=== PATIENT | male | born 1940 | race Caucasian/White ===

== ENCOUNTER 2017-02-04 22:49 | Inpatient (IN) | payer MEDICARE, OTHER ==
[2017-02-04 21:31] VITALS: BMI 37.5
[2017-02-04] MEDS ORDERED: Lidocaine 2% Inj (20ml) ONE (22:55)
[2017-02-04] MEDS ORDERED: Midazolam 2 MG/2 ML VIAL ONE ×2 (22:56→23:14)
[2017-02-04] MEDS ORDERED: Phenylephrine 10 mg/ml Inj ONE ×2 (23:31→23:33)
--- NOTE | 2017-02-05 00:09 | CP.PCM.PN ---
Subjective - Date & Time of Evaluation Date of Evaluation: 02/04/17 Time of Evaluation: 23:35 - Subjective Subjective: s/p LHCx for new LBBB Assessment and Plan (1) S/P angioplasty with stent Assessment & Plan: s/p LHCx for new LBBB - transfer from [facility] for code heart Coronary Anatomy Findings left main patent LAD - proximal 90% with haziness - mid 50-60% Diagonal - ostial 50% LCx stent patent RCA mild mid 40% LVEF 25-30% LVEDP 29 Post angioplasty of proximal LAD lesion there was thrombus noted in the proximal LAD for which intracoronary integrillin and heparin was given Proximal LAD stented with 3.5x15 xience MADELEINE Recommendations Cont with DAPT x 1 year evaluate for mid LAD lesion with nuclear stress test ( to follow ) who is his primary caridologist GDMT for CAD and CHF consult nephrology ( ) for HD patient to be followed by ( primary cps team lead for the patient ) Status: Acute
[2017-02-05] MEDS ORDERED: Iodixanol 320 MG/ML 200 ML BOTTLE IV ONE (00:37)
--- NOTE | 2017-02-05 00:58 | CP.PCM.CON ---
History of Present Illness - History of Present Illness History of Present Illness: 77 y/o male with h/o CAD,PR s/p stents in the past,HTN,DM,CHF,Hyperlipidemia , ESRD on hemod[facility]ys[facility] for Cardiac Cath .Patient c/o shortness of breath and epigastric pain associated with nausea.No palpitation,radiation of pain.In Er at [facility] the Troponin was elevated with new LBBB. Cardiology note- s/p LHCx for new LBBB - transfer from [facility] for code heart Coronary Anatomy Findings left main patent LAD - proximal 90% with haziness - mid 50-60% Diagonal - ostial 50% LCx stent patent RCA mild mid 40% LVEF 25-30% LVEDP 29 Post angioplasty of proximal LAD lesion there was thrombus noted in the proximal LAD for which intracoronary integrillin and heparin was given Proximal LAD stented with 3.5x15 xience MADELEINE Review of Systems - Constitutional Constitutional: Anorexia, Chills, Fatigue, Fever, Malaise, Weakness - EENT Eyes: absent: Diplopia, Loss of Vision Ears: absent: Ear Discharge, Ear Pain, Dizziness Nose/Mouth/Throat: absent: Epistaxis, Dry Mouth, Neck Pain - Cardiovascular Cardiovascular: As Per HPI, Dyspnea, Dyspnea on Exertion, Edema. absent: Chest Pain, Diaphoresis, Irregular Heart Rhythm, Pain Radiating to Arm/Neck/Jaw, Lightheadedness, Palpitations, Radiating Pain, Rapid Heart Rate, Syncope - Respiratory Respiratory: Dyspnea, Dyspnea on Exertion. absent: Cough, Wheezing - Gastrointestinal Gastrointestinal: Abdominal Pain, Diarrhea, Nausea. absent: Bloating, Vomiting - Genitourinary Genitourinary: absent: Dysuria, Flank Pain, Urinary Incontinence - Musculoskeletal Musculoskeletal: absent: Neck Pain, Numbness - Integumentary Integumentary: absent: Dry Skin, Rash - Neurological Neurological: absent: Confusion, Dizziness - Endocrine Endocrine: absent: Polydipsia - Hematologic/Lymphatic Hematologic: absent: Easy Bleeding Past Patient History - Infectious Disease Hx of Infectious Diseases: None - Tetanus Immunizations Tetanus Immunization: Unknown - Past Medical History & Family History Past Medical History?: Yes - Past Social History Smoking Status: Former Smoker Chewing Tobacco Use: No Cigar Use: No Occupation: retired Alcohol: Occasional Drugs: Denies Home Situation {Lives}: Alone - CARDIAC Hx Congestive Heart Failure: Yes Hx Hypercholesterolemia: Yes Hx Hypertension: Yes - PULMONARY Hx Respiratory Disorders: Yes - NEUROLOGICAL Hx Neurological Disorder: No - HEENT Hx HEENT Problems: Yes - RENAL Hx Chronic Kidney Disease: Yes Hx Kidney Stones: No - ENDOCRINE/METABOLIC Hx Endocrine Disorders: Yes - HEMATOLOGICAL/ONCOLOGICAL Hx Human Immunodeficiency Virus (HIV): No - INTEGUMENTARY Hx Dermatological Problems: Yes - MUSCULOSKELETAL/RHEUMATOLOGICAL Hx Musculoskeletal Disorders: No - GASTROINTESTINAL Hx Gastrointestinal Disorders: No - GENITOURINARY/GYNECOLOGICAL Hx Genitourinary Disorders: No - PSYCHIATRIC Hx Psychophysiologic Disorder: No Hx Substance Use: No - SURGICAL HISTORY Hx Coronary Stent: Yes - ANESTHESIA Hx Anesthesia: Yes Hx Anesthesia Reactions: No Hx Malignant Hyperthermia: No Meds Allergies/Adverse Reactions: Allergies Allergy/AdvReac Type Severity Reaction Status Date / Time Sulfa (Sulfonamide Allergy PAIN Verified 12/25/16 01:58 Antibiotics) milk AdvReac NAUSEA Verified 12/25/16 01:58 - Medications Medications: Current Medications Aspirin (Ecotrin) 81 mg PO DAILY [facility] Calcium Acetate (Phoslo) 3 mg PO AC [facility] Cinacalcet (Sensipar) 30 mg PO DAILY [facility] Home Med (Insulin Lispro [Humalog Kwikpen U-100]) 4 units SQ TID [facility] Insulin Glargine (Lantus) 10 unit SC DAILY [facility] Metoprolol Succinate (Toprol Xl) 25 mg PO DAILY [facility] Physical Exam - Constitutional Appears: Non-toxic, No Acute Distress - Head Exam Head Exam: ATRAUMATIC, NORMAL INSPECTION, NORMOCEPHALIC - Eye Exam Eye Exam: EOMI, Normal appearance, PERRL - ENT Exam ENT Exam: Mucous Membranes Moist, Normal Exam - Neck Exam Neck exam: Positive for: Full Rom, Normal Inspection - Respiratory Exam Respiratory Exam: Rales (rales in both bases with scattered rhonchi), NORMAL BREATHING PATTERN. absent: Accessory Muscle Use - Cardiovascular Exam Cardiovascular Exam: REGULAR RHYTHM. absent: JVD - GI/Abdominal Exam GI & Abdominal Exam: Normal Bowel Sounds, Soft. absent: Distended, Organomegaly , Tenderness - Rectal Exam Rectal Exam: Deferred - Extremities Exam Extremities exam: Positive for: pedal edema (bilateral 1+ edema of legs). Negative for: calf tenderness - Neurological Exam Neurological exam: Oriented x3 - Psychiatric Exam Psychiatric exam: Normal Affect - Skin Skin Exam: Normal Color, Warm Results - EKG Data EKG Interpreted by: Other (done at [facility],not seen.Will repaet in am) - Imaging and Cardiology Chest x-ray Status: Image reviewed by me (bilateral congestion) Assessment & Plan - Assessment and Plan (Free Text) Assessment: 1.CAD/ Acute PR - transfer from [facility] for code heart .patient with elevated troponin and EKG with new LBBB Post angioplasty of proximal LAD lesion there was thrombus noted in the proximal LAD for which intracoronary integrillin and heparin given Proximal LAD stented with 3.5x15 xience MADELEINE Coronary Anatomy Findings left main patent, LAD - proximal 90% with haziness - mid 50-60% Diagonal - ostial 50% LCx stent patent RCA mild mid 40% LVEF 25-30% LVEDP 29 2.DM on insulin 3.HTN on metoprolol 4.Hyperlipidemia-Crestor,repeat lipids 5.CHF-for HD today 6.ESRD on HD M,W,F for HD today. 7.Hyperkalemia-HD patient \f/u labs
[2017-02-05] MEDS ORDERED: Albuterol 0.083% Inhal Sol (2.5 mg/3 mL) UD INH STA (01:11)
[2017-02-05] MEDS ORDERED: Nitroglycerin 2% Ointment Foilpak UD TOP STA (02:42)
[2017-02-05 02:53] LABS: ABG ALLEN TEST POS; ARTERIAL BLOOD GAS HCO3 24.8 mmol/L (21-28); ARTERIAL BLOOD GAS O2 SAT 98.1 % (95-98); ARTERIAL BLOOD GAS PCO2 47 mm/Hg (35-45); ARTERIAL BLOOD GAS PH 7.35 (7.35-7.45); ARTERIAL BLOOD GAS PO2 140 mm/Hg (80-100); ARTERIAL BLOOD GAS TCO2 27.3 mmol/L (22-28)
[2017-02-05 05:30] LABS: BASO % 0.4 % (0.0-2.0); EOS % 0.2 % (0.0-4.0); HEMOGLOBIN 12.7 g/dL (12.0-18.0); MEAN CORPUSCULAR HEMOGLOBIN 29.6 pg (27.0-31.0); MEAN CORPUSCULAR HGB CONC 33.3 g/dL (33.0-37.0); MEAN PLATELET VOLUME 8.6 fL (7.2-11.7); MONO # 0.7 K/uL (0.0-0.8); NEUT # 9.2 K/uL (1.8-7.0); NEUT % 84.4 % (50.0-75.0); NRBC % 0.1 % (0.0-2.0); PLATELET COUNT 200 K/uL (130-400); RBC 4.29 Mil/uL (4.40-5.90); RED CELL DISTRIBUTION WIDTH 15.7 % (11.5-14.5); WHITE BLOOD COUNT 10.9 K/uL (4.8-10.8)
[2017-02-05 05:46] LABS: ALBUMIN 3.6 g/dL (3.5-5.0)
[2017-02-05 05:49] LABS: ALB/GLOB RATIO 1.1 (1.0-2.1)
[2017-02-05 05:50] LABS: CALCIUM 9.4 mg/dl (8.6-10.4); MAGNESIUM 2.1 mg/dL (1.6-2.3)
[2017-02-05 06:20] LABS: BANDS 2 % (0-2); LYMPHOCYTE 6 % (20-40); MONOCYTE 5 % (0-10); NEUTROPHIL 87 % (50-75); PLATELET ESTIMATE NORMAL (NORMAL); TOTAL CELLS COUNTED 100
[2017-02-05 06:21] LABS: TROPONIN I 54.9 ng/mL (0.00-0.120)
--- NOTE | 2017-02-05 07:27 | CP.PCM.PN ---
Subjective - Date & Time of Evaluation Date of Evaluation: 02/05/17 Time of Evaluation: 03:00 - Subjective Subjective: Patient evaluated for SOB, tachycardia, hypoxia developed. After patient arrived form cath lab tech was on bipap, gradually switched to ventimask, then became sob and hypoxic. I was called for above patient was already put back on the bipap 15/5/100%, spo2 improved, hr slowed down, ekg, LBBB noticed. CXR done at this time showed significant pulmonary venous congestion. HD requested and called for early hd for the patient, patient was not comfortable on bipap, fio2 reduced to 80%. Chest b/l some scattered ronchi CVS tachycardia PA soft Ext right arm av fistula, dp and pt puse felt on both legs, right groin no swelling [employer] patient oriented x3 no fnd Objective - Vital Signs/Intake and Output Vital Signs (last 24 hours): Temp Pulse Resp BP Pulse Ox 98.3 F 90 19 99/44 L 100 02/05/17 04:20 02/05/17 06:10 02/05/17 06:10 02/05/17 06:50 02/05/17 06:10 Intake and Output: 02/05/17 02/05/17 06:59 18:59 Intake Total 90 Output Total 20 Balance 70 - Medications Medications: Current Medications Aspirin (Ecotrin) 81 mg PO DAILY [facility] Calcium Acetate (Phoslo) 3 mg PO AC JO[facility] Cinacalcet (Sensipar) 30 mg PO DAILY [facility] Famotidine (Pepcid) 20 mg PO BID [facility] Home Med (Insulin Lispro [Humalog Kwikpen U-100]) 4 units SQ TID [facility] Insulin Glargine (Lantus) 10 unit SC DAILY [facility] Insulin Human Regular (Novolin R) 0 unit SC ACHS [facility] PRN Reason: Protocol Metoprolol Succinate (Toprol Xl) 25 mg PO DAILY [facility] Rosuvastatin Calcium (Crestor) 10 mg PO HS [facility] - Labs Labs: 02/05/17 05:25 02/05/17 05:25
[2017-02-05] MEDS: (Novolin R) Insulin Human Regular 100 units/ml vial SC SCH ×4 (07:45→21:36)
--- NOTE | 2017-02-05 07:49 | CP.PCM.CON ---
History of Present Illness - History of Present Illness History of Present Illness: Patient is well known to me from my practive. Patient is a 77 year old male with PMH HTN, CAD s/p PCI LAD and LCx, who presents from [facility] with dyspnea and new LBBB. The patient had intervention of in stent restenosis of the L circumflex artery in December and was to be scheduled for elective intervention of the proximal LAD. The patient did not follow up after coronary intervention. The patient complained of epigastric pain and dyspnea on the day of admission. Code heart was called due to new LBBB. The patient underwent cardiac catheteization and intervention by Dr. Fuentes. He was found to have haziness of the proximal LAD, suspicious for ruptured plaque. MADELEINE was placed. Troponin was noted to be 54. He is currently receiving HD in the ICU. There is no current chest pain. Review of Systems - Constitutional Constitutional: absent: As Per HPI, Anorexia, Chills, Daytime Sleepiness, Excessive Sweating, Fatigue, Fever, Frequent Falls, Headache, Increased Appetite , Lethargy, Malaise, Night Sweats, Snoring, Sleep Apnea, Weight Gain, Weight Loss, Weakness, Other - EENT Eyes: absent: As Per HPI, Blind Spots, Blurred Vision, Change in Vision, Decreased Night Vision, Diplopia, Discharge, Dry Eye, Exophthalmos, Floaters, Irritation, Itchy Eyes, Loss of Peripheral Vision, Pain, Photophobia, Requires Corrective Lenses, Sees Flashes, Spots in Vision, Tunnel Vision, Other Visual Disturbances, Loss of Vision, Other Ears: absent: As Per HPI, Decreased Hearing, Ear Discharge, Ear Pain, Tinnitus, Abnormal Hearing, Disequilibrium, Dizziness, Other Nose/Mouth/Throat: absent: As Per HPI, Epistaxis, Nasal Congestion, Nasal Discharge, Nasal Obstruction, Nasal Trauma, Nose Pain, Post Nasal Drip, Sinus Pain, Sinus Pressure, Bleeding Gums, Change in Voice, Dental Pain, Dry Mouth, Dysphagia, Halitosis, Hoarsness, Lip Swelling, Mouth Lesions, Mouth Pain, Odynophagia, Sore Throat, Throat Swelling, Tongue Swelling, Facial Pain, Neck Pain, Neck Mass, Other - Cardiovascular Cardiovascular: Dyspnea - Respiratory Respiratory: Dyspnea - Gastrointestinal Gastrointestinal: Abdominal Pain - Genitourinary Genitourinary: absent: As Per HPI, Change in Urinary Stream, Difficulty Urinating, Dysuria, Flank Pain, Hematuria, Pyuria, Nocturia, Urinary Incontinence, Urinary Frequency, Urinary Hesitance, Urinary Urgency, Voiding Freq/Small Amts, Freq UTI, Hx Renal/Bladder Calculi, Hx /Renal Surgery, Bladder Distension, Other - Musculoskeletal Musculoskeletal: absent: As Per HPI, Abnormal Gait, Arthralgias, Atrophy, Back Pain, Deformity, Joint Swelling, Limited Range of Motion, Loss of Height, Muscle Cramps, Muscle Weakness, Myalgias, Neck Pain, Numbness, Radiating Pain into Limb, Stiffness, Tingling, Other - Integumentary Integumentary: absent: As Per HPI, Acne, Alopecia, Bleeding Lesions, Change in Hair, Change in Nails, Change in Pigmentation, Changing Lesions, Dry Skin, Erythema, Furuncle, Hirsutism, Lesions, New Lesions, Non-Healing Lesions, Photosensitivity, Pruritus, Rash, Skin Pain, Skin Ulcer, Sores, Striae, Swelling , Unusual Bruising, Wounds, Jaundice, Other - Neurological Neurological: absent: As Per HPI, Abnormal Gait, Abnormal Hearing, Abnormal Movements, Abnormal Speech, Behavioral Changes, Burning Sensations, Confusion, Convulsions, Disequilibrium, Dizziness, Numbness, Focal Weakness, Frequent Falls , Headaches, Lack of Coordination, Loss of Vision, Memory Loss, Paresthesias, Radicular Pain, Restless Legs, Sensory Deficit, Syncope, Tingling, Tremor, Vertigo, Weakness, Other Visual Disturbances, Other - Psychiatric Psychiatric: absent: As Per HPI, Abnormal Sleep Pattern, Anhedonia, Anxiety, Auditory Hallucinations, Behavioral Changes, Change in Appetite, Change in Libido, Confusion, Depression, Difficulty Concentrating, Hallucinations, Homicidal Ideation, Hopelessness, Irritability, Memory Loss, Mood Swings, Panic Attacks, Paranoia, Suicidal Ideation, Visual Hallucinations, Tactile Hallucinations, Other - Endocrine Endocrine: absent: As Per HPI, Change in Body Appearance, Change in Libido, Cold Intolorance, Deepening of Voice, Excessive Sweating, Fatigue, Flushing, Heat Intolorance, Increase in Ring/Shoe/Hat Size, Palpitations, Polydipsia, Polyphagia, Polyuria, Other - Hematologic/Lymphatic Hematologic: absent: As Per HPI, Easy Bleeding, Easy Bruising, Lymphadenopathy, Other Past Patient History - Infectious Disease Hx of Infectious Diseases: None - Tetanus Immunizations Tetanus Immunization: Unknown - Past Medical History & Family History Past Medical History?: Yes - Past Social History Smoking Status: Former Smoker Chewing Tobacco Use: No Cigar Use: No Occupation: retired Alcohol: Occasional Drugs: Denies Home Situation {Lives}: Alone - CARDIAC Hx Congestive Heart Failure: Yes Hx Hypercholesterolemia: Yes Hx Hypertension: Yes - PULMONARY Hx Respiratory Disorders: Yes - NEUROLOGICAL Hx Neurological Disorder: No - HEENT Hx HEENT Problems: Yes - RENAL Hx Chronic Kidney Disease: Yes Hx Kidney Stones: No - ENDOCRINE/METABOLIC Hx Endocrine Disorders: Yes - HEMATOLOGICAL/ONCOLOGICAL Hx Human Immunodeficiency Virus (HIV): No - INTEGUMENTARY Hx Dermatological Problems: Yes - MUSCULOSKELETAL/RHEUMATOLOGICAL Hx Musculoskeletal Disorders: No - GASTROINTESTINAL Hx Gastrointestinal Disorders: No - GENITOURINARY/GYNECOLOGICAL Hx Genitourinary Disorders: No - PSYCHIATRIC Hx Psychophysiologic Disorder: No Hx Substance Use: No - SURGICAL HISTORY Hx Coronary Stent: Yes - ANESTHESIA Hx Anesthesia: Yes Hx Anesthesia Reactions: No Hx Malignant Hyperthermia: No Meds Allergies/Adverse Reactions: Allergies Allergy/AdvReac Type Severity Reaction Status Date / Time Sulfa (Sulfonamide Allergy PAIN Verified 12/25/16 01:58 Antibiotics) milk AdvReac NAUSEA Verified 12/25/16 01:58 - Medications Medications: Current Medications Aspirin (Ecotrin) 81 mg PO DAILY [facility] Calcium Acetate (Phoslo) 3 mg PO AC [facility] Cinacalcet (Sensipar) 30 mg PO DAILY [facility] Famotidine (Pepcid) 20 mg PO BID [facility] Home Med (Insulin Lispro [Humalog Kwikpen U-100]) 4 units SQ TID [facility] Insulin Glargine (Lantus) 10 unit SC DAILY [facility] Insulin Human Regular (Novolin R) 0 unit SC ACHS [facility] PRN Reason: Protocol Metoprolol Succinate (Toprol Xl) 25 mg PO DAILY [facility] Rosuvastatin Calcium (Crestor) 10 mg PO HS [facility] Physical Exam - Constitutional Appears: Non-toxic - Head Exam Head Exam: NORMAL INSPECTION - Eye Exam Eye Exam: Normal appearance - ENT Exam ENT Exam: Mucous Membranes Moist - Neck Exam Neck exam: Positive for: Normal Inspection - Respiratory Exam Respiratory Exam: Decreased Breath Sounds - Cardiovascular Exam Cardiovascular Exam: REGULAR RHYTHM - GI/Abdominal Exam GI & Abdominal Exam: Normal Bowel Sounds - Rectal Exam Rectal Exam: Deferred - Extremities Exam Extremities exam: Positive for: pedal edema - Back Exam Back exam: NORMAL INSPECTION - Neurological Exam Neurological exam: Alert, Oriented x3 - Psychiatric Exam Psychiatric exam: Normal Affect - Skin Skin Exam: Normal Color Results - Vital Signs Recent Vital Signs: Last Vital Signs Temp 97.5 F L 02/05/17 07:00 Pulse 90 02/05/17 07:00 Resp 20 02/05/17 07:00 BP 104/41 L 02/05/17 07:00 Pulse Ox 100 02/05/17 07:00 - Labs Result Diagrams: 02/05/17 05:25 02/05/17 05:25 Labs: Laboratory Results - last 24 hr 02/05/17 02/05/17 02/05/17 02:45 05:25 05:25 WBC 10.9 H RBC 4.29 L Hgb 12.7 Hct 38.2 MCV 89.0 MCH 29.6 MCHC 33.3 RDW 15.7 H Plt Count 200 MPV 8.6 Neut % (Auto) 84.4 H Lymph % (Auto) 9.0 L [place] % (Auto) 6.0 Eos % (Auto) 0.2 Baso % (Auto) 0.4 Neut # 9.2 H Lymph # 1.0 [place] # 0.7 Eos # 0.0 Baso # 0.0 Neutrophils % (Manual) 87 H Band Neutrophils % 2 Lymphocytes % (Manual) 6 L Monocytes % (Manual) 5 Platelet Estimate Normal Puncture Site Lr pCO2 47 H pO2 140 H HCO3 24.8 ABG pH 7.35 ABG Total CO2 27.3 ABG O2 Saturation 98.1 H ABG Base Excess -0.2 [place] Test Pos ABG Potassium 5.5 H A-a O2 Difference 514.0 Respiratory Index 3.7 Sodium 137.0 138 Chloride 101.0 92 L Glucose 157 H Lactate 1.1 Vent Mode Bipap FiO2 100.0 Inspiratory BiPAP 15 Expiratory BiPAP 5 Potassium 6.5 H* Carbon Dioxide 27 Anion Gap 26 H BUN 81 H Creatinine 11.6 H* Est GFR ( Amer) 5 Est GFR (Non-Af Amer) 4 POC Glucose (mg/dL) Random Glucose 131 H Calcium 9.4 Phosphorus 7.0 H Magnesium 2.1 Total Bilirubin 0.5 AST 117 H ALT 29 Alkaline Phosphatase 89 Troponin I 54.9000 H* NT-Pro-B Natriuret Pep 68973 H Total Protein 7.0 Albumin 3.6 Globulin 3.4 Albumin/Globulin Ratio 1.1 Triglycerides 295 H Cholesterol 148 LDL Cholesterol Direct 78 HDL Cholesterol 23 L Arterial Blood Potassium 5.5 H 02/05/17 07:15 WBC RBC Hgb Hct MCV MCH MCHC RDW Plt Count MPV Neut % (Auto) Lymph % (Auto) [place] % (Auto) Eos % (Auto) Baso % (Auto) Neut # Lymph # [place] # Eos # Baso # Neutrophils % (Manual) Band Neutrophils % Lymphocytes % (Manual) Monocytes % (Manual) Platelet Estimate Puncture Site pCO2 pO2 HCO3 ABG pH ABG Total CO2 ABG O2 Saturation ABG Base Excess [place] Test ABG Potassium A-a O2 Difference Respiratory Index Sodium Chloride Glucose Lactate Vent Mode FiO2 Inspiratory BiPAP Expiratory BiPAP Potassium Carbon Dioxide Anion Gap BUN Creatinine Est GFR ( Amer) Est GFR (Non-Af Amer) POC Glucose (mg/dL) 111 H Random Glucose Calcium Phosphorus Magnesium Total Bilirubin AST ALT Alkaline Phosphatase Troponin I NT-Pro-B Natriuret Pep Total Protein Albumin Globulin Albumin/Globulin Ratio Triglycerides Cholesterol LDL Cholesterol Direct HDL Cholesterol Arterial Blood Potassium - EKG Data EKG Interpreted by: Myself Assessment & Plan (1) Acute myocardial infarction involving left anterior descending (LAD) coronary artery Assessment and Plan: will monitor in ICU. check cardiac enzymes. check echocardiogram. continue ASA/Brilinta. Status: Acute (2) Diabetes mellitus Assessment and Plan: medical therapy Status: Chronic (3) ESRD (end stage renal disease) Assessment and Plan: on dialysis Status: Chronic (4) HTN (hypertension) Assessment and Plan: blood pressure control Status: Chronic
[2017-02-05 08:16] LABS: CALCIUM 9.3 mg/dl (8.6-10.4)
--- NOTE | 2017-02-05 09:21 | RAD ---
Chest x-ray single frontal view History: Shortness of breath. Comparison: 02/05/2017 Findings: Prominent diffuse increased interstitial lung markings bilaterally. Additional superimposed confluent consolidative opacity seen throughout the left lung and within the right mid to lower lung zone. Right axillary vascular stent in place. Calcification at the aortic knob. Cardiomegaly. Degenerative changes in the spine and shoulders. Impression: Prominent diffuse increased interstitial lung markings bilaterally. Additional superimposed confluent consolidative opacity seen throughout the left lung and within the right mid to lower lung zone. Right axillary vascular stent in place. Calcification at the aortic knob. Cardiomegaly.
[2017-02-05] MEDS ORDERED: (Lantus) Insulin Glargine, Recombinant SC SCH (10:00)
[2017-02-05] MEDS ORDERED: (Novolog) Insulin Aspart, Recombinant 100 u/ml 10 ml vial SC SCH (10:00)
[2017-02-05] MEDS: Metoprolol Succinate 25 mg XL Tab PO SCH (10:01)
--- NOTE | 2017-02-05 11:16 | CP.PCM.CON ---
History of Present Illness - History of Present Illness History of Present Illness: 77 y/o male with h/o CAD,SC s/p stents in the past,HTN,DM,CHF,Hyperlipidemia , ESRD [facility] for Card[facility] Cath .Patient c/o shortness of breath and epigastric pain associated with nausea.No palpitation,radiation of pain.In Er at [facility] the Troponin was elevated with new LBBB. Cardiology note- s/p LHCx for new LBBB - transfer from [facility] for code heart Coronary Anatomy Findings left main patent LAD - proximal 90% with haziness - mid 50-60% Diagonal - ostial 50% LCx stent patent RCA mild mid 40% LVEF 25-30% LVEDP 29 Post angioplasty of proximal LAD lesion there was thrombus noted in the proximal LAD for which intracoronary integrillin and heparin was given Proximal LAD stented with 3.5x15 xience MADELEINE PMH: ESRD DM 2 HTN CAD CHF RECURRENCES DL PSH: CARDIAC STENT AV FISTULA S/P EMERGENT DIALYSIS LAST PM FOR CHF Review of Systems - Constitutional Constitutional: Daytime Sleepiness - EENT Eyes: absent: As Per HPI, Blind Spots, Blurred Vision, Change in Vision, Decreased Night Vision, Diplopia, Discharge, Dry Eye, Exophthalmos, Floaters, Irritation, Itchy Eyes, Loss of Peripheral Vision, Pain, Photophobia, Requires Corrective Lenses, Sees Flashes, Spots in Vision, Tunnel Vision, Other Visual Disturbances, Loss of Vision, Other Ears: absent: As Per HPI, Decreased Hearing, Ear Discharge, Ear Pain, Tinnitus, Abnormal Hearing, Disequilibrium, Dizziness, Other Nose/Mouth/Throat: absent: As Per HPI, Epistaxis, Nasal Congestion, Nasal Discharge, Nasal Obstruction, Nasal Trauma, Nose Pain, Post Nasal Drip, Sinus Pain, Sinus Pressure, Bleeding Gums, Change in Voice, Dental Pain, Dry Mouth, Dysphagia, Halitosis, Hoarsness, Lip Swelling, Mouth Lesions, Mouth Pain, Odynophagia, Sore Throat, Throat Swelling, Tongue Swelling, Facial Pain, Neck Pain, Neck Mass, Other - Cardiovascular Cardiovascular: Dyspnea on Exertion - Respiratory Respiratory: Dyspnea on Exertion - Gastrointestinal Gastrointestinal: Constipation - Genitourinary Genitourinary: As Per HPI - Musculoskeletal Musculoskeletal: Muscle Weakness, Stiffness - Integumentary Integumentary: absent: As Per HPI, Acne, Alopecia, Bleeding Lesions, Change in Hair, Change in Nails, Change in Pigmentation, Changing Lesions, Dry Skin, Erythema, Furuncle, Hirsutism, Lesions, New Lesions, Non-Healing Lesions, Photosensitivity, Pruritus, Rash, Skin Pain, Skin Ulcer, Sores, Striae, Swelling , Unusual Bruising, Wounds, Jaundice, Other - Neurological Neurological: absent: As Per HPI, Abnormal Gait, Abnormal Hearing, Abnormal Movements, Abnormal Speech, Behavioral Changes, Burning Sensations, Confusion, Convulsions, Disequilibrium, Dizziness, Numbness, Focal Weakness, Frequent Falls , Headaches, Lack of Coordination, Loss of Vision, Memory Loss, Paresthesias, Radicular Pain, Restless Legs, Sensory Deficit, Syncope, Tingling, Tremor, Vertigo, Weakness, Other Visual Disturbances, Other Past Patient History - Infectious Disease Hx of Infectious Diseases: None - Tetanus Immunizations Tetanus Immunization: Unknown - Past Medical History & Family History Past Medical History?: Yes - Past Social History Smoking Status: Former Smoker Chewing Tobacco Use: No Cigar Use: No Occupation: retired Alcohol: Occasional Drugs: Denies Home Situation {Lives}: Alone - CARDIAC Hx Congestive Heart Failure: Yes Hx Hypercholesterolemia: Yes Hx Hypertension: Yes - PULMONARY Hx Respiratory Disorders: Yes - NEUROLOGICAL Hx Neurological Disorder: No - HEENT Hx HEENT Problems: Yes - RENAL Hx Chronic Kidney Disease: Yes Date of Last Dialysis Treatment: 02/04/17 Hx Kidney Stones: No - ENDOCRINE/METABOLIC Hx Endocrine Disorders: Yes Hx Diabetes Mellitus Type 2: Yes - HEMATOLOGICAL/ONCOLOGICAL Hx Human Immunodeficiency Virus (HIV): No - INTEGUMENTARY Hx Dermatological Problems: Yes - MUSCULOSKELETAL/RHEUMATOLOGICAL Hx Musculoskeletal Disorders: No - GASTROINTESTINAL Hx Gastrointestinal Disorders: No - GENITOURINARY/GYNECOLOGICAL Hx Genitourinary Disorders: No - PSYCHIATRIC Hx Psychophysiologic Disorder: No Hx Substance Use: No - SURGICAL HISTORY Hx Arteriovenous Shunt: Yes Hx Cardiac Catheterization: Yes Hx Coronary Stent: Yes - ANESTHESIA Hx Anesthesia: Yes Hx Anesthesia Reactions: No Hx Malignant Hyperthermia: No Meds Allergies/Adverse Reactions: Allergies Allergy/AdvReac Type Severity Reaction Status Date / Time Sulfa (Sulfonamide Allergy PAIN Verified 12/25/16 01:58 Antibiotics) milk AdvReac NAUSEA Verified 12/25/16 01:58 - Medications Medications: Current Medications Aspirin (Ecotrin) 81 mg PO DAILY JOEL Last Admin: 02/05/17 10:01 Dose: 81 mg Calcium Acetate (Phoslo) 667 mg PO AC [facility] Cinacalcet (Sensipar) 30 mg PO DAILY [facility] Last Admin: 02/05/17 10:01 Dose: 30 mg Famotidine (Pepcid) 20 mg PO DAILY [facility] Last Admin: 02/05/17 10:01 Dose: 20 mg Heparin Sodium (Porcine) (Heparin) 5,000 units SC Q8 [facility] Insulin Glargine (Lantus) 10 unit SC DAILY [facility] Insulin Human Regular (Novolin R) 0 unit SC ACHS [facility] PRN Reason: Protocol Last Admin: 02/05/17 07:45 Dose: Not Given Metoprolol Succinate (Toprol Xl) 25 mg PO DAILY [facility] Last Admin: 02/05/17 10:01 Dose: 25 mg Rosuvastatin Calcium (Crestor) 10 mg PO HS [facility] Ticagrelor (Brilinta) 90 mg PO BID [facility] Last Admin: 02/05/17 10:01 Dose: 90 mg Physical Exam - Constitutional Appears: Well, Chronically Ill - Head Exam Head Exam: ATRAUMATIC, NORMAL INSPECTION - Eye Exam Eye Exam: EOMI, Normal appearance - Neck Exam Neck exam: Positive for: Normal Inspection. Negative for: Tenderness - Respiratory Exam Respiratory Exam: Clear to Auscultation Bilateral, NORMAL BREATHING PATTERN - Cardiovascular Exam Cardiovascular Exam: REGULAR RHYTHM, +S1 - GI/Abdominal Exam GI & Abdominal Exam: Soft. absent: Tenderness - Extremities Exam Extremities exam: Positive for: normal inspection. Negative for: tenderness - Neurological Exam Neurological exam: Alert, Oriented x3 - Skin Skin Exam: Dry Results - Vital Signs Recent Vital Signs: Last Vital Signs Temp 97.5 F L 02/05/17 08:00 Pulse 82 02/05/17 11:10 Resp 16 02/05/17 11:10 BP 125/61 02/05/17 10:34 Pulse Ox 94 L 02/05/17 11:10 - Labs Result Diagrams: 02/05/17 05:25 02/05/17 07:48 Labs: Laboratory Results - last 24 hr 02/05/17 02/05/17 02/05/17 02:45 05:25 05:25 WBC RBC Hgb Hct MCV MCH MCHC RDW Plt Count MPV Neut % (Auto) Lymph % (Auto) [place] % (Auto) Eos % (Auto) Baso % (Auto) Neut # Lymph # [place] # Eos # Baso # Neutrophils % (Manual) Band Neutrophils % Lymphocytes % (Manual) Monocytes % (Manual) Platelet Estimate Puncture Site Lr pCO2 47 H pO2 140 H HCO3 24.8 ABG pH 7.35 ABG Total CO2 27.3 ABG O2 Saturation 98.1 H ABG Base Excess -0.2 [place] Test Pos ABG Potassium 5.5 H A-a O2 Difference 514.0 Respiratory Index 3.7 Sodium 137.0 138 Chloride 101.0 92 L Glucose 157 H Lactate 1.1 Vent Mode Bipap FiO2 100.0 Inspiratory BiPAP 15 Expiratory BiPAP 5 Potassium 6.5 H* Carbon Dioxide 27 Anion Gap 26 H BUN 81 H Creatinine 11.6 H* Est GFR ( Amer) 5 Est GFR (Non-Af Amer) 4 POC Glucose (mg/dL) Random Glucose 131 H Hemoglobin A1c 5.4 Calcium 9.4 Phosphorus 7.0 H Magnesium 2.1 Total Bilirubin 0.5 AST 117 H ALT 29 Alkaline Phosphatase 89 Troponin I 54.9000 H* NT-Pro-B Natriuret Pep 58503 H Total Protein 7.0 Albumin 3.6 Globulin 3.4 Albumin/Globulin Ratio 1.1 Triglycerides 295 H Cholesterol 148 LDL Cholesterol Direct 78 HDL Cholesterol 23 L Arterial Blood Potassium 5.5 H 02/05/17 02/05/17 02/05/17 05:25 07:15 07:48 WBC 10.9 H RBC 4.29 L Hgb 12.7 Hct 38.2 MCV 89.0 MCH 29.6 MCHC 33.3 RDW 15.7 H Plt Count 200 MPV 8.6 Neut % (Auto) 84.4 H Lymph % (Auto) 9.0 L [place] % (Auto) 6.0 Eos % (Auto) 0.2 Baso % (Auto) 0.4 Neut # 9.2 H Lymph # 1.0 [place] # 0.7 Eos # 0.0 Baso # 0.0 Neutrophils % (Manual) 87 H Band Neutrophils % 2 Lymphocytes % (Manual) 6 L Monocytes % (Manual) 5 Platelet Estimate Normal Puncture Site pCO2 pO2 HCO3 ABG pH ABG Total CO2 ABG O2 Saturation ABG Base Excess [place] Test ABG Potassium A-a O2 Difference Respiratory Index Sodium 140 Chloride 93 L Glucose Lactate Vent Mode FiO2 Inspiratory BiPAP Expiratory BiPAP Potassium 4.2 Carbon Dioxide 27 Anion Gap 24 H BUN 34 H Creatinine 6.3 H Est GFR ( Amer) 10 Est GFR (Non-Af Amer) 9 POC Glucose (mg/dL) 111 H Random Glucose 126 H Hemoglobin A1c Calcium 9.3 Phosphorus Magnesium Total Bilirubin AST ALT Alkaline Phosphatase Troponin I NT-Pro-B Natriuret Pep Total Protein Albumin Globulin Albumin/Globulin Ratio Triglycerides Cholesterol LDL Cholesterol Direct HDL Cholesterol Arterial Blood Potassium 02/05/17 10:58 WBC RBC Hgb Hct MCV MCH MCHC RDW Plt Count MPV Neut % (Auto) Lymph % (Auto) [place] % (Auto) Eos % (Auto) Baso % (Auto) Neut # Lymph # [place] # Eos # Baso # Neutrophils % (Manual) Band Neutrophils % Lymphocytes % (Manual) Monocytes % (Manual) Platelet Estimate Puncture Site pCO2 pO2 HCO3 ABG pH ABG Total CO2 ABG O2 Saturation ABG Base Excess [place] Test ABG Potassium A-a O2 Difference Respiratory Index Sodium Chloride Glucose Lactate Vent Mode FiO2 Inspiratory BiPAP Expiratory BiPAP Potassium Carbon Dioxide Anion Gap BUN Creatinine Est GFR ( Amer) Est GFR (Non-Af Amer) POC Glucose (mg/dL) 129 H Random Glucose Hemoglobin A1c Calcium Phosphorus Magnesium Total Bilirubin AST ALT Alkaline Phosphatase Troponin I NT-Pro-B Natriuret Pep Total Protein Albumin Globulin Albumin/Globulin Ratio Triglycerides Cholesterol LDL Cholesterol Direct HDL Cholesterol Arterial Blood Potassium Assessment & Plan (1) CAD (coronary artery disease) Status: Acute (2) Type 2 diabetes mellitus with diabetic nephropathy Status: Acute (3) CHF (congestive heart failure) Status: Acute (4) Diabetes mellitus Status: Chronic (5) ESRD (end stage renal disease) Status: Chronic (6) HTN (hypertension) Status: Chronic - Assessment and Plan (Free Text) Plan: AWAIT FURTHER CARDIAC PLANS SAME MEDS DIALYSIS MWF
--- NOTE | 2017-02-05 11:44 | CP.PCM.HP ---
<Hilario Saleemia V - Last Filed: 02/05/17 13:48> Meds Allergies/Adverse Reactions: Allergies Allergy/AdvReac Type Severity Reaction Status Date / Time Sulfa (Sulfonamide Allergy PAIN Verified 12/25/16 01:58 Antibiotics) milk AdvReac NAUSEA Verified 12/25/16 01:58 Results - Vital Signs Recent Vital Signs: Last Vital Signs Temp 98.1 F 02/05/17 12:00 Pulse 82 02/05/17 11:10 Resp 16 02/05/17 11:10 BP 125/61 02/05/17 10:34 Pulse Ox 94 L 02/05/17 11:10 - Labs Result Diagrams: 02/05/17 05:25 02/05/17 07:48 Labs: Laboratory Results - last 24 hr 02/05/17 02/05/17 02/05/17 02:45 05:25 05:25 WBC RBC Hgb Hct MCV MCH MCHC RDW Plt Count MPV Neut % (Auto) Lymph % (Auto) Clark % (Auto) Eos % (Auto) Baso % (Auto) Neut # Lymph # Clark # Eos # Baso # Neutrophils % (Manual) Band Neutrophils % Lymphocytes % (Manual) Monocytes % (Manual) Platelet Estimate Puncture Site Lr pCO2 47 H pO2 140 H HCO3 24.8 ABG pH 7.35 ABG Total CO2 27.3 ABG O2 Saturation 98.1 H ABG Base Excess -0.2 Dudley Test Pos ABG Potassium 5.5 H A-a O2 Difference 514.0 Respiratory Index 3.7 Sodium 137.0 138 Chloride 101.0 92 L Glucose 157 H Lactate 1.1 Vent Mode Bipap FiO2 100.0 Inspiratory BiPAP 15 Expiratory BiPAP 5 Potassium 6.5 H* Carbon Dioxide 27 Anion Gap 26 H BUN 81 H Creatinine 11.6 H* Est GFR ( Amer) 5 Est GFR (Non-Af Amer) 4 POC Glucose (mg/dL) Random Glucose 131 H Hemoglobin A1c 5.4 Calcium 9.4 Phosphorus 7.0 H Magnesium 2.1 Total Bilirubin 0.5 AST 117 H ALT 29 Alkaline Phosphatase 89 Troponin I 54.9000 H* NT-Pro-B Natriuret Pep 86815 H Total Protein 7.0 Albumin 3.6 Globulin 3.4 Albumin/Globulin Ratio 1.1 Triglycerides 295 H Cholesterol 148 LDL Cholesterol Direct 78 HDL Cholesterol 23 L Arterial Blood Potassium 5.5 H 07/31/17 07/31/17 07/31/17 05:25 07:15 07:48 WBC 10.9 H RBC 4.29 L Hgb 12.7 Hct 38.2 MCV 89.0 MCH 29.6 MCHC 33.3 RDW 15.7 H Plt Count 200 MPV 8.6 Neut % (Auto) 84.4 H Lymph % (Auto) 9.0 L Clark % (Auto) 6.0 Eos % (Auto) 0.2 Baso % (Auto) 0.4 Neut # 9.2 H Lymph # 1.0 Clark # 0.7 Eos # 0.0 Baso # 0.0 Neutrophils % (Manual) 87 H Band Neutrophils % 2 Lymphocytes % (Manual) 6 L Monocytes % (Manual) 5 Platelet Estimate Normal Puncture Site pCO2 pO2 HCO3 ABG pH ABG Total CO2 ABG O2 Saturation ABG Base Excess Dudley Test ABG Potassium A-a O2 Difference Respiratory Index Sodium 140 Chloride 93 L Glucose Lactate Vent Mode FiO2 Inspiratory BiPAP Expiratory BiPAP Potassium 4.2 Carbon Dioxide 27 Anion Gap 24 H BUN 34 H Creatinine 6.3 H Est GFR ( Amer) 10 Est GFR (Non-Af Amer) 9 POC Glucose (mg/dL) 111 H Random Glucose 126 H Hemoglobin A1c Calcium 9.3 Phosphorus Magnesium Total Bilirubin AST ALT Alkaline Phosphatase Troponin I NT-Pro-B Natriuret Pep Total Protein Albumin Globulin Albumin/Globulin Ratio Triglycerides Cholesterol LDL Cholesterol Direct HDL Cholesterol Arterial Blood Potassium 02/05/17 10:58 WBC RBC Hgb Hct MCV MCH MCHC RDW Plt Count MPV Neut % (Auto) Lymph % (Auto) Clark % (Auto) Eos % (Auto) Baso % (Auto) Neut # Lymph # Clark # Eos # Baso # Neutrophils % (Manual) Band Neutrophils % Lymphocytes % (Manual) Monocytes % (Manual) Platelet Estimate Puncture Site pCO2 pO2 HCO3 ABG pH ABG Total CO2 ABG O2 Saturation ABG Base Excess Dudley Test ABG Potassium A-a O2 Difference Respiratory Index Sodium Chloride Glucose Lactate Vent Mode FiO2 Inspiratory BiPAP Expiratory BiPAP Potassium Carbon Dioxide Anion Gap BUN Creatinine Est GFR ( Amer) Est GFR (Non-Af Amer) POC Glucose (mg/dL) 129 H Random Glucose Hemoglobin A1c Calcium Phosphorus Magnesium Total Bilirubin AST ALT Alkaline Phosphatase Troponin I NT-Pro-B Natriuret Pep Total Protein Albumin Globulin Albumin/Globulin Ratio Triglycerides Cholesterol LDL Cholesterol Direct HDL Cholesterol Arterial Blood Potassium Attending/Attestation - Attestation I have personally seen and examined this patient.: Yes I have fully participated in the care of the patient.: Yes I have reviewed all pertinent clinical information: Yes Notes (Text): Patient seen, examined and case discussed with ICU resident. Patient seen in BED ICU 16 this morning. Discussed with patient's lock installer, Dr. Montes De Oca. Patient with hx of CAD (left circumflex stented in the past), who came into [facility] for shortness of breathe and new LBBB. Patient transferred to [facility] as [facility] overnight, and s/p angioplasty of proximal LAD lesion there was thrombus noted in the proximal LAD for which intracoronary integrillin and heparin was given by subcontract administrator environmental remediation engineer (Dr. Fuentes). Patient is currently on aspirin, brilinta, statin, and beta-christopher. Patient reports shortness of breathe in light of ESRD/systolic and diastolic heart failure/and prior hx of pneumonia. Completed echo awaiting report (1) ACS (acute coronary syndrome) New LBBB Coronary Artery Disease Assessment and Plan: Admit to ICU Patient was code heart; transferred from [facility] for shortness of breathe, LBBB , and positive troponin Cardiology: Dr. Montes De Oca, help appreciated Cardiology (code heart): Dr. Fuentes, help appreciated Risk factors: DM, HTN, CAD, Prior [place], ESRD ASA 81mg PO daily Brillinta 90mg PO BID started today, 02/05/17 Toprol XL 25mg PO daily Crestor 10mg PO HS HgbA1c: 5.4 Lipid panel: TG 295, Cholesterol 148, LDL 78, HDL 23 Echo: f/u Prior Echo (12/26/16): left ventricle is mildly dilated. borderline concentric left ventricular hypertrophy. systolic function moderately to severely impaired. 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 Nguyen, help appreciated Received dialysis this morning, 02/05/17 Calcium acetate Sensipar 30mg PO daily Status: Chronic (3) Diabetes mellitus Assessment and Plan: HgbA1c: 5.4 Lipid panel: TG 295, Cholesterol 148, LDL 78, HDL 23 Accuchecks QACHS Lantus 10 units SC daily ISS SC Status: Chronic (4) Abdominal pain Status: Acute Will order for lipase and amylase possible symptom of ACS? Status: Chronic (5) SOB (shortness of breath) Assessment and Plan: CXR (02/05/17): prominent diffuse increased interstitial lung markings bilaterally; Superimposed confluent consolidate opacity throughout the left lung and within the right mid to lower lung zone. Cardiomegaly Ordered for Strep pneumoniae, legionella urine, and Mycoplasma IgM Former smoker--> tobacco cessation provided; quit 15 years ago Echocardiogram completed-->awaiting report Prior hospitalization: systolic/diastolic CHF and pneumonia Status: Acute (6) Prophylactic measure Assessment and Plan: Pepcid 20mg PO daily heparin 5000 units subq 8hours Monitor weight daily Monitor intake and output General Scrap Worker referral Renal Diet Status: Acute <Sultana Sauceda - Last Filed: 02/05/17 19:51> History of Present Illness - History of Present Illness History of Present Illness: CC: "I had a heart attack." HPI: 77 year old male with past medical history of [place] (2017), ESRD, DM, HTN, and hypercholesteremia, presents to the hospital after having cold sweats, shortness of breath, and right abdominal pain that started last night at 7pm. He reports feeling nausea and felt as if he was going to vomit, but couldn't. The patient went to [facility] last night who then transferred him here for cardiac catheterization. At [facility], he was diagnosed with a left bundle branch block and LAD 90% stenosed. Patient has had two stents placed earlier this year. He currently reports feeling fatigued. Patient denies chest pain, palpitations, shortness of breath, nausea, vomiting, abdominal pain, dizzy, vision changes, dysuria, and headaches. PMD: "couldn't remember his name" PMHx: [place] (2017), ESRD, dialysis, DM, HTN, hypercholesteremia. SurgHx: 2 stents 2017' Right AV fistula FamHx: Father- [place] SocHx: 3ppd for "about 25 years"; occasional drinker (wine); denies drug use. Allergies: sulfa (rash, swelling); dairy Medications: aspirin 81mg daily, phoslo 667mg, 3 tabs daily, sensipar 30mg daily , ergocalciferol 50,000 units weekly, pepcid 20 mg BID, Lantus 10 units SC daily , Lispro 4 units SC TID, Toprol 25mg ER Q24hr, Nystatin cream topically TID, Pravastatin 40mg HS, Brillinta 90mg BID. Present on Admission - Present on Admission Any Indicators Present on Admission: No History of Uncontrolled Diabetes: No Review of Systems - Constitutional Constitutional: Fatigue. absent: Fever, Headache - EENT Eyes: Other Visual Disturbances. absent: Change in Vision Ears: absent: Dizziness - Cardiovascular Cardiovascular: absent: Chest Pain, Dyspnea, Lightheadedness, Palpitations - Respiratory Respiratory: absent: Cough, Dyspnea - Gastrointestinal Gastrointestinal: Heartburn. absent: Abdominal Pain, Constipation, Diarrhea, Nausea - Genitourinary Genitourinary: absent: Dysuria, Urinary Frequency - Integumentary Integumentary: absent: Swelling - Neurological Neurological: absent: Dizziness, Headaches, Loss of Vision, Other Visual Disturbances - Endocrine Endocrine: Fatigue. absent: Palpitations Past Patient History - Infectious Disease Hx of Infectious Diseases: None - Tetanus Immunizations Tetanus Immunization: Unknown - Past Medical History & Family History Past Medical History?: Yes - Past Social History Smoking Status: Former Smoker Chewing Tobacco Use: No Cigar Use: No Occupation: retired Alcohol: Occasional Drugs: Denies Home Situation {Lives}: Alone - CARDIAC Hx Congestive Heart Failure: Yes Hx Hypercholesterolemia: Yes Hx Hypertension: Yes - PULMONARY Hx Respiratory Disorders: Yes - NEUROLOGICAL Hx Neurological Disorder: No - HEENT Hx HEENT Problems: Yes - RENAL Hx Chronic Kidney Disease: Yes Date of Last Dialysis Treatment: 02/04/17 Hx Kidney Stones: No - ENDOCRINE/METABOLIC Hx Endocrine Disorders: Yes Hx Diabetes Mellitus Type 2: Yes - HEMATOLOGICAL/ONCOLOGICAL Hx Human Immunodeficiency Virus (HIV): No - INTEGUMENTARY Hx Dermatological Problems: Yes - MUSCULOSKELETAL/RHEUMATOLOGICAL Hx Musculoskeletal Disorders: No - GASTROINTESTINAL Hx Gastrointestinal Disorders: No - GENITOURINARY/GYNECOLOGICAL Hx Genitourinary Disorders: No - PSYCHIATRIC Hx Psychophysiologic Disorder: No Hx Substance Use: No - SURGICAL HISTORY Hx Arteriovenous Shunt: Yes Hx Cardiac Catheterization: Yes Hx Coronary Stent: Yes - ANESTHESIA Hx Anesthesia: Yes Hx Anesthesia Reactions: No Hx Malignant Hyperthermia: No Physical Exam - Head Exam Head Exam: NORMAL INSPECTION, NORMOCEPHALIC - Eye Exam Eye Exam: EOMI, Normal appearance - ENT Exam ENT Exam: Mucous Membranes Moist - Neck Exam Neck exam: Positive for: Full Rom - Respiratory Exam Respiratory Exam: Clear to Auscultation Bilateral, NORMAL BREATHING PATTERN. absent: Rhonchi, Wheezes - Cardiovascular Exam Cardiovascular Exam: +S1, +S2 - GI/Abdominal Exam GI & Abdominal Exam: Normal Bowel Sounds. absent: Tenderness - Extremities Exam Extremities exam: Positive for: pedal edema. Negative for: tenderness - Neurological Exam Neurological exam: Alert, Oriented x3 - Psychiatric Exam Psychiatric exam: Normal Affect, Normal Mood - Skin Skin Exam: Dry, Intact, Normal Color, Warm Results - Vital Signs Recent Vital Signs: Last Vital Signs Temp 97.5 F L 02/05/17 08:00 Pulse 82 02/05/17 11:10 Resp 16 02/05/17 11:10 BP 125/61 02/05/17 10:34 Pulse Ox 94 L 02/05/17 11:10 - Labs Result Diagrams: 02/05/17 05:25 02/05/17 07:48 Labs: Laboratory Results - last 24 hr 02/05/17 02/05/17 02/05/17 02:45 05:25 05:25 WBC RBC Hgb Hct MCV MCH MCHC RDW Plt Count MPV Neut % (Auto) Lymph % (Auto) Clark % (Auto) Eos % (Auto) Baso % (Auto) Neut # Lymph # Clark # Eos # Baso # Neutrophils % (Manual) Band Neutrophils % Lymphocytes % (Manual) Monocytes % (Manual) Platelet Estimate Puncture Site Lr pCO2 47 H pO2 140 H HCO3 24.8 ABG pH 7.35 ABG Total CO2 27.3 ABG O2 Saturation 98.1 H ABG Base Excess -0.2 Dudley Test Pos ABG Potassium 5.5 H A-a O2 Difference 514.0 Respiratory Index 3.7 Sodium 137.0 138 Chloride 101.0 92 L Glucose 157 H Lactate 1.1 Vent Mode Bipap FiO2 100.0 Inspiratory BiPAP 15 Expiratory BiPAP 5 Potassium 6.5 H* Carbon Dioxide 27 Anion Gap 26 H BUN 81 H Creatinine 11.6 H* Est GFR ( Amer) 5 Est GFR (Non-Af Amer) 4 POC Glucose (mg/dL) Random Glucose 131 H Hemoglobin A1c 5.4 Calcium 9.4 Phosphorus 7.0 H Magnesium 2.1 Total Bilirubin 0.5 AST 117 H ALT 29 Alkaline Phosphatase 89 Troponin I 54.9000 H* NT-Pro-B Natriuret Pep 22182 H Total Protein 7.0 Albumin 3.6 Globulin 3.4 Albumin/Globulin Ratio 1.1 Triglycerides 295 H Cholesterol 148 LDL Cholesterol Direct 78 HDL Cholesterol 23 L Arterial Blood Potassium 5.5 H 02/05/17 02/05/17 02/05/17 05:25 07:15 07:48 WBC 10.9 H RBC 4.29 L Hgb 12.7 Hct 38.2 MCV 89.0 MCH 29.6 MCHC 33.3 RDW 15.7 H Plt Count 200 MPV 8.6 Neut % (Auto) 84.4 H Lymph % (Auto) 9.0 L Clark % (Auto) 6.0 Eos % (Auto) 0.2 Baso % (Auto) 0.4 Neut # 9.2 H Lymph # 1.0 Clark # 0.7 Eos # 0.0 Baso # 0.0 Neutrophils % (Manual) 87 H Band Neutrophils % 2 Lymphocytes % (Manual) 6 L Monocytes % (Manual) 5 Platelet Estimate Normal Puncture Site pCO2 pO2 HCO3 ABG pH ABG Total CO2 ABG O2 Saturation ABG Base Excess Dudley Test ABG Potassium A-a O2 Difference Respiratory Index Sodium 140 Chloride 93 L Glucose Lactate Vent Mode FiO2 Inspiratory BiPAP Expiratory BiPAP Potassium 4.2 Carbon Dioxide 27 Anion Gap 24 H BUN 34 H Creatinine 6.3 H Est GFR ( Amer) 10 Est GFR (Non-Af Amer) 9 POC Glucose (mg/dL) 111 H Random Glucose 126 H Hemoglobin A1c Calcium 9.3 Phosphorus Magnesium Total Bilirubin AST ALT Alkaline Phosphatase Troponin I NT-Pro-B Natriuret Pep Total Protein Albumin Globulin Albumin/Globulin Ratio Triglycerides Cholesterol LDL Cholesterol Direct HDL Cholesterol Arterial Blood Potassium 02/05/17 10:58 WBC RBC Hgb Hct MCV MCH MCHC RDW Plt Count MPV Neut % (Auto) Lymph % (Auto) Clark % (Auto) Eos % (Auto) Baso % (Auto) Neut # Lymph # Clark # Eos # Baso # Neutrophils % (Manual) Band Neutrophils % Lymphocytes % (Manual) Monocytes % (Manual) Platelet Estimate Puncture Site pCO2 pO2 HCO3 ABG pH ABG Total CO2 ABG O2 Saturation ABG Base Excess Dudley Test ABG Potassium A-a O2 Difference Respiratory Index Sodium Chloride Glucose Lactate Vent Mode FiO2 Inspiratory BiPAP Expiratory BiPAP Potassium Carbon Dioxide Anion Gap BUN Creatinine Est GFR ( Amer) Est GFR (Non-Af Amer) POC Glucose (mg/dL) 129 H Random Glucose Hemoglobin A1c Calcium Phosphorus Magnesium Total Bilirubin AST ALT Alkaline Phosphatase Troponin I NT-Pro-B Natriuret Pep Total Protein Albumin Globulin Albumin/Globulin Ratio Triglycerides Cholesterol LDL Cholesterol Direct HDL Cholesterol Arterial Blood Potassium Assessment & Plan (1) ACS (acute coronary syndrome) Assessment and Plan: Admit to Telemetry; new onset of LBBB Cardiology: Dr. 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, help appreciated Received dialysis this morning, 02/05/17 Calcium acetate Sensipar 30mg PO daily Status: Chronic (3) Diabetes mellitus Assessment and Plan: HgbA1c: 5.4 Lipid panel: TG 295, Cholesterol 148, LDL 78, HDL 23 Accuchecks QACHS Lantus 10 units SC daily ISS SC Status: Chronic (4) Abdominal pain Status: Acute (5) SOB (shortness of breath) Assessment and Plan: CXR: f/u Former smoker--> tobacco cessation provided Status: Acute (6) Prophylactic measure Assessment and Plan: Pepcid 20mg PO daily Monitor weight daily Monitor intake and output General Scrap Worker referral Renal Diet Status: Acute
--- NOTE | 2017-02-05 11:56 | CP.CCUPN ---
CCU Subjective - Physician Review Subjective (Free Text): Patient was seen and examined at bedside in the morning. He reports having no complaints except feeling tired and not having a chance to sleep. He reports having a normal bowel movement today. Patient denies having chest pain, palpitations, shortness of breath, nausea, vomiting, abdominal pain, diarrhea, constipation, dizziness, changes in vision, dysuria, and headaches. 02/05/17 19:51 CCU Objective - Vital Signs / Intake & Output Vital Signs (Last 4 hours): Vital Signs Temp Pulse Resp BP Pulse Ox 02/05/17 11:10 82 16 94 L 02/05/17 11:00 82 19 97 02/05/17 10:50 81 12 99 02/05/17 10:40 84 18 99 02/05/17 10:34 87 27 H 125/61 93 L 02/05/17 10:30 89 26 H 99 02/05/17 10:20 85 11 L 95 02/05/17 10:10 86 10 L 100 02/05/17 10:00 89 19 98 02/05/17 09:50 88 22 94 L 02/05/17 09:40 91 H 13 94 L 02/05/17 09:35 91 H 17 119/65 92 L 02/05/17 09:30 90 13 92 L 02/05/17 09:20 89 22 94 L 02/05/17 09:10 92 H 18 95 02/05/17 09:00 91 H 19 95 02/05/17 08:53 94 H 27 H 122/58 L 96 02/05/17 08:50 97 H 32 H 97 02/05/17 08:40 93 H 16 100 02/05/17 08:30 93 H 16 100 02/05/17 08:20 90 14 98 02/05/17 08:10 89 18 100 02/05/17 08:00 97.5 F L 89 10 L 84 L 02/05/17 07:59 87 15 112/55 L 100 Intake and Output (Last 8hrs): Intake & Output 02/04/17 02/05/17 02/05/17 22:59 06:59 14:59 Intake Total 90 435 Output Total 20 0 Balance 70 435 Weight 250 lb 7.122 oz Intake: Intake, IV Amount 0 0 Left Antecubital 0 0 Oral 90 435 Output: Urine 0 0 Urine, Voided 0 0 Stool 20 0 Other: # Bowel Movements 1 - Physical Exam Head: Positive for: Atraumatic, Normocephalic Extroacular Muscles: Positive for: EOMI Mouth: Positive for: Moist Mucous Membranes Respiratory/Chest: Positive for: Clear to Auscultation. Negative for: Wheezes, Rhonchi Cardiovascular: Positive for: Regular Rate and Rhythm, Normal S1, S2. Negative for: Murmurs Abdomen: Positive for: Normal Bowel Sounds. Negative for: Tenderness, Rebound, Guarding Upper Extremity: Positive for: Normal Inspection (R arm AV fistula). Negative for: Edema Lower Extremity: Positive for: Edema. Negative for: Tenderness Skin: Positive for: Warm, Dry, Normal Color. Negative for: Diaphoretic Psychiatric: Positive for: Alert, Oriented x 3 - Medications Active Medications: Active Medications Generic Name Dose Route Start Last Admin Trade Name Freq PRN Reason Stop Dose Admin Aspirin 81 mg 02/05/17 10:00 02/05/17 10:01 Ecotrin PO 81 mg DAILY JOEL Administration Calcium Acetate 667 mg 02/05/17 11:45 02/05/17 11:53 Phoslo PO 667 mg AC JOEL Administration Cinacalcet 30 mg 02/05/17 10:00 02/05/17 10:01 Sensipar PO 30 mg DAILY JOEL Administration Famotidine 20 mg 02/05/17 10:00 02/05/17 10:01 Pepcid PO 20 mg DAILY JOEL Administration Heparin Sodium (Porcine) 5,000 units 02/05/17 14:00 Heparin SC Q8 JOEL Insulin Glargine 10 unit 02/05/17 22:00 Lantus SC HS JOEL Insulin Human Regular 0 unit 02/05/17 07:30 02/05/17 11:30 Novolin R SC Not Given ACHS [facility] Protocol Metoprolol Succinate 25 mg 02/05/17 10:00 02/05/17 10:01 Toprol Xl PO 25 mg DAILY JOEL Administration Rosuvastatin Calcium 10 mg 02/05/17 22:00 Crestor PO HS JOEL Ticagrelor 90 mg 02/05/17 10:00 02/05/17 10:01 Brilinta PO 90 mg BID JOEL Administration - Patient Studies Lab Studies: Lab Studies 02/05/17 02/05/17 02/05/17 Range/Units 10:58 07:48 07:15 WBC (4.8-10.8) K/uL RBC (4.40-5.90) Mil/uL Hgb (12.0-18.0) g/dL Hct (35.0-51.0) % MCV (80.0-94.0) fL MCH (27.0-31.0) pg MCHC (33.0-37.0) g/dL RDW (11.5-14.5) % Plt Count (130-400) K/uL MPV (7.2-11.7) fL Neut % (Auto) (50.0-75.0) % Lymph % (Auto) (20.0-40.0) % Loving % (Auto) (0.0-10.0) % Eos % (Auto) (0.0-4.0) % Baso % (Auto) (0.0-2.0) % Neut # (1.8-7.0) K/uL Lymph # (1.0-4.3) K/uL Loving # (0.0-0.8) K/uL Eos # (0.0-0.7) K/uL Baso # (0.0-0.2) K/uL Neutrophils % (Manual) (50-75) % Band Neutrophils % (0-2) % Lymphocytes % (Manual) (20-40) % Monocytes % (Manual) (0-10) % Platelet Estimate (NORMAL) Puncture Site pCO2 (35-45) mm/Hg pO2 (80-100) mm/Hg HCO3 (21-28) mmol/L ABG pH (7.35-7.45) ABG Total CO2 (22-28) mmol/L ABG O2 Saturation (95-98) % ABG Base Excess (-2.0-3.0) mmol/L Dudley Test ABG Potassium (3.6-5.2) mmol/L A-a O2 Difference mm/Hg Respiratory Index Sodium 140 (132-148) mmol/l Chloride 93 L (98-107) mmol/L Glucose (75-110) mg/dl Lactate (0.7-2.1) mmol/L Vent Mode FiO2 % Inspiratory BiPAP Expiratory BiPAP Potassium 4.2 (3.6-5.2) mmol/L Carbon Dioxide 27 (22-30) mmol/L Anion Gap 24 H (10-20) BUN 34 H (9-20) mg/dL Creatinine 6.3 H (0.8-1.5) MG/DL Est GFR ( Amer) 10 Est GFR (Non-Af Amer) 9 POC Glucose (mg/dL) 129 H 111 H (65-110) mg/dL Random Glucose 126 H (75-110) mg/dL Hemoglobin A1c (4.2-6.5) % Calcium 9.3 (8.6-10.4) mg/dl Phosphorus (2.5-4.5) mg/dL Magnesium (1.6-2.3) mg/dL Total Bilirubin (0.2-1.3) mg/dL AST (17-59) U/L ALT (21-72) U/L Alkaline Phosphatase (38-126) U/L Troponin I (0.00-0.120) ng/mL NT-Pro-B Natriuret Pep (0-900) pg/mL Total Protein (6.3-8.3) g/dL Albumin (3.5-5.0) g/dL Globulin (2.2-3.9) gm/dL Albumin/Globulin Ratio (1.0-2.1) Triglycerides (0-149) mg/dL Cholesterol (0-199) mg/dL LDL Cholesterol Direct (0-129) mg/dL HDL Cholesterol (30-70) mg/dL Arterial Blood Potassium (3.6-5.2) mmol/L 02/05/17 02/05/17 02/05/17 Range/Units 05:25 05:25 05:25 WBC 10.9 H (4.8-10.8) K/uL RBC 4.29 L (4.40-5.90) Mil/uL Hgb 12.7 (12.0-18.0) g/dL Hct 38.2 (35.0-51.0) % MCV 89.0 (80.0-94.0) fL MCH 29.6 (27.0-31.0) pg MCHC 33.3 (33.0-37.0) g/dL RDW 15.7 H (11.5-14.5) % Plt Count 200 (130-400) K/uL MPV 8.6 (7.2-11.7) fL Neut % (Auto) 84.4 H (50.0-75.0) % Lymph % (Auto) 9.0 L (20.0-40.0) % Loving % (Auto) 6.0 (0.0-10.0) % Eos % (Auto) 0.2 (0.0-4.0) % Baso % (Auto) 0.4 (0.0-2.0) % Neut # 9.2 H (1.8-7.0) K/uL Lymph # 1.0 (1.0-4.3) K/uL Loving # 0.7 (0.0-0.8) K/uL Eos # 0.0 (0.0-0.7) K/uL Baso # 0.0 (0.0-0.2) K/uL Neutrophils % (Manual) 87 H (50-75) % Band Neutrophils % 2 (0-2) % Lymphocytes % (Manual) 6 L (20-40) % Monocytes % (Manual) 5 (0-10) % Platelet Estimate Normal (NORMAL) Puncture Site pCO2 (35-45) mm/Hg pO2 (80-100) mm/Hg HCO3 (21-28) mmol/L ABG pH (7.35-7.45) ABG Total CO2 (22-28) mmol/L ABG O2 Saturation (95-98) % ABG Base Excess (-2.0-3.0) mmol/L Dudley Test ABG Potassium (3.6-5.2) mmol/L A-a O2 Difference mm/Hg Respiratory Index Sodium 138 (132-148) mmol/l Chloride 92 L (98-107) mmol/L Glucose (75-110) mg/dl Lactate (0.7-2.1) mmol/L Vent Mode FiO2 % Inspiratory BiPAP Expiratory BiPAP Potassium 6.5 H* (3.6-5.2) mmol/L Carbon Dioxide 27 (22-30) mmol/L Anion Gap 26 H (10-20) BUN 81 H (9-20) mg/dL Creatinine 11.6 H* (0.8-1.5) MG/DL Est GFR ( Amer) 5 Est GFR (Non-Af Amer) 4 POC Glucose (mg/dL) (65-110) mg/dL Random Glucose 131 H (75-110) mg/dL Hemoglobin A1c 5.4 (4.2-6.5) % Calcium 9.4 (8.6-10.4) mg/dl Phosphorus 7.0 H (2.5-4.5) mg/dL Magnesium 2.1 (1.6-2.3) mg/dL Total Bilirubin 0.5 (0.2-1.3) mg/dL AST 117 H (17-59) U/L ALT 29 (21-72) U/L Alkaline Phosphatase 89 (38-126) U/L Troponin I 54.9000 H* (0.00-0.120) ng/mL NT-Pro-B Natriuret Pep 15647 H (0-900) pg/mL Total Protein 7.0 (6.3-8.3) g/dL Albumin 3.6 (3.5-5.0) g/dL Globulin 3.4 (2.2-3.9) gm/dL Albumin/Globulin Ratio 1.1 (1.0-2.1) Triglycerides 295 H (0-149) mg/dL Cholesterol 148 (0-199) mg/dL LDL Cholesterol Direct 78 (0-129) mg/dL HDL Cholesterol 23 L (30-70) mg/dL Arterial Blood Potassium (3.6-5.2) mmol/L 02/05/17 Range/Units 02:45 WBC (4.8-10.8) K/uL RBC (4.40-5.90) Mil/uL Hgb (12.0-18.0) g/dL Hct (35.0-51.0) % MCV (80.0-94.0) fL MCH (27.0-31.0) pg MCHC (33.0-37.0) g/dL RDW (11.5-14.5) % Plt Count (130-400) K/uL MPV (7.2-11.7) fL Neut % (Auto) (50.0-75.0) % Lymph % (Auto) (20.0-40.0) % Loving % (Auto) (0.0-10.0) % Eos % (Auto) (0.0-4.0) % Baso % (Auto) (0.0-2.0) % Neut # (1.8-7.0) K/uL Lymph # (1.0-4.3) K/uL Loving # (0.0-0.8) K/uL Eos # (0.0-0.7) K/uL Baso # (0.0-0.2) K/uL Neutrophils % (Manual) (50-75) % Band Neutrophils % (0-2) % Lymphocytes % (Manual) (20-40) % Monocytes % (Manual) (0-10) % Platelet Estimate (NORMAL) Puncture Site Lr pCO2 47 H (35-45) mm/Hg pO2 140 H (80-100) mm/Hg HCO3 24.8 (21-28) mmol/L ABG pH 7.35 (7.35-7.45) ABG Total CO2 27.3 (22-28) mmol/L ABG O2 Saturation 98.1 H (95-98) % ABG Base Excess -0.2 (-2.0-3.0) mmol/L Dudley Test Pos ABG Potassium 5.5 H (3.6-5.2) mmol/L A-a O2 Difference 514.0 mm/Hg Respiratory Index 3.7 Sodium 137.0 (132-148) mmol/l Chloride 101.0 (98-107) mmol/L Glucose 157 H (75-110) mg/dl Lactate 1.1 (0.7-2.1) mmol/L Vent Mode Bipap FiO2 100.0 % Inspiratory BiPAP 15 Expiratory BiPAP 5 Potassium (3.6-5.2) mmol/L Carbon Dioxide (22-30) mmol/L Anion Gap (10-20) BUN (9-20) mg/dL Creatinine (0.8-1.5) MG/DL Est GFR ( Amer) Est GFR (Non-Af Amer) POC Glucose (mg/dL) (65-110) mg/dL Random Glucose (75-110) mg/dL Hemoglobin A1c (4.2-6.5) % Calcium (8.6-10.4) mg/dl Phosphorus (2.5-4.5) mg/dL Magnesium (1.6-2.3) mg/dL Total Bilirubin (0.2-1.3) mg/dL AST (17-59) U/L ALT (21-72) U/L Alkaline Phosphatase (38-126) U/L Troponin I (0.00-0.120) ng/mL NT-Pro-B Natriuret Pep (0-900) pg/mL Total Protein (6.3-8.3) g/dL Albumin (3.5-5.0) g/dL Globulin (2.2-3.9) gm/dL Albumin/Globulin Ratio (1.0-2.1) Triglycerides (0-149) mg/dL Cholesterol (0-199) mg/dL LDL Cholesterol Direct (0-129) mg/dL HDL Cholesterol (30-70) mg/dL Arterial Blood Potassium 5.5 H (3.6-5.2) mmol/L Laboratory Results - last 24 hr 02/05/17 02/05/17 02/05/17 02:45 05:25 05:25 WBC RBC Hgb Hct MCV MCH MCHC RDW Plt Count MPV Neut % (Auto) Lymph % (Auto) Loving % (Auto) Eos % (Auto) Baso % (Auto) Neut # Lymph # Loving # Eos # Baso # Neutrophils % (Manual) Band Neutrophils % Lymphocytes % (Manual) Monocytes % (Manual) Platelet Estimate Puncture Site Lr pCO2 47 H pO2 140 H HCO3 24.8 ABG pH 7.35 ABG Total CO2 27.3 ABG O2 Saturation 98.1 H ABG Base Excess -0.2 Dudley Test Pos ABG Potassium 5.5 H A-a O2 Difference 514.0 Respiratory Index 3.7 Sodium 137.0 138 Chloride 101.0 92 L Glucose 157 H Lactate 1.1 Vent Mode Bipap FiO2 100.0 Inspiratory BiPAP 15 Expiratory BiPAP 5 Potassium 6.5 H* Carbon Dioxide 27 Anion Gap 26 H BUN 81 H Creatinine 11.6 H* Est GFR ( Amer) 5 Est GFR (Non-Af Amer) 4 POC Glucose (mg/dL) Random Glucose 131 H Hemoglobin A1c 5.4 Calcium 9.4 Phosphorus 7.0 H Magnesium 2.1 Total Bilirubin 0.5 AST 117 H ALT 29 Alkaline Phosphatase 89 Troponin I 54.9000 H* NT-Pro-B Natriuret Pep 29594 H Total Protein 7.0 Albumin 3.6 Globulin 3.4 Albumin/Globulin Ratio 1.1 Triglycerides 295 H Cholesterol 148 LDL Cholesterol Direct 78 HDL Cholesterol 23 L Arterial Blood Potassium 5.5 H 07/02/05/17 02/05/17 05:25 07:15 07:48 WBC 10.9 H RBC 4.29 L Hgb 12.7 Hct 38.2 MCV 89.0 MCH 29.6 MCHC 33.3 RDW 15.7 H Plt Count 200 MPV 8.6 Neut % (Auto) 84.4 H Lymph % (Auto) 9.0 L Loving % (Auto) 6.0 Eos % (Auto) 0.2 Baso % (Auto) 0.4 Neut # 9.2 H Lymph # 1.0 Loving # 0.7 Eos # 0.0 Baso # 0.0 Neutrophils % (Manual) 87 H Band Neutrophils % 2 Lymphocytes % (Manual) 6 L Monocytes % (Manual) 5 Platelet Estimate Normal Puncture Site pCO2 pO2 HCO3 ABG pH ABG Total CO2 ABG O2 Saturation ABG Base Excess Dudley Test ABG Potassium A-a O2 Difference Respiratory Index Sodium 140 Chloride 93 L Glucose Lactate Vent Mode FiO2 Inspiratory BiPAP Expiratory BiPAP Potassium 4.2 Carbon Dioxide 27 Anion Gap 24 H BUN 34 H Creatinine 6.3 H Est GFR ( Amer) 10 Est GFR (Non-Af Amer) 9 POC Glucose (mg/dL) 111 H Random Glucose 126 H Hemoglobin A1c Calcium 9.3 Phosphorus Magnesium Total Bilirubin AST ALT Alkaline Phosphatase Troponin I NT-Pro-B Natriuret Pep Total Protein Albumin Globulin Albumin/Globulin Ratio Triglycerides Cholesterol LDL Cholesterol Direct HDL Cholesterol Arterial Blood Potassium 02/05/17 10:58 WBC RBC Hgb Hct MCV MCH MCHC RDW Plt Count MPV Neut % (Auto) Lymph % (Auto) Loving % (Auto) Eos % (Auto) Baso % (Auto) Neut # Lymph # Loving # Eos # Baso # Neutrophils % (Manual) Band Neutrophils % Lymphocytes % (Manual) Monocytes % (Manual) Platelet Estimate Puncture Site pCO2 pO2 HCO3 ABG pH ABG Total CO2 ABG O2 Saturation ABG Base Excess Dudley Test ABG Potassium A-a O2 Difference Respiratory Index Sodium Chloride Glucose Lactate Vent Mode FiO2 Inspiratory BiPAP Expiratory BiPAP Potassium Carbon Dioxide Anion Gap BUN Creatinine Est GFR ( Amer) Est GFR (Non-Af Amer) POC Glucose (mg/dL) 129 H Random Glucose Hemoglobin A1c Calcium Phosphorus Magnesium Total Bilirubin AST ALT Alkaline Phosphatase Troponin I NT-Pro-B Natriuret Pep Total Protein Albumin Globulin Albumin/Globulin Ratio Triglycerides Cholesterol LDL Cholesterol Direct HDL Cholesterol Arterial Blood Potassium EKG/Cardiology Studies: Cardiology / EKG Studies 02/05/17 01:15 ELECTROCARDIOGRAM Routine Comment: Mode Of Transportation: PORTABLE Reason For Exam: ND Fingerstick Blood Sugar Results: 129 Review of Systems - Constitutional Constitutional: absent: Fever, Sweats - EENT Eyes: absent: Change in Vision, Other Visual Disturbances Ears: absent: Dizziness - Cardiovascular Cardiovascular: absent: Chest Pain, Dyspnea, Palpitations - Respiratory Respiratory: absent: Cough, Dyspnea - Gastrointestinal Gastrointestinal: absent: Abdominal Pain, Constipation, Diarrhea, Nausea, Vomiting - Genitourinary Genitourinary: absent: Dysuria, Urinary Frequency - Neurological Neurological: absent: Dizziness, Headaches - Endocrine Endocrine: Fatigue. absent: Palpitations Critical Care Progress Note - Nutrition Nutrition: Nutrition Category Date Time Status Renal Diet [DIET] Diets 02/05/17 Breakfast Active Assessment/Plan (1) ACS (acute coronary syndrome) Current Visit: No Status: Acute (2) ESRD (end stage renal disease) Current Visit: No Status: Chronic Comment: - renal consult with Dr Ferrer - HD MWF - cont Renagel - on hemodialysis for end-stage renal disease tolerating well. Abdomen no pain resolving diarrhea resolving responded to the treatment (3) Diabetes mellitus Current Visit: No Status: Chronic Comment: - Type II controlled - ACHS with low regular insulin coverage -now that diarrhea resolved- cont home meds Lab=ntus and Humalog (4) Abdominal pain Current Visit: Yes Status: Acute (5) SOB (shortness of breath) Current Visit: No Status: Acute (6) Prophylactic measure Current Visit: Yes Status: Acute - Assessment and Plan (Free Text) Assessment: Neuro: - Alert and oriented x3 Pulm: - Chest xray: prominent diffuse increased interstitial lung marking B/L; confluent consolidative opacity throughout left lung and within right mid to lower lung; right axillary vascular stent in place; calcification at aortic knob ; cardiomegaly. CV: - Cardiology: Dr. Montes De Oca, help appreciated - At [facility] for SOB- CODE Heart for new LBBB--> transferred to [facility] - Cardiac cath showed LAD 90% occluded - Troponin: 54.900 (02/05) - Echo: f/u - Brillinta 90mg PO BID started 02/05 - ASA 81mg PO daily - Toprol Xl 25mg PO daily - Crestor 10mg PO daily - PATRICIA inhibitor held secondary to ESRD Endo: - Diabetes- Accucheck - Monitor blood glucose - A1c 5.4 - Lipid panel: TG 295, Cholesterol 148, LDL 78, HDL 23 - Lantus 10 units SC daily & ISS SC GI: - Lipid panel: TG 295, Cholesterol 148, LDL 78, HDL 23 - PATRICIA inhibitor held secondary to ESRD Heme: - Monitor H/H Renal: - ESRD, on dialysis MWF - Received dialysis today, 02/05/17 - [employer] Driver: Dr. Nguyen, help appreciated - Monitor BUN/Cr - Calcium acetate & Sensipar 30mg PO daily Prophylaxis: - DVT: Heparin 5,000 units SC Q8 - GI: Pepcid 20mg PO daily
[2017-02-05] MEDS ORDERED: Aluminum Hydroxide/Magnesium Hydroxide Susp (30 mL) PO ONE (13:14)
[2017-02-05] MEDS: (Lantus) Insulin Glargine, Recombinant SC SCH (21:37)
[2017-02-06 06:27] LABS: BASO # 0.1 K/uL (0.0-0.2); BASO % 0.9 % (0.0-2.0); EOS # 0.2 K/uL (0.0-0.7); HEMOGLOBIN 11.4 g/dL (12.0-18.0); LYMPH % 10.9 % (20.0-40.0); MEAN CELL VOLUME 88.7 fL (80.0-94.0); MEAN CORPUSCULAR HEMOGLOBIN 29.2 pg (27.0-31.0); MEAN CORPUSCULAR HGB CONC 32.9 g/dL (33.0-37.0); MEAN PLATELET VOLUME 8.4 fL (7.2-11.7); MONO # 0.7 K/uL (0.0-0.8); MONO % 7.3 % (0.0-10.0); NEUT # 7.5 K/uL (1.8-7.0); NEUT % 78.9 % (50.0-75.0); RBC 3.9 Mil/uL (4.40-5.90); RED CELL DISTRIBUTION WIDTH 15.8 % (11.5-14.5); WHITE BLOOD COUNT 9.5 K/uL (4.8-10.8)
[2017-02-06 06:55] LABS: ALB/GLOB RATIO 1.5 (1.0-2.1); ALBUMIN 3.7 g/dL (3.5-5.0); CALCIUM 8.8 mg/dl (8.6-10.4)
[2017-02-06] MEDS: (Novolin R) Insulin Human Regular 100 units/ml vial SC SCH ×2 (08:03→12:37)
--- NOTE | 2017-02-06 09:38 | RAD ---
Chest x-ray single frontal view History: Infiltrate. Comparison: 02/05/2017 Findings: Persistent prominent consolidative changes seen within the bilateral lung rodríguez most prominent at the right upper and lower lung zones as well as the left hilar region and left lung base. Small to moderate left pleural effusion. Prominent diffuse increased interstitial lung markings. Cardiomegaly. Calcification at the aortic knob. Degenerative changes the spine and shoulders. Impression: Persistent prominent consolidative changes seen within the bilateral lung rodríguez most prominent at the right upper and lower lung zones as well as the left hilar region and left lung base. Small to moderate left pleural effusion. Prominent diffuse increased interstitial lung markings. Cardiomegaly.
[2017-02-06] MEDS: Metoprolol Succinate 25 mg XL Tab PO SCH (09:59)
[2017-02-06] MEDS: Moxifloxacin IV 400mg/250ml NS 400 MG/250 ML BAG IVPB SCH (10:31)
--- NOTE | 2017-02-06 12:39 | CARD ---
APPROVED REPORT EKG Measurement Heart [id number] <Conclusion> Sinus tachycardia Nonspecific intraventricular block Nonspecific T wave abnormality Abnormal ECG
--- NOTE | 2017-02-06 13:23 | CP.PCM.PN ---
Subjective - Date & Time of Evaluation Date of Evaluation: 02/06/17 Time of Evaluation: 13:22 - Subjective Subjective: seen and examined s/p cardiac cath, lad stent hd yesterday unremarkable pt feels well denies any v/n/d/cp/sob/palp/dizziness Objective - Vital Signs/Intake and Output Vital Signs (last 24 hours): Temp Pulse Resp BP Pulse Ox 97 F L 75 13 94/43 L 98 02/05/17 20:00 02/06/17 12:28 02/06/17 11:20 02/06/17 10:34 02/06/17 12:28 Intake and Output: 02/06/17 02/06/17 06:59 18:59 Intake Total 150 400 Balance 150 400 - Medications Medications: Current Medications Aspirin (Ecotrin) 81 mg PO DAILY [facility] Last Admin: 02/06/17 09:52 Dose: 81 mg Calcium Acetate (Phoslo) 667 mg PO AC [facility] Last Admin: 02/06/17 12:04 Dose: 667 mg Cinacalcet (Sensipar) 30 mg PO DAILY [facility] Last Admin: 02/06/17 09:53 Dose: 30 mg Famotidine (Pepcid) 20 mg PO DAILY [facility] Last Admin: 02/06/17 09:53 Dose: 20 mg Heparin Sodium (Porcine) (Heparin) 5,000 units SC Q8 [facility] Last Admin: 02/06/17 06:27 Dose: 5,000 units Moxifloxacin HCl (Avelox Iv 400mg/250ml Ns) 400 mg in 250 mls @ 167 mls/hr IVPB Q24H [facility] Last Admin: 02/06/17 10:31 Dose: 167 mls/hr Insulin Glargine (Lantus) 10 unit SC HS [facility] Last Admin: 02/05/17 21:37 Dose: Not Given Insulin Human Regular (Novolin R) 0 unit SC [facility] PRN Reason: Protocol Last Admin: 02/06/17 12:37 Dose: Not Given Metoprolol Succinate (Toprol Xl) 25 mg PO DAILY [facility] Last Admin: 02/06/17 09:59 Dose: 25 mg Rosuvastatin Calcium (Crestor) 10 mg PO HS [facility] Last Admin: 02/05/17 21:43 Dose: 10 mg Ticagrelor (Brilinta) 90 mg PO BID [facility] Last Admin: 02/06/17 09:52 Dose: 90 mg - Labs Labs: 02/06/17 06:22 02/06/17 06:22 - Constitutional Appears: Non-toxic, No Acute Distress - Head Exam Head Exam: NORMAL INSPECTION - Eye Exam Eye Exam: Normal appearance - ENT Exam ENT Exam: Mucous Membranes Moist, Normal Exam - Neck Exam Neck Exam: Normal Inspection - Cardiovascular Exam Cardiovascular Exam: REGULAR RHYTHM, RRR - GI/Abdominal Exam GI & Abdominal Exam: Distended, Soft - Extremities Exam Extremities Exam: Normal Inspection, Pedal Edema - Neurological Exam Neurological Exam: Alert, Oriented x3 Assessment and Plan (1) Acute myocardial infarction involving left anterior descending (LAD) coronary artery Status: Acute (2) CAD (coronary artery disease) Status: Acute (3) Status post cardiac catheterization Status: Acute (4) Type 2 diabetes mellitus with diabetic nephropathy Status: Acute (5) NSTEMI (non-ST elevated myocardial infarction) Status: Acute (6) ESRD (end stage renal disease) Status: Chronic - Assessment and Plan (Free Text) Assessment: hd tomorrow ok to start low dose acei from renal standpoint if bp tolerates
--- NOTE | 2017-02-06 15:32 | US ---
HISTORY: Right upper quadrant pain COMPARISON: None. TECHNIQUE: Grayscale imaging was performed. FINDINGS: LIVER: Measures 19.2 cm. There is diffuse increased echogenicity of the liver parenchyma. No mass. No intrahepatic bile duct dilatation. GALLBLADDER: Not visualized. COMMON BILE DUCT: Measures 3.7 mm. No stones. No dilatation. PANCREAS: Unremarkable as visualized. No mass. No ductal dilatation. RIGHT KIDNEY: Measures 12.9cm. There is diffuse increased echogenicity. No calculus, mass, or hydronephrosis. There is a 2.2 cm cyst in the lower pole. There are additional small in the kidney. LEFT KIDNEY: Measures 13.6cm. There is diffuse increased echogenicity. No calculus, mass, or hydronephrosis.There is a 3.1 cm cyst in the lower pole. SPLEEN: Normal in size and contour. No mass. AORTA: No aneurysmal dilatation. IVC: Unremarkable. OTHER FINDINGS: None. IMPRESSION: 1. Mild hepatomegaly and hepatic steatosis. 2. Medical renal disease. Multiple cysts in the kidneys as described above. 3. The gallbladder is not visualized.
--- NOTE | 2017-02-06 16:00 | CP.CCUPN ---
<Sultana Sauceda - Last Filed: 02/06/17 15:57> CCU Subjective - Physician Review Subjective (Free Text): Patient was seen and examined at bedside in the morning. He reports having no complaints except feeling weak. Patient denies having chest pain, palpitations, shortness of breath, nausea, vomiting, abdominal pain, diarrhea, constipation, dizziness, changes in vision, dysuria, and headaches. Patient is stable for transfer from ICU to telemetry. 02/06/17 15:57 CCU Objective - Vital Signs / Intake & Output Vital Signs (Last 4 hours): Vital Signs Pulse Resp BP Pulse Ox 02/06/17 15:00 69 15 02/06/17 14:50 66 15 02/06/17 14:40 68 20 02/06/17 14:34 65 18 112/56 L 02/06/17 14:30 65 16 98 02/06/17 14:20 66 16 02/06/17 14:10 69 14 02/06/17 14:00 66 26 H 88 L 02/06/17 13:50 65 16 99 02/06/17 13:40 66 12 02/06/17 13:34 66 22 101/49 L 02/06/17 13:30 65 13 02/06/17 13:20 66 12 100 02/06/17 13:10 66 13 93 L 02/06/17 13:00 66 21 100 02/06/17 12:50 65 16 100 02/06/17 12:40 64 21 100 02/06/17 12:35 65 20 95/46 L 02/06/17 12:30 66 21 02/06/17 12:28 75 98 02/06/17 12:20 68 11 L 02/06/17 12:10 67 17 02/06/17 12:00 66 19 Intake and Output (Last 8hrs): Intake & Output 02/06/17 02/06/17 02/06/17 06:59 14:59 22:59 Intake Total 50 600 0 Balance 50 600 0 Weight 256 lb 1.28 oz Intake: Oral 50 600 0 Other: # Bowel Movements 0 0 - Physical Exam Head: Positive for: Atraumatic, Normocephalic Extroacular Muscles: Positive for: EOMI Mouth: Positive for: Moist Mucous Membranes Respiratory/Chest: Positive for: Rhonchi. Negative for: Wheezes, Tachypneic Cardiovascular: Positive for: Regular Rate and Rhythm, Normal S1, S2. Negative for: Murmurs Abdomen: Positive for: Normal Bowel Sounds. Negative for: Tenderness, Rebound, Guarding Upper Extremity: Positive for: Normal Inspection (R arm AV fistula). Negative for: Edema Lower Extremity: Positive for: Edema. Negative for: Tenderness Skin: Positive for: Warm, Dry, Normal Color. Negative for: Diaphoretic Psychiatric: Positive for: Alert, Oriented x 3 - Medications Active Medications: Active Medications Generic Name Dose Route Start Last Admin Trade Name Freq PRN Reason Stop Dose Admin Aspirin 81 mg 02/05/17 10:00 02/06/17 09:52 Ecotrin PO 81 mg DAILY JOEL Administration Calcium Acetate 667 mg 02/05/17 11:45 02/06/17 15:48 Phoslo PO 667 mg AC JOEL Administration Cinacalcet 30 mg 02/05/17 10:00 02/06/17 09:53 Sensipar PO 30 mg DAILY JOEL Administration Famotidine 20 mg 02/05/17 10:00 02/06/17 09:53 Pepcid PO 20 mg DAILY JOEL Administration Heparin Sodium (Porcine) 5,000 units 02/05/17 14:00 02/06/17 13:31 Heparin SC 5,000 units Q8 JOEL Administration Moxifloxacin HCl 400 mg in 250 mls @ 167 mls/hr 02/06/17 10:00 02/06/17 10:31 Avelox Iv 400mg/250ml Ns IVPB 167 mls/hr Q24H JOEL Administration Insulin Glargine 10 unit 02/05/17 22:00 02/05/17 21:37 Lantus SC Not Given HS JOEL Insulin Human Regular 0 unit 02/05/17 07:30 02/06/17 12:37 Novolin R SC Not Given ACHS [facility] Protocol Metoprolol Succinate 25 mg 02/05/17 10:00 02/06/17 09:59 Toprol Xl PO 25 mg DAILY JOEL Administration Rosuvastatin Calcium 10 mg 02/05/17 22:00 02/05/17 21:43 Crestor PO 10 mg HS JOEL Administration Ticagrelor 90 mg 02/05/17 10:00 02/06/17 09:52 Brilinta PO 90 mg BID JOEL Administration - Patient Studies Lab Studies: Microbiology Studies 02/05/17 00:18 MRSA Culture (Admit) - Final Nose MRSA NOT DETECTED Lab Studies 02/06/17 02/06/17 02/06/17 Range/Units 11:03 07:28 06:22 WBC (4.8-10.8) K/uL RBC (4.40-5.90) Mil/uL Hgb (12.0-18.0) g/dL Hct (35.0-51.0) % MCV (80.0-94.0) fL MCH (27.0-31.0) pg MCHC (33.0-37.0) g/dL RDW (11.5-14.5) % Plt Count (130-400) K/uL MPV (7.2-11.7) fL Neut % (Auto) (50.0-75.0) % Lymph % (Auto) (20.0-40.0) % [place] % (Auto) (0.0-10.0) % Eos % (Auto) (0.0-4.0) % Baso % (Auto) (0.0-2.0) % Neut # (1.8-7.0) K/uL Lymph # (1.0-4.3) K/uL [place] # (0.0-0.8) K/uL Eos # (0.0-0.7) K/uL Baso # (0.0-0.2) K/uL Sodium 135 (132-148) mmol/L Potassium 5.3 H (3.6-5.2) mmol/L Chloride 92 L (98-107) mmol/L Carbon Dioxide 27 (22-30) mmol/L Anion Gap 21 H (10-20) BUN 62 H (9-20) mg/dL Creatinine 10.2 H* D (0.8-1.5) MG/DL Est GFR ( Amer) 6 Est GFR (Non-Af Amer) 5 POC Glucose (mg/dL) 178 H 126 H (65-110) mg/dL Random Glucose 107 (75-110) mg/dL Calcium 8.8 (8.6-10.4) mg/dl Phosphorus 4.7 H (2.5-4.5) mg/dL Magnesium 2.0 (1.6-2.3) mg/dL Total Bilirubin 0.3 (0.2-1.3) mg/dL AST 72 H D (17-59) U/L ALT 30 (21-72) U/L Alkaline Phosphatase 66 (38-126) U/L Total Protein 6.1 L (6.3-8.3) g/dL Albumin 3.7 (3.5-5.0) g/dL Globulin 2.4 (2.2-3.9) gm/dL Albumin/Globulin Ratio 1.5 (1.0-2.1) Mycoplasma pneumon IgM (NEGATIVE) 02/06/17 02/05/17 02/05/17 Range/Units 06:22 21:35 16:15 WBC 9.5 (4.8-10.8) K/uL RBC 3.90 L (4.40-5.90) Mil/uL Hgb 11.4 L (12.0-18.0) g/dL Hct 34.6 L (35.0-51.0) % MCV 88.7 (80.0-94.0) fL MCH 29.2 (27.0-31.0) pg MCHC 32.9 L (33.0-37.0) g/dL RDW 15.8 H (11.5-14.5) % Plt Count 165 (130-400) K/uL MPV 8.4 (7.2-11.7) fL Neut % (Auto) 78.9 H (50.0-75.0) % Lymph % (Auto) 10.9 L (20.0-40.0) % [place] % (Auto) 7.3 (0.0-10.0) % Eos % (Auto) 2.0 (0.0-4.0) % Baso % (Auto) 0.9 (0.0-2.0) % Neut # 7.5 H (1.8-7.0) K/uL Lymph # 1.0 (1.0-4.3) K/uL Tr[place]ble # 0.7 (0.0-0.8) K/uL Eos # 0.2 (0.0-0.7) K/uL Baso # 0.1 (0.0-0.2) K/uL Sodium (132-148) mmol/L Potassium (3.6-5.2) mmol/L Chloride (98-107) mmol/L Carbon Dioxide (22-30) mmol/L Anion Gap (10-20) BUN (9-20) mg/dL Creatinine (0.8-1.5) MG/DL Est GFR ( Amer) Est GFR (Non-Af Amer) POC Glucose (mg/dL) 191 H 125 H (65-110) mg/dL Random Glucose (75-110) mg/dL Calcium (8.6-10.4) mg/dl Phosphorus (2.5-4.5) mg/dL Magnesium (1.6-2.3) mg/dL Total Bilirubin (0.2-1.3) mg/dL AST (17-59) U/L ALT (21-72) U/L Alkaline Phosphatase (38-126) U/L Total Protein (6.3-8.3) g/dL Albumin (3.5-5.0) g/dL Globulin (2.2-3.9) gm/dL Albumin/Globulin Ratio (1.0-2.1) Mycoplasma pneumon IgM (NEGATIVE) 02/05/17 Range/Units 15:01 WBC (4.8-10.8) K/uL RBC (4.40-5.90) Mil/uL Hgb (12.0-18.0) g/dL Hct (35.0-51.0) % MCV (80.0-94.0) fL MCH (27.0-31.0) pg MCHC (33.0-37.0) g/dL RDW (11.5-14.5) % Plt Count (130-400) K/uL MPV (7.2-11.7) fL Neut % (Auto) (50.0-75.0) % Lymph % (Auto) (20.0-40.0) % [place] % (Auto) (0.0-10.0) % Eos % (Auto) (0.0-4.0) % Baso % (Auto) (0.0-2.0) % Neut # (1.8-7.0) K/uL Lymph # (1.0-4.3) K/uL [place] # (0.0-0.8) K/uL Eos # (0.0-0.7) K/uL Baso # (0.0-0.2) K/uL Sodium (132-148) mmol/L Potassium (3.6-5.2) mmol/L Chloride (98-107) mmol/L Carbon Dioxide (22-30) mmol/L Anion Gap (10-20) BUN (9-20) mg/dL Creatinine (0.8-1.5) MG/DL Est GFR ( Amer) Est GFR (Non-Af Amer) POC Glucose (mg/dL) (65-110) mg/dL Random Glucose (75-110) mg/dL Calcium (8.6-10.4) mg/dl Phosphorus (2.5-4.5) mg/dL Magnesium (1.6-2.3) mg/dL Total Bilirubin (0.2-1.3) mg/dL AST (17-59) U/L ALT (21-72) U/L Alkaline Phosphatase (38-126) U/L Total Protein (6.3-8.3) g/dL Albumin (3.5-5.0) g/dL Globulin (2.2-3.9) gm/dL Albumin/Globulin Ratio (1.0-2.1) Mycoplasma pneumon IgM Negative (NEGATIVE) Laboratory Results - last 24 hr 02/05/17 02/05/17 02/05/17 15:01 16:15 21:35 WBC RBC Hgb Hct MCV MCH MCHC RDW Plt Count MPV Neut % (Auto) Lymph % (Auto) [place] % (Auto) Eos % (Auto) Baso % (Auto) Neut # Lymph # Trimble # Eos # Baso # Sodium Potassium Chloride Carbon Dioxide Anion Gap BUN Creatinine Est GFR ( Amer) Est GFR (Non-Af Amer) POC Glucose (mg/dL) 125 H 191 H Random Glucose Calcium Phosphorus Magnesium Total Bilirubin AST ALT Alkaline Phosphatase Total Protein Albumin Globulin Albumin/Globulin Ratio Mycoplasma pneumon IgM Negative 02/06/17 02/06/17 02/06/17 06:22 06:22 07:28 WBC 9.5 RBC 3.90 L Hgb 11.4 L Hct 34.6 L MCV 88.7 MCH 29.2 MCHC 32.9 L RDW 15.8 H Plt Count 165 MPV 8.4 Neut % (Auto) 78.9 H Lymph % (Auto) 10.9 L [place] % (Auto) 7.3 Eos % (Auto) 2.0 Baso % (Auto) 0.9 Neut # 7.5 H Lymph # 1.0 Trimble # 0.7 Eos # 0.2 Baso # 0.1 Sodium 135 Potassium 5.3 H Chloride 92 L Carbon Dioxide 27 Anion Gap 21 H BUN 62 H Creatinine 10.2 H* D Est GFR ( Amer) 6 Est GFR (Non-Af Amer) 5 POC Glucose (mg/dL) 126 H Random Glucose 107 Calcium 8.8 Phosphorus 4.7 H Magnesium 2.0 Total Bilirubin 0.3 AST 72 H D ALT 30 Alkaline Phosphatase 66 Total Protein 6.1 L Albumin 3.7 Globulin 2.4 Albumin/Globulin Ratio 1.5 Mycoplasma pneumon IgM 02/06/17 11:03 WBC RBC Hgb Hct MCV MCH MCHC RDW Plt Count MPV Neut % (Auto) Lymph % (Auto) [place] % (Auto) Eos % (Auto) Baso % (Auto) Neut # Lymph # Trimble # Eos # Baso # Sodium Potassium Chloride Carbon Dioxide Anion Gap BUN Creatinine Est GFR ( Amer) Est GFR (Non-Af Amer) POC Glucose (mg/dL) 178 H Random Glucose Calcium Phosphorus Magnesium Total Bilirubin AST ALT Alkaline Phosphatase Total Protein Albumin Globulin Albumin/Globulin Ratio Mycoplasma pneumon IgM Fingerstick Blood Sugar Results: 178 Review of Systems - Constitutional Constitutional: Weakness. absent: Fever - EENT Ears: absent: Dizziness - Cardiovascular Cardiovascular: absent: Chest Pain, Dyspnea, Edema, Palpitations - Respiratory Respiratory: absent: Cough, Dyspnea - Gastrointestinal Gastrointestinal: absent: Abdominal Pain, Constipation, Diarrhea, Nausea, Vomiting - Genitourinary Genitourinary: absent: Dysuria - Neurological Neurological: absent: Dizziness, Headaches - Endocrine Endocrine: absent: Palpitations Critical Care Progress Note - Nutrition Nutrition: Nutrition Category Date Time Status NPO Diet [DIET] Diets 02/06/17 Lunch Active Assessment/Plan (1) ACS (acute coronary syndrome) Current Visit: No Status: Acute (2) ESRD (end stage renal disease) Current Visit: No Status: Chronic Comment: - renal consult with Dr Ferrer - HD MWF - cont Renagel - on hemodialysis for end-stage renal disease tolerating well. Abdomen no pain resolving diarrhea resolving responded to the treatment (3) Diabetes mellitus Current Visit: No Status: Chronic Comment: - Type II controlled - ACHS with low regular insulin coverage -now that diarrhea resolved- cont home meds Lab=ntus and Humalog (4) Abdominal pain Current Visit: Yes Status: Acute (5) SOB (shortness of breath) Current Visit: No Status: Acute (6) Prophylactic measure Current Visit: Yes Status: Acute - Assessment and Plan (Free Text) Assessment: Patient is stable for transfer from ICU to telemetry. Neuro: - Alert and oriented x3 Pulm: - Chest xray: prominent diffuse increased interstitial lung marking B/L; confluent consolidative opacity throughout left lung and within right mid to lower lung; right axillary vascular stent in place; calcification at aortic knob ; cardiomegaly. CV: - Cardiology: Dr. Montes De Oca, help appreciated - At [facility] for SOB- CODE Heart for new LBBB--> transferred to [facility] - Cardiac cath showed LAD 90% occluded - Troponin: 54.900 (02/05) - Echo: EF 45%; elevated diastolic filling pressures - Brillinta 90mg PO BID started 02/05 - ASA 81mg PO daily - Toprol Xl 25mg PO daily - Crestor 10mg PO daily - PATRICIA inhibitor held secondary to ESRD Endo: - Diabetes- Accucheck - Monitor blood glucose - A1c 5.4 - Lipid panel: TG 295, Cholesterol 148, LDL 78, HDL 23 - Lantus 10 units SC daily & ISS SC GI: - Lipid panel: TG 295, Cholesterol 148, LDL 78, HDL 23 - PATRICIA inhibitor held secondary to ESRD Heme: - Monitor H/H Renal: - ESRD, on dialysis MWF - Received dialysis on 02/05/17 - Cold Type Artist: Dr. Nguyen, help appreciated - Monitor BUN/Cr - Calcium acetate & Sensipar 30mg PO daily Prophylaxis: - DVT: Heparin 5,000 units SC Q8 - GI: Pepcid 20mg PO daily <Vitaliy Prieto - Last Filed: 02/06/17 18:24> CCU Objective - Vital Signs / Intake & Output Vital Signs (Last 4 hours): Vital Signs Pulse Resp BP Pulse Ox 02/06/17 16:51 72 13 102/43 L 02/06/17 16:50 71 14 02/06/17 16:40 70 18 100 02/06/17 16:30 70 20 02/06/17 16:20 69 10 L 91 L 02/06/17 16:10 70 15 02/06/17 16:00 73 18 02/06/17 15:50 68 11 L 02/06/17 15:40 70 16 02/06/17 15:30 74 12 02/06/17 15:20 70 15 02/06/17 15:10 71 16 100 02/06/17 15:00 69 15 02/06/17 14:50 66 15 02/06/17 14:40 68 20 02/06/17 14:34 65 18 112/56 L 02/06/17 14:30 65 16 98 Intake and Output (Last 8hrs): Intake & Output 02/06/17 02/06/17 02/06/17 06:59 14:59 22:59 Intake Total 50 600 200 Balance 50 600 200 Weight 256 lb 1.28 oz Intake: Oral 50 600 200 Other: # Bowel Movements 0 0 - Medications Active Medications: Active Medications Generic Name Dose Route Start Last Admin Trade Name Freq PRN Reason Stop Dose Admin Aspirin 81 mg 02/05/17 10:00 02/06/17 09:52 Ecotrin PO 81 mg DAILY JOEL Administration Calcium Acetate 667 mg 02/05/17 11:45 02/06/17 15:48 Phoslo PO 667 mg AC JOEL Administration Cinacalcet 30 mg 02/05/17 10:00 02/06/17 09:53 Sensipar PO 30 mg DAILY JOEL Administration Famotidine 20 mg 02/05/17 10:00 02/06/17 09:53 Pepcid PO 20 mg DAILY JOEL Administration Heparin Sodium (Porcine) 5,000 units 02/05/17 14:00 02/06/17 13:31 Heparin SC 5,000 units Q8 JOEL Administration Moxifloxacin HCl 400 mg in 250 mls @ 167 mls/hr 02/06/17 10:00 02/06/17 10:31 Avelox Iv 400mg/250ml Ns IVPB 167 mls/hr Q24H JOEL Administration Insulin Glargine 10 unit 02/05/17 22:00 02/05/17 21:37 Lantus SC Not Given HS JOEL Insulin Human Regular 0 unit 02/05/17 07:30 02/06/17 12:37 Novolin R SC Not Given ACHS [facility] Protocol Metoprolol Succinate 25 mg 02/05/17 10:00 02/06/17 09:59 Toprol Xl PO 25 mg DAILY JOEL Administration Rosuvastatin Calcium 10 mg 02/05/17 22:00 02/05/17 21:43 Crestor PO 10 mg HS JOEL Administration Ticagrelor 90 mg 02/05/17 10:00 02/06/17 17:51 Brilinta PO 90 mg BID JOEL Administration - Patient Studies Lab Studies: Microbiology Studies 02/05/17 00:18 MRSA Culture (Admit) - Final Nose MRSA NOT DETECTED Lab Studies 02/06/17 02/06/17 02/06/17 Range/Units 16:17 11:03 07:28 WBC (4.8-10.8) K/uL RBC (4.40-5.90) Mil/uL Hgb (12.0-18.0) g/dL Hct (35.0-51.0) % MCV (80.0-94.0) fL MCH (27.0-31.0) pg MCHC (33.0-37.0) g/dL RDW (11.5-14.5) % Plt Count (130-400) K/uL MPV (7.2-11.7) fL Neut % (Auto) (50.0-75.0) % Lymph % (Auto) (20.0-40.0) % [place] % (Auto) (0.0-10.0) % Eos % (Auto) (0.0-4.0) % Baso % (Auto) (0.0-2.0) % Neut # (1.8-7.0) K/uL Lymph # (1.0-4.3) K/uL [place]ble # (0.0-0.8) K/uL Eos # (0.0-0.7) K/uL Baso # (0.0-0.2) K/uL Sodium (132-148) mmol/L Potassium (3.6-5.2) mmol/L Chloride (98-107) mmol/L Carbon Dioxide (22-30) mmol/L Anion Gap (10-20) BUN (9-20) mg/dL Creatinine (0.8-1.5) MG/DL Est GFR ( Amer) Est GFR (Non-Af Amer) POC Glucose (mg/dL) 130 H 178 H 126 H (65-110) mg/dL Random Glucose (75-110) mg/dL Calcium (8.6-10.4) mg/dl Phosphorus (2.5-4.5) mg/dL Magnesium (1.6-2.3) mg/dL Total Bilirubin (0.2-1.3) mg/dL AST (17-59) U/L ALT (21-72) U/L Alkaline Phosphatase (38-126) U/L Total Protein (6.3-8.3) g/dL Albumin (3.5-5.0) g/dL Globulin (2.2-3.9) gm/dL Albumin/Globulin Ratio (1.0-2.1) Mycoplasma pneumon IgM (NEGATIVE) 02/06/17 02/06/17 02/05/17 Range/Units 06:22 06:22 21:35 WBC 9.5 (4.8-10.8) K/uL RBC 3.90 L (4.40-5.90) Mil/uL Hgb 11.4 L (12.0-18.0) g/dL Hct 34.6 L (35.0-51.0) % MCV 88.7 (80.0-94.0) fL MCH 29.2 (27.0-31.0) pg MCHC 32.9 L (33.0-37.0) g/dL RDW 15.8 H (11.5-14.5) % Plt Count 165 (130-400) K/uL MPV 8.4 (7.2-11.7) fL Neut % (Auto) 78.9 H (50.0-75.0) % Lymph % (Auto) 10.9 L (20.0-40.0) % [place] % (Auto) 7.3 (0.0-10.0) % Eos % (Auto) 2.0 (0.0-4.0) % Baso % (Auto) 0.9 (0.0-2.0) % Neut # 7.5 H (1.8-7.0) K/uL Lymph # 1.0 (1.0-4.3) K/uL Tr[place]ble # 0.7 (0.0-0.8) K/uL Eos # 0.2 (0.0-0.7) K/uL Baso # 0.1 (0.0-0.2) K/uL Sodium 135 (132-148) mmol/L Potassium 5.3 H (3.6-5.2) mmol/L Chloride 92 L (98-107) mmol/L Carbon Dioxide 27 (22-30) mmol/L Anion Gap 21 H (10-20) BUN 62 H (9-20) mg/dL Creatinine 10.2 H* D (0.8-1.5) MG/DL Est GFR ( Amer) 6 Est GFR (Non-Af Amer) 5 POC Glucose (mg/dL) 191 H (65-110) mg/dL Random Glucose 107 (75-110) mg/dL Calcium 8.8 (8.6-10.4) mg/dl Phosphorus 4.7 H (2.5-4.5) mg/dL Magnesium 2.0 (1.6-2.3) mg/dL Total Bilirubin 0.3 (0.2-1.3) mg/dL AST 72 H D (17-59) U/L ALT 30 (21-72) U/L Alkaline Phosphatase 66 (38-126) U/L Total Protein 6.1 L (6.3-8.3) g/dL Albumin 3.7 (3.5-5.0) g/dL Globulin 2.4 (2.2-3.9) gm/dL Albumin/Globulin Ratio 1.5 (1.0-2.1) Mycoplasma pneumon IgM (NEGATIVE) 02/05/17 Range/Units 15:01 WBC (4.8-10.8) K/uL RBC (4.40-5.90) Mil/uL Hgb (12.0-18.0) g/dL Hct (35.0-51.0) % MCV (80.0-94.0) fL MCH (27.0-31.0) pg MCHC (33.0-37.0) g/dL RDW (11.5-14.5) % Plt Count (130-400) K/uL MPV (7.2-11.7) fL Neut % (Auto) (50.0-75.0) % Lymph % (Auto) (20.0-40.0) % [place] % (Auto) (0.0-10.0) % Eos % (Auto) (0.0-4.0) % Baso % (Auto) (0.0-2.0) % Neut # (1.8-7.0) K/uL Lymph # (1.0-4.3) K/uL Trimble # (0.0-0.8) K/uL Eos # (0.0-0.7) K/uL Baso # (0.0-0.2) K/uL Sodium (132-148) mmol/L Potassium (3.6-5.2) mmol/L Chloride (98-107) mmol/L Carbon Dioxide (22-30) mmol/L Anion Gap (10-20) BUN (9-20) mg/dL Creatinine (0.8-1.5) MG/DL Est GFR ( Amer) Est GFR (Non-Af Amer) POC Glucose (mg/dL) (65-110) mg/dL Random Glucose (75-110) mg/dL Calcium (8.6-10.4) mg/dl Phosphorus (2.5-4.5) mg/dL Magnesium (1.6-2.3) mg/dL Total Bilirubin (0.2-1.3) mg/dL AST (17-59) U/L ALT (21-72) U/L Alkaline Phosphatase (38-126) U/L Total Protein (6.3-8.3) g/dL Albumin (3.5-5.0) g/dL Globulin (2.2-3.9) gm/dL Albumin/Globulin Ratio (1.0-2.1) Mycoplasma pneumon IgM Negative (NEGATIVE) Laboratory Results - last 24 hr 02/05/17 02/05/17 02/06/17 15:01 21:35 06:22 WBC 9.5 RBC 3.90 L Hgb 11.4 L Hct 34.6 L MCV 88.7 MCH 29.2 MCHC 32.9 L RDW 15.8 H Plt Count 165 MPV 8.4 Neut % (Auto) 78.9 H Lymph % (Auto) 10.9 L [place] % (Auto) 7.3 Eos % (Auto) 2.0 Baso % (Auto) 0.9 Neut # 7.5 H Lymph # 1.0 Trimble # 0.7 Eos # 0.2 Baso # 0.1 Sodium Potassium Chloride Carbon Dioxide Anion Gap BUN Creatinine Est GFR ( Amer) Est GFR (Non-Af Amer) POC Glucose (mg/dL) 191 H Random Glucose Calcium Phosphorus Magnesium Total Bilirubin AST ALT Alkaline Phosphatase Total Protein Albumin Globulin Albumin/Globulin Ratio Mycoplasma pneumon IgM Negative 02/06/17 02/06/17 02/06/17 06:22 07:28 11:03 WBC RBC Hgb Hct MCV MCH MCHC RDW Plt Count MPV Neut % (Auto) Lymph % (Auto) [place] % (Auto) Eos % (Auto) Baso % (Auto) Neut # Lymph # Trimble # Eos # Baso # Sodium 135 Potassium 5.3 H Chloride 92 L Carbon Dioxide 27 Anion Gap 21 H BUN 62 H Creatinine 10.2 H* D Est GFR ( Amer) 6 Est GFR (Non-Af Amer) 5 POC Glucose (mg/dL) 126 H 178 H Random Glucose 107 Calcium 8.8 Phosphorus 4.7 H Magnesium 2.0 Total Bilirubin 0.3 AST 72 H D ALT 30 Alkaline Phosphatase 66 Total Protein 6.1 L Albumin 3.7 Globulin 2.4 Albumin/Globulin Ratio 1.5 Mycoplasma pneumon IgM 02/06/17 16:17 WBC RBC Hgb Hct MCV MCH MCHC RDW Plt Count MPV Neut % (Auto) Lymph % (Auto) [place] % (Auto) Eos % (Auto) Baso % (Auto) Neut # Lymph # [place] # Eos # Baso # Sodium Potassium Chloride Carbon Dioxide Anion Gap BUN Creatinine Est GFR ( Amer) Est GFR (Non-Af Amer) POC Glucose (mg/dL) 130 H Random Glucose Calcium Phosphorus Magnesium Total Bilirubin AST ALT Alkaline Phosphatase Total Protein Albumin Globulin Albumin/Globulin Ratio Mycoplasma pneumon IgM Critical Care Progress Note - Nutrition Nutrition: Nutrition Category Date Time Status Renal Diet [DIET] Diets 02/06/17 Dinner Active Attending/Attestation - Attestation I have personally seen and examined this patient.: Yes I have fully participated in the care of the patient.: Yes I have reviewed all pertinent clinical information: Yes Notes (Text): 02/06/17 18:24 Patient seen and examined in the intensive care unit. Case discussed with house staff in the morning. Stable for transfer to floor
--- NOTE | 2017-02-06 17:56 | CP.PCM.PN ---
Subjective - Date & Time of Evaluation Date of Evaluation: 02/06/17 Time of Evaluation: 17:50 - Subjective Subjective: Medical Attending Note Follow-up: LBBB, Acute Coronary Syndrome, s/p PCI LAD, Shortness of breathe, and Abdominal Pain Patient seen, examined, and case discussed with ICU. Patient reports he is feeling better. Denies fever, denies chills, denies chest pain, denies palpitations, denies nausea, denies vomitting, denies diarrhea, denies constipation, reports right upper quadrant pain, denies BRBPR. Discussed with ICU, patient transferred to the floor today. Objective - Vital Signs/Intake and Output Vital Signs (last 24 hours): Temp Pulse Resp BP Pulse Ox 97 F L 72 13 102/43 L 100 02/05/17 20:00 02/06/17 16:51 02/06/17 16:51 02/06/17 16:51 02/06/17 16:40 Intake and Output: 02/06/17 02/06/17 06:59 18:59 Intake Total 150 800 Balance 150 800 - Medications Medications: Current Medications Aspirin (Ecotrin) 81 mg PO DAILY [facility] Last Admin: 02/06/17 09:52 Dose: 81 mg Calcium Acetate (Phoslo) 667 mg PO AC [facility] Last Admin: 02/06/17 15:48 Dose: 667 mg Cinacalcet (Sensipar) 30 mg PO DAILY [facility] Last Admin: 02/06/17 09:53 Dose: 30 mg Famotidine (Pepcid) 20 mg PO DAILY [facility] Last Admin: 02/06/17 09:53 Dose: 20 mg Heparin Sodium (Porcine) (Heparin) 5,000 units SC Q8 [facility] Last Admin: 02/06/17 13:31 Dose: 5,000 units Moxifloxacin HCl (Avelox Iv 400mg/250ml Ns) 400 mg in 250 mls @ 167 mls/hr IVPB Q24H [facility] Last Admin: 02/06/17 10:31 Dose: 167 mls/hr Insulin Glargine (Lantus) 10 unit SC HS [facility] Last Admin: 02/05/17 21:37 Dose: Not Given Insulin Human Regular (Novolin R) 0 unit SC ACHS [facility] PRN Reason: Protocol Last Admin: 02/06/17 12:37 Dose: Not Given Metoprolol Succinate (Toprol Xl) 25 mg PO DAILY [facility] Last Admin: 02/06/17 09:59 Dose: 25 mg Rosuvastatin Calcium (Crestor) 10 mg PO HS [facility] Last Admin: 02/05/17 21:43 Dose: 10 mg Ticagrelor (Brilinta) 90 mg PO BID [facility] Last Admin: 02/06/17 09:52 Dose: 90 mg - Labs Labs: 02/06/17 06:22 02/06/17 06:22 - Constitutional Appears: Non-toxic, No Acute Distress - Head Exam Head Exam: NORMAL INSPECTION - Eye Exam Eye Exam: EOMI - ENT Exam ENT Exam: Mucous Membranes Moist - Respiratory Exam Respiratory Exam: NORMAL BREATHING PATTERN. absent: Rales, Rhonchi, Respiratory Distress - Cardiovascular Exam Cardiovascular Exam: RRR, +S1, +S2 - GI/Abdominal Exam GI & Abdominal Exam: Soft, Normal Bowel Sounds. absent: Distended, Firm, Guarding, Rigid, Tenderness, Rebound - Extremities Exam Extremities Exam: Normal Capillary Refill, Pedal Edema (trace). absent: Tenderness - Back Exam Back Exam: absent: CVA tenderness (L), CVA tenderness (R), paraspinal tenderness , rash noted - Neurological Exam Neurological Exam: Alert, Awake, Oriented x3 - Psychiatric Exam Psychiatric exam: Normal Affect, Normal Mood - Skin Skin Exam: Dry, Intact, Normal Color, Warm Assessment and Plan - Assessment and Plan (Free Text) Assessment: (1) ACS (acute coronary syndrome) New LBBB Coronary Artery Disease Assessment and Plan: Admit to ICU Patient was code heart; transferred from [place] for shortness of breathe, LBBB , and positive troponin Cardiology: Dr. Montes De Oca, help appreciated Cardiology (code heart): Dr. Fuentes, help appreciated Transferred out from ICU on 02/06/17 Risk factors: DM, HTN, CAD, Prior ND, ESRD ASA 81mg PO daily Brillinta 90mg PO BID started today, 02/05/17 Toprol XL 25mg PO daily Crestor 10mg PO HS HgbA1c: 5.4 Lipid panel: TG 295, Cholesterol 148, LDL 78, HDL 23 Echo: f/u Prior Echo (12/26/16): left ventricle is mildly dilated. borderline concentric left ventricular hypertrophy. systolic function moderately to severely impaired. EF; 35-40%, apical hypokinesis, No left ventricle thrombus noted on this study PATRICIA inhibitor held secondary to ESRD Status: Acute (2) ESRD (end stage renal disease) Assessment and Plan: Pharmaceutical Physician: Dr. Nguyen, help appreciated Received dialysis morning, 02/05/17 Calcium acetate Sensipar 30mg PO daily Status: Chronic (3) Diabetes mellitus Assessment and Plan: HgbA1c: 5.4 Lipid panel: TG 295, Cholesterol 148, LDL 78, HDL 23 Accuchecks QACHS Lantus 10 units SC daily ISS SC Status: Chronic (4) Abdominal pain Status: Acute Abdominal US: hepatomegaly and hepatic steatosis, medical renal disease. multiple cysts in the kidneys as described above. gallbladder is not visualized Lipase: 116 Status: Chronic (5) SOB (shortness of breath) Assessment and Plan: CXR (02/05/17): prominent diffuse increased interstitial lung markings bilaterally; Superimposed confluent consolidate opacity throughout the left lung and within the right mid to lower lung zone. Cardiomegaly CXR (02/06/17): persistent prominent consolidate changes within the bilateral lung fielnds most prominent at the right upper and lower lung zones as well as left hilar region and left lung base Mycoplasma IgM: negative Former smoker--> tobacco cessation provided; quit 15 years ago Echocardiogram completed-->awaiting report Prior hospitalization: systolic/diastolic CHF and pneumonia Start Avelox 400mg IV q daily to cover for pneumonia Status: improving (6) Prophylactic measure Assessment and Plan: Pepcid 20mg PO daily heparin 5000 units subq 8hours Monitor weight daily Monitor intake and output Management Accounts Manager referral Renal Diet Status: Acute
--- NOTE | 2017-02-06 19:41 | CP.PCM.PN ---
Subjective - Date & Time of Evaluation Date of Evaluation: 02/06/17 Time of Evaluation: 19:30 - Subjective Subjective: patient feels well. sitting in the chair. Objective - Vital Signs/Intake and Output Vital Signs (last 24 hours): Temp Pulse Resp BP Pulse Ox 97 F L 72 13 102/43 L 100 02/05/17 20:00 02/06/17 16:51 02/06/17 16:51 02/06/17 16:51 02/06/17 16:40 Intake and Output: 02/06/17 02/07/17 18:59 06:59 Intake Total 800 Balance 800 - Medications Medications: Current Medications Aspirin (Ecotrin) 81 mg PO DAILY [facility] Last Admin: 02/06/17 09:52 Dose: 81 mg Calcium Acetate (Phoslo) 667 mg PO AC [facility] Last Admin: 02/06/17 15:48 Dose: 667 mg Cinacalcet (Sensipar) 30 mg PO DAILY [facility] Last Admin: 02/06/17 09:53 Dose: 30 mg Famotidine (Pepcid) 20 mg PO DAILY [facility] Last Admin: 02/06/17 09:53 Dose: 20 mg Heparin Sodium (Porcine) (Heparin) 5,000 units SC Q8 [facility] Last Admin: 02/06/17 13:31 Dose: 5,000 units Moxifloxacin HCl (Avelox Iv 400mg/250ml Ns) 400 mg in 250 mls @ 167 mls/hr IVPB Q24H [facility] Last Admin: 02/06/17 10:31 Dose: 167 mls/hr Insulin Glargine (Lantus) 10 unit SC HS [facility] Last Admin: 02/05/17 21:37 Dose: Not Given Insulin Human Regular (Novolin R) 0 unit SC ACHS [facility] PRN Reason: Protocol Last Admin: 02/06/17 12:37 Dose: Not Given Metoprolol Succinate (Toprol Xl) 25 mg PO DAILY [facility] Last Admin: 02/06/17 09:59 Dose: 25 mg Rosuvastatin Calcium (Crestor) 10 mg PO HS [facility] Last Admin: 02/05/17 21:43 Dose: 10 mg Ticagrelor (Brilinta) 90 mg PO BID [facility] Last Admin: 02/06/17 17:51 Dose: 90 mg - Labs Labs: 02/06/17 06:22 02/06/17 06:22 - Constitutional Appears: Non-toxic - Head Exam Head Exam: NORMAL INSPECTION - Eye Exam Eye Exam: Normal appearance - ENT Exam ENT Exam: Mucous Membranes Moist - Neck Exam Neck Exam: Full ROM - Respiratory Exam Respiratory Exam: Decreased Breath Sounds - Cardiovascular Exam Cardiovascular Exam: REGULAR RHYTHM - GI/Abdominal Exam GI & Abdominal Exam: Normal Bowel Sounds - Rectal Exam Rectal Exam: Deferred - Extremities Exam Extremities Exam: Pedal Edema - Back Exam Back Exam: NORMAL INSPECTION - Neurological Exam Neurological Exam: Alert - Psychiatric Exam Psychiatric exam: Normal Affect - Skin Skin Exam: Normal Color Assessment and Plan (1) Acute myocardial infarction involving left anterior descending (LAD) coronary artery Assessment & Plan: continue ASA, Brilinta. I reviewed the echocardiogram. There is a wall motion abnormality of the anterior wall consistent with the patient's previous myocardial infarction. continue medical therapy Status: Acute (2) Diabetes mellitus Status: Chronic (3) ESRD (end stage renal disease) Status: Chronic (4) HTN (hypertension) Assessment & Plan: blood pressure control Status: Chronic
[2017-02-06] MEDS: (Lantus) Insulin Glargine, Recombinant SC SCH (21:24)
[2017-02-07] MEDS: Moxifloxacin IV 400mg/250ml NS 400 MG/250 ML BAG IVPB SCH (09:55)
--- NOTE | 2017-02-07 10:40 | RAD ---
HISTORY: pneumonia vs CHF COMPARISON: 02/06/2017. FINDINGS: There is stable appearance of a right subclavian stent. LUNGS: There is persistent severe pulmonary venous congestion and interstitial pulmonary edema. There is confluent airspace disease in both lower lobes. . PLEURA: There are persistent small pleural effusions, larger on the left. No pneumothorax. CARDIOVASCULAR: There is persistent mild cardiomegaly. Atherosclerotic aortic arch calcifications are present. OSSEOUS STRUCTURES: No significant abnormalities. VISUALIZED UPPER ABDOMEN: Normal. OTHER FINDINGS: None. IMPRESSION: 1. Bibasilar airspace disease may represent atelectasis or pneumonia. 2. Persistent moderate congestive heart failure.
[2017-02-07 14:50] LABS: BASO % 0.8 % (0.0-2.0); EOS # 0.2 K/uL (0.0-0.7); EOS % 2.7 % (0.0-4.0); HEMOGLOBIN 9.6 g/dL (12.0-18.0); LYMPH # 0.7 K/uL (1.0-4.3); LYMPH % 12.1 % (20.0-40.0); MEAN CELL VOLUME 88.9 fL (80.0-94.0); MEAN CORPUSCULAR HEMOGLOBIN 29.3 pg (27.0-31.0); MEAN PLATELET VOLUME 8.3 fL (7.2-11.7); MONO # 0.5 K/uL (0.0-0.8); MONO % 9.2 % (0.0-10.0); NEUT # 4.1 K/uL (1.8-7.0); NEUT % 75.2 % (50.0-75.0); RBC 3.29 Mil/uL (4.40-5.90); RED CELL DISTRIBUTION WIDTH 15.3 % (11.5-14.5); WHITE BLOOD COUNT 5.5 K/uL (4.8-10.8)
--- NOTE | 2017-02-07 14:54 | CP.PCM.PN ---
Subjective - Date & Time of Evaluation Date of Evaluation: 02/07/17 Time of Evaluation: 14:52 - Subjective Subjective: no acute events HD today no fever no chest pain no sob good appetite no urinary issues no edema no rash no joint pain no headache Objective - Vital Signs/Intake and Output Vital Signs (last 24 hours): Temp Pulse Resp BP Pulse Ox 97.7 F 63 18 110/46 L 96 02/07/17 09:00 02/07/17 11:00 02/07/17 11:00 02/07/17 11:00 02/07/17 11:00 Intake and Output: 02/07/17 02/07/17 06:59 18:59 Intake Total 500 Balance 500 - Medications Medications: Current Medications Aspirin (Ecotrin) 81 mg PO DAILY [facility] Last Admin: 02/07/17 09:34 Dose: 81 mg Calcium Acetate (Phoslo) 667 mg PO AC [facility] Last Admin: 02/07/17 11:33 Dose: 667 mg Cinacalcet (Sensipar) 30 mg PO DAILY [facility] Last Admin: 02/07/17 09:34 Dose: 30 mg Famotidine (Pepcid) 20 mg PO DAILY [facility] Last Admin: 02/07/17 09:34 Dose: 20 mg Heparin Sodium (Porcine) (Heparin) 5,000 units SC Q8 [facility] Last Admin: 02/07/17 06:19 Dose: 5,000 units Moxifloxacin HCl (Avelox Iv 400mg/250ml Ns) 400 mg in 250 mls @ 167 mls/hr IVPB Q24H [facility] Last Admin: 02/07/17 09:55 Dose: 167 mls/hr Insulin Glargine (Lantus) 10 unit SC HS [facility] Last Admin: 02/06/17 21:24 Dose: Not Given Insulin Human Regular (Novolin R) [address] [facility] PRN Reason: Protocol Last Admin: 02/06/17 12:37 Dose: Not Given Metoprolol Succinate (Toprol Xl) 25 mg PO DAILY [facility] Rosuvastatin Calcium (Crestor) 10 mg PO HS [facility] Last Admin: 02/06/17 21:40 Dose: 10 mg Ticagrelor (Brilinta) 90 mg PO BID [facility] Last Admin: 02/07/17 11:25 Dose: Not Given - Labs Labs: 02/06/17 06:22 02/06/17 06:22 - Constitutional Appears: Non-toxic, No Acute Distress - Eye Exam Eye Exam: EOMI - ENT Exam ENT Exam: Mucous Membranes Moist - Neck Exam Neck Exam: Full ROM. absent: Lymphadenopathy - Respiratory Exam Respiratory Exam: Clear to Ausculation Bilateral. absent: Accessory Muscle Use - Cardiovascular Exam Cardiovascular Exam: REGULAR RHYTHM. absent: Rubs - GI/Abdominal Exam GI & Abdominal Exam: Soft, Normal Bowel Sounds. absent: Tenderness - Extremities Exam Extremities Exam: Full ROM, Pedal Edema - Neurological Exam Neurological Exam: Alert, Oriented x3 Assessment and Plan - Assessment and Plan (Free Text) Assessment: esrd s/p cor stent acute coronary syndrome HD today f/u cardiology recommendations
[2017-02-07 15:02] LABS: INR 1.1; PROTHROMBIN TIME 12.3 SECONDS (9.7-12.2)
[2017-02-07 15:06] LABS: ALBUMIN 3.3 g/dL (3.5-5.0)
[2017-02-07 15:09] LABS: ALB/GLOB RATIO 1.1 (1.0-2.1)
[2017-02-07 15:10] LABS: CALCIUM 8.3 mg/dl (8.6-10.4)
--- NOTE | 2017-02-07 17:49 | CP.PCM.PN ---
Subjective - Date & Time of Evaluation Date of Evaluation: 02/07/17 Time of Evaluation: 15:00 - Subjective Subjective: Medical Attending Note Follow-up: STEMI, Pneumonia, Anemia, Epistaxis, History of Diabetes. Patient seen and examined today. Patient had an episode of epistaxis this morning about 5-10ml to cover 1 4X4. Resident went to evaluate as well, and compressed at the nares. Bleeding stopped. Patient re-evaluated in the afternoon. No further episodes reported. Discussed with cardiology, d/c dvt ppx , continue Brilinta in light of recent PCI. ENT consulted will evaluate the patient in AM. CBC and INR drawn-->patient is poor access; drawn during dialysis. Hgb drop from 11-->9.6. Patient permits 1 unit of PRBC transfusion. Risks and benefits of PRBC transfusion described by both me and the resident, witnessed by the nurse. Consent in the chart. type and cross 1 unit of PRBC to be given during dialysis. patient denies fever, denies chills, denies chest pain , denies shortness of breathe, denies abdominal pain, denies nausea, denies vomitting, reports had good bowel movement yesterday, denies numbness and denies tingling. Spoke with patient with daughterEmely at bedside, who he permits me his medical information with. Patient understands he has had an CA, and his ultimately goal is to go home. Objective - Vital Signs/Intake and Output Vital Signs (last 24 hours): Temp Pulse Resp BP Pulse Ox 97.5 F L 96 H 16 123/43 L 96 02/07/17 17:31 02/07/17 17:31 02/07/17 17:31 02/07/17 17:31 02/07/17 15:00 Intake and Output: 02/07/17 02/07/17 06:59 18:59 Intake Total 530 Balance 530 - Medications Medications: Current Medications Aspirin (Ecotrin) 81 mg PO DAILY [facility] Last Admin: 02/07/17 09:34 Dose: 81 mg Calcium Acetate (Phoslo) 667 mg PO AC [facility] Last Admin: 02/07/17 11:33 Dose: 667 mg Cinacalcet (Sensipar) 30 mg PO DAILY [facility] Last Admin: 02/07/17 09:34 Dose: 30 mg Famotidine (Pepcid) 20 mg PO DAILY [facility] Last Admin: 02/07/17 09:34 Dose: 20 mg Heparin Sodium (Porcine) (Heparin) 5,000 units SC Q8 [facility] Last Admin: 02/07/17 06:19 Dose: 5,000 units Moxifloxacin HCl (Avelox Iv 400mg/250ml Ns) 400 mg in 250 mls @ 167 mls/hr IVPB Q24H [facility] Last Admin: 02/07/17 09:55 Dose: 167 mls/hr Insulin Glargine (Lantus) 10 unit SC HS [facility] Last Admin: 02/06/17 21:24 Dose: Not Given Insulin Human Regular (Novolin R) 0 unit SC ACHS [facility] PRN Reason: Protocol Last Admin: 02/06/17 12:37 Dose: Not Given Metoprolol Succinate (Toprol Xl) 25 mg PO DAILY [facility] Rosuvastatin Calcium (Crestor) 10 mg PO HS [facility] Last Admin: 02/06/17 21:40 Dose: 10 mg Ticagrelor (Brilinta) 90 mg PO Q12H [facility] - Labs Labs: 02/07/17 14:44 02/07/17 14:44 PT 12.3 SECONDS (9.7-12.2) H 02/07/17 14:44 INR 1.1 02/07/17 14:44 APTT 29 SECONDS (21-34) 02/07/17 14:44 - Constitutional Appears: Non-toxic, No Acute Distress - Head Exam Head Exam: NORMAL INSPECTION - Eye Exam Eye Exam: EOMI - ENT Exam ENT Exam: Mucous Membranes Moist - Respiratory Exam Respiratory Exam: Rales, Rhonchi. absent: Wheezes, Respiratory Distress, Stridor - Cardiovascular Exam Cardiovascular Exam: REGULAR RHYTHM, +S1, +S2 - GI/Abdominal Exam GI & Abdominal Exam: Soft, Normal Bowel Sounds. absent: Distended, Firm, Guarding, Rigid, Tenderness, Rebound - Extremities Exam Extremities Exam: Pedal Edema (trace) - Neurological Exam Neurological Exam: Alert, Awake, Oriented x3 - Psychiatric Exam Psychiatric exam: Normal Affect, Normal Mood - Skin Skin Exam: Dry, Intact, Normal Color, Warm Assessment and Plan - Assessment and Plan (Free Text) Assessment: (1) ACS (acute coronary syndrome) New LBBB Coronary Artery Disease Assessment and Plan: Admit to ICU Patient was code heart; transferred from [place] for shortness of breathe, LBBB , and positive troponin Cardiology: Dr. Montes De Oca, help appreciated Cardiology (code heart): Dr. Fuentes, help appreciated Transferred out from ICU on 02/06/17 Risk factors: DM, HTN, CAD, Prior CA, ESRD ASA 81mg PO daily Brillinta 90mg PO BID started today, 02/05/17 Toprol XL 25mg PO daily Crestor 10mg PO HS HgbA1c: 5.4 Lipid panel: TG 295, Cholesterol 148, LDL 78, HDL 23 Echo: f/u Prior Echo (12/26/16): left ventricle is mildly dilated. borderline concentric left ventricular hypertrophy. systolic function moderately to severely impaired. EF; 35-40%, apical hypokinesis, No left ventricle thrombus noted on this study PATRICIA inhibitor held secondary to ESRD Status: Acute (2) Pneumonia Assessment and Plan: Infectious disease consult (Dr. Mast) for pneumonia in light of elevated procalcitonin CXR (02/05/17): prominent diffuse increased interstitial lung markings bilaterally; Superimposed confluent consolidate opacity throughout the left lung and within the right mid to lower lung zone. Cardiomegaly CXR (02/06/17): persistent prominent consolidate changes within the bilateral lung fielnds most prominent at the right upper and lower lung zones as well as left hilar region and left lung base CXR (02/07/17): bibasilar aispace disease may represent atelectasis or pneumonia. persistent moderate congestive heart failure Mycoplasma IgM: negative; unable to Strep/Legionella because patient is anuric Former smoker--> tobacco cessation provided; quit 15 years ago Echocardiogram completed-->awaiting report Prior hospitalization: systolic/diastolic CHF and pneumonia Start Avelox 400mg IV q daily (active since 02/06/17) Status: improving (3) ESRD (end stage renal disease) Assessment and Plan: Cna Gna: Dr. Nguyen, help appreciated Received dialysis this afternoon on 02/07/17 Calcium acetate Sensipar 30mg PO daily Status: Chronic (4) Diabetes mellitus Assessment and Plan: HgbA1c: 5.4 Lipid panel: TG 295, Cholesterol 148, LDL 78, HDL 23 Accuchecks QACHS Lantus 10 units SC daily ISS SC Status: Chronic (5) Abdominal pain Status: Resolved--> patient had bowel movement yesterday and feels better Abdominal US: hepatomegaly and hepatic steatosis, medical renal disease. multiple cysts in the kidneys as described above. 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
--- NOTE | 2017-02-07 19:12 | CP.PCM.PN ---
Subjective - Date & Time of Evaluation Date of Evaluation: 02/07/17 Time of Evaluation: 18:50 - Subjective Subjective: feels well. no chest pain Objective - Vital Signs/Intake and Output Vital Signs (last 24 hours): Temp Pulse Resp BP Pulse Ox 97.4 F L 90 20 130/56 L 96 02/07/17 18:31 02/07/17 18:31 02/07/17 18:31 02/07/17 18:31 02/07/17 17:45 Intake and Output: 02/07/17 02/08/17 18:59 06:59 Intake Total 530 355 Balance 530 355 - Medications Medications: Current Medications Aspirin (Ecotrin) 81 mg PO DAILY [facility] Last Admin: 02/07/17 09:34 Dose: 81 mg Calcium Acetate (Phoslo) 667 mg PO AC [facility] Last Admin: 02/07/17 11:33 Dose: 667 mg Cinacalcet (Sensipar) 30 mg PO DAILY [facility] Last Admin: 02/07/17 09:34 Dose: 30 mg Famotidine (Pepcid) 20 mg PO DAILY [facility] Last Admin: 02/07/17 09:34 Dose: 20 mg Heparin Sodium (Porcine) (Heparin) 5,000 units SC Q8 [facility] Last Admin: 02/07/17 06:19 Dose: 5,000 units Moxifloxacin HCl (Avelox Iv 400mg/250ml Ns) 400 mg in 250 mls @ 167 mls/hr IVPB Q24H [facility] Last Admin: 02/07/17 09:55 Dose: 167 mls/hr Insulin Glargine (Lantus) 10 unit SC HS [facility] Last Admin: 02/06/17 21:24 Dose: Not Given Insulin Human Regular (Novolin R) 0 unit SC ACHS [facility] PRN Reason: Protocol Last Admin: 02/06/17 12:37 Dose: Not Given Metoprolol Succinate (Toprol Xl) 25 mg PO DAILY [facility] Rosuvastatin Calcium (Crestor) 10 mg PO HS [facility] Last Admin: 02/06/17 21:40 Dose: 10 mg Ticagrelor (Brilinta) 90 mg PO Q12H [facility] - Labs Labs: 02/07/17 14:44 02/07/17 14:44 PT 12.3 SECONDS (9.7-12.2) H 02/07/17 14:44 INR 1.1 02/07/17 14:44 APTT 29 SECONDS (21-34) 02/07/17 14:44 - Constitutional Appears: Non-toxic - Head Exam Head Exam: NORMAL INSPECTION - Eye Exam Eye Exam: Normal appearance - ENT Exam ENT Exam: Mucous Membranes Moist - Neck Exam Neck Exam: Full ROM - Respiratory Exam Respiratory Exam: Decreased Breath Sounds - Cardiovascular Exam Cardiovascular Exam: REGULAR RHYTHM - GI/Abdominal Exam GI & Abdominal Exam: Normal Bowel Sounds - Rectal Exam Rectal Exam: Deferred - Back Exam Back Exam: NORMAL INSPECTION - Neurological Exam Neurological Exam: Alert - Psychiatric Exam Psychiatric exam: Normal Affect - Skin Skin Exam: Normal Color Assessment and Plan (1) Acute myocardial infarction involving left anterior descending (LAD) coronary artery Assessment & Plan: continue ASA/Brilinta Status: Acute (2) Diabetes mellitus Assessment & Plan: glucose control Status: Chronic (3) ESRD (end stage renal disease) Assessment & Plan: tolerating dialysis Status: Chronic (4) HTN (hypertension) Assessment & Plan: controlled. Status: Chronic
[2017-02-07] MEDS: (Lantus) Insulin Glargine, Recombinant SC SCH (21:59)
[2017-02-07] MEDS: Metoprolol Succinate 25 mg XL Tab PO SCH (22:56)
[2017-02-08] MEDS: Metoprolol Succinate 25 mg XL Tab PO SCH (09:20)
[2017-02-08] MEDS: Moxifloxacin IV 400mg/250ml NS 400 MG/250 ML BAG IVPB SCH (09:23)
--- NOTE | 2017-02-08 11:33 | CP.PCM.PN ---
Subjective - Date & Time of Evaluation Date of Evaluation: 02/08/17 Time of Evaluation: 11:32 - Subjective Subjective: pt had an episode of epistaxis. seen by ent otherwise denies any cp/sob/headache/n/v/d hd yesterday Objective - Vital Signs/Intake and Output Vital Signs (last 24 hours): Temp Pulse Resp BP Pulse Ox 100 F H 84 12 128/57 L 99 02/08/17 00:00 02/08/17 01:29 02/08/17 01:00 02/08/17 07:39 02/07/17 19:00 Intake and Output: 02/08/17 02/08/17 06:59 18:59 Intake Total 355 Balance 355 - Medications Medications: Current Medications Aspirin (Ecotrin) 81 mg PO DAILY [facility] Last Admin: 02/08/17 09:19 Dose: 81 mg Calcium Acetate (Phoslo) 667 mg PO AC [facility] Last Admin: 02/08/17 09:19 Dose: 667 mg Cinacalcet (Sensipar) 30 mg PO DAILY [facility] Last Admin: 02/08/17 10:23 Dose: 30 mg Famotidine (Pepcid) 20 mg PO DAILY [facility] Last Admin: 02/08/17 09:19 Dose: 20 mg Heparin Sodium (Porcine) (Heparin) 5,000 units SC Q8 [facility] Last Admin: 02/07/17 06:19 Dose: 5,000 units Moxifloxacin HCl (Avelox Iv 400mg/250ml Ns) 400 mg in 250 mls @ 167 mls/hr IVPB Q24H [facility] Last Admin: 02/08/17 09:23 Dose: 167 mls/hr Insulin Glargine (Lantus) 10 unit SC HS [facility] Last Admin: 02/07/17 21:59 Dose: 10 units Insulin Human Regular (Novolin R) 0 unit SC [facility] PRN Reason: Protocol Last Admin: 02/06/17 12:37 Dose: Not Given Metoprolol Succinate (Toprol Xl) 25 mg PO DAILY [facility] Last Admin: 02/08/17 09:20 Dose: 25 mg Rosuvastatin Calcium (Crestor) 10 mg PO HS [facility] Last Admin: 02/07/17 21:58 Dose: 10 mg Ticagrelor (Brilinta) 90 mg PO Q12H [facility] Last Admin: 02/08/17 04:56 Dose: 90 mg - Labs Labs: 02/07/17 14:44 02/07/17 14:44 PT 12.3 SECONDS (9.7-12.2) H 02/07/17 14:44 INR 1.1 02/07/17 14:44 APTT 29 SECONDS (21-34) 02/07/17 14:44 - Constitutional Appears: Non-toxic, No Acute Distress, Chronically Ill - Head Exam Head Exam: NORMAL INSPECTION - Eye Exam Eye Exam: Normal appearance - ENT Exam ENT Exam: Mucous Membranes Moist, Normal Exam Additional comments: nasal packing - Neck Exam Neck Exam: Normal Inspection - Respiratory Exam Respiratory Exam: Decreased Breath Sounds, Clear to Ausculation Bilateral, NORMAL BREATHING PATTERN - Cardiovascular Exam Cardiovascular Exam: REGULAR RHYTHM, RRR - GI/Abdominal Exam GI & Abdominal Exam: Distended, Soft - Extremities Exam Extremities Exam: Normal Inspection, Pedal Edema Assessment and Plan (1) Acute myocardial infarction involving left anterior descending (LAD) coronary artery Status: Acute (2) CAD (coronary artery disease) Status: Acute (3) Status post cardiac catheterization Status: Acute (4) Type 2 diabetes mellitus with diabetic nephropathy Status: Acute (5) NSTEMI (non-ST elevated myocardial infarction) Status: Acute (6) ESRD (end stage renal disease) Status: Chronic - Assessment and Plan (Free Text) Assessment: maintain hd tts cardiac management watch hgb
[2017-02-08 11:41] LABS: BASO % 0.7 % (0.0-2.0); EOS # 0.1 K/uL (0.0-0.7); EOS % 1.7 % (0.0-4.0); HEMOGLOBIN 10.9 g/dL (12.0-18.0); LYMPH # 0.7 K/uL (1.0-4.3); LYMPH % 10.1 % (20.0-40.0); MEAN CELL VOLUME 88.5 fL (80.0-94.0); MEAN CORPUSCULAR HEMOGLOBIN 28.6 pg (27.0-31.0); MEAN CORPUSCULAR HGB CONC 32.4 g/dL (33.0-37.0); MEAN PLATELET VOLUME 8.7 fL (7.2-11.7); MONO # 0.6 K/uL (0.0-0.8); MONO % 8.5 % (0.0-10.0); NEUT # 5.4 K/uL (1.8-7.0); RBC 3.81 Mil/uL (4.40-5.90); RED CELL DISTRIBUTION WIDTH 15.7 % (11.5-14.5); WHITE BLOOD COUNT 6.8 K/uL (4.8-10.8)
[2017-02-08 11:57] LABS: ALBUMIN 3.4 g/dL (3.5-5.0)
[2017-02-08 12:01] LABS: CALCIUM 8.9 mg/dl (8.6-10.4)
--- NOTE | 2017-02-08 14:04 | CP.PCM.PN ---
Subjective - Date & Time of Evaluation Date of Evaluation: 02/08/17 Time of Evaluation: 14:00 - Subjective Subjective: patient has no current chest pain Objective - Vital Signs/Intake and Output Vital Signs (last 24 hours): Temp Pulse Resp BP Pulse Ox 100 F H 84 12 128/57 L 99 02/08/17 00:00 02/08/17 01:29 02/08/17 01:00 02/08/17 07:39 02/07/17 19:00 Intake and Output: 02/08/17 02/08/17 06:59 18:59 Intake Total 355 Balance 355 - Medications Medications: Current Medications Aspirin (Ecotrin) 81 mg PO DAILY [facility] Last Admin: 02/08/17 09:19 Dose: 81 mg Calcium Acetate (Phoslo) 667 mg PO AC [facility] Last Admin: 02/08/17 13:32 Dose: 667 mg Cinacalcet (Sensipar) 30 mg PO DAILY [facility] Last Admin: 02/08/17 10:23 Dose: 30 mg Famotidine (Pepcid) 20 mg PO DAILY [facility] Last Admin: 02/08/17 09:19 Dose: 20 mg Heparin Sodium (Porcine) (Heparin) 5,000 units SC Q8 [facility] Last Admin: 02/07/17 06:19 Dose: 5,000 units Moxifloxacin HCl (Avelox Iv 400mg/250ml Ns) 400 mg in 250 mls @ 167 mls/hr IVPB Q24H [facility] Last Admin: 02/08/17 09:23 Dose: 167 mls/hr Insulin Glargine (Lantus) 10 unit SC HS [facility] Last Admin: 02/07/17 21:59 Dose: 10 units Insulin Human Regular (Novolin R) 0 unit SC ACHS [facility] PRN Reason: Protocol Last Admin: 02/06/17 12:37 Dose: Not Given Metoprolol Succinate (Toprol Xl) 25 mg PO DAILY [facility] Last Admin: 02/08/17 09:20 Dose: 25 mg Rosuvastatin Calcium (Crestor) 10 mg PO HS [facility] Last Admin: 02/07/17 21:58 Dose: 10 mg Ticagrelor (Brilinta) 90 mg PO Q12H [facility] Last Admin: 02/08/17 04:56 Dose: 90 mg - Labs Labs: 02/08/17 11:26 02/08/17 11:26 PT 12.3 SECONDS (9.7-12.2) H 02/07/17 14:44 INR 1.1 02/07/17 14:44 APTT 29 SECONDS (21-34) 02/07/17 14:44 - Constitutional Appears: Non-toxic - Head Exam Head Exam: NORMAL INSPECTION - Eye Exam Eye Exam: Normal appearance - ENT Exam ENT Exam: Mucous Membranes Moist - Neck Exam Neck Exam: Full ROM - Respiratory Exam Respiratory Exam: NORMAL BREATHING PATTERN - Cardiovascular Exam Cardiovascular Exam: REGULAR RHYTHM - GI/Abdominal Exam GI & Abdominal Exam: Normal Bowel Sounds - Rectal Exam Rectal Exam: Deferred - Extremities Exam Extremities Exam: Pedal Edema - Back Exam Back Exam: NORMAL INSPECTION - Neurological Exam Neurological Exam: Alert - Psychiatric Exam Psychiatric exam: Normal Affect - Skin Skin Exam: Normal Color Assessment and Plan (1) Acute myocardial infarction involving left anterior descending (LAD) coronary artery Assessment & Plan: s/p PCI LAD. continue ASA/Brilinta. improved Status: Acute (2) Diabetes mellitus Assessment & Plan: will continue glucose control Status: Chronic (3) ESRD (end stage renal disease) Assessment & Plan: medicla therapy Status: Chronic (4) HTN (hypertension) Assessment & Plan: improved. Status: Chronic
--- NOTE | 2017-02-08 14:21 | CON ---
DATE: 02/08/2017 REASON FOR CONSULTATION: Epistaxis. HISTORY OF PRESENT ILLNESS: This is a 77-year-old male had episodes of epistaxis yesterday. After being heparinized, the epistaxis stopped. It was moderate in intensity and constantly it was going on, it lasted for few hours and it was on the right. PAST MEDICAL HISTORY: As noted in the chart by me. MEDICATIONS: As noted in the chart by me. PHYSICAL EXAMINATION: HEAD: Atraumatic, normocephalic. FACE: Good facial movements bilaterally. CONSTITUTIONAL: Well fed, well nourished. COMMUNICATION: Communicates appropriately. EXTERNAL NOSE: No masses. No lesions. No erythema. No edema. INTERNAL NOSE: Deviated septum. No masses. No lesions. No erythema. No edema. No bleeding. LIPS AND GUMS: No masses. No lesions. No erythema. No edema. ORAL CAVITY AND OROPHARYNX: No bloody post nasal drip. No masses. No lesions. No erythema. No edema. NECK: Supple. THYROID: No thyromegaly, no goiter. LYMPH NODES: No lymphadenopathy of the neck. ASSESSMENT: 1. Epistaxis resolved. 2. Deviated septum. PLAN: If the patient bleeds again, please reconsult and we will pack the nose. Sonu Pedroza MD MTDD
--- NOTE | 2017-02-08 16:24 | VASCLAB ---
PROCEDURE: Lower Extremity Venous Duplex Exam. HISTORY: calf pain PRIORS: None. TECHNIQUE: Bilateral common femoral, femoral, popliteal and posterior tibial, peroneal and great saphenous veins were evaluated. Flow was assessed with color Doppler, compressibility, assessment of phasic flow and augmentation response. Report prepared by LEWIS Mckeon FINDINGS: RIGHT: 1. Common Femoral Vein: 1.1. Compressibility - Fully compressible: Thrombus - None : Flow - Phasic: Augmentation -Normal: Reflux - None. 2. Femoral Vein: 2.1. Compressibility - Fully compressible: Thrombus - None : Flow - Phasic: Augmentation -Normal: Reflux - None. 3. Popliteal Vein: 3.1. Compressibility - Fully compressible: Thrombus - None : Flow - Phasic: Augmentation -Normal: Reflux - None. 4. Posterior Tibial Vein: 4.1. Compressibility - Fully compressible: Thrombus - None: Flow - Phasic: Augmentation -Normal: Reflux - None. 5. Peroneal Vein: 5.1. Compressibility - Fully compressible: Thrombus - None: Flow - Phasic: Augmentation -Normal: Reflux - None. 6. Great Saphenous Vein: 6.1. Compressibility - Fully compressible: Thrombus - None: Flow - Phasic: Augmentation - Normal: Reflux - None. LEFT: 1. Common Femoral Vein: 1.1. Compressibility - Fully compressible: Thrombus - None: Flow - Phasic: Augmentation -Normal: Reflux - None. 2. Femoral Vein: 2.1. Compressibility - Fully compressible: Thrombus - None: Flow - Phasic: Augmentation -Normal: Reflux - None. 3. Popliteal Vein: 3.1. Compressibility - Fully compressible: Thrombus - None : Flow - Phasic: Augmentation -Normal: Reflux - None. 4. Posterior Tibial Vein: 4.1. Compressibility - Fully compressible: Thrombus - None: Flow - Phasic: Augmentation -Normal: Reflux - None. 5. Peroneal Vein: 5.1. Compressibility - Fully compressible: Thrombus - None: Flow - Phasic: Augmentation -Normal: Reflux - None. 6. Great Saphenous Vein: 6.1. Compressibility - Fully compressible: Thrombus - None: Flow - Phasic: Augmentation - Normal: Reflux - None. OTHER FINDINGS: Right: None significant. Left: None significant. IMPRESSION: Right: No evidence of deep or superficial vein thrombosis of the right lower extremity. Normal valve function noted of the right side. Left: No evidence of deep or superficial vein thrombosis of the left lower extremity. Normal valve function noted of the left side.
--- NOTE | 2017-02-08 18:32 | CP.PCM.CON ---
History of Present Illness - History of Present Illness History of Present Illness: 77 year old male with PMH HTN, CAD s/p PCI LAD and LCx, who presents from [facility] with dyspnea and new LBBB. The patient had intervention of a stent for restenosis of the L circumflex artery in December and was to be scheduled for elective intervention of the proximal LAD. The patient did not follow up after coronary intervention. The patient complained of epigastric pain and dyspnea on the day of admission. Code heart was called due to new LBBB. The patient underwent cardiac catheteization and intervention by Dr. Fuentes. He was found to have haziness of the proximal LAD, suspicious for ruptured plaque. MADELEINE was placed. Troponin was noted to be 54. referred for ID eval of pneumonia/ exac COPD Review of Systems - Constitutional Constitutional: absent: As Per HPI, Anorexia, Chills, Daytime Sleepiness, Excessive Sweating, Fatigue, Fever, Frequent Falls, Headache, Increased Appetite , Lethargy, Malaise, Night Sweats, Snoring, Sleep Apnea, Weight Gain, Weight Loss, Weakness, Other - EENT Eyes: absent: As Per HPI, Blind Spots, Blurred Vision, Change in Vision, Decreased Night Vision, Diplopia, Discharge, Dry Eye, Exophthalmos, Floaters, Irritation, Itchy Eyes, Loss of Peripheral Vision, Pain, Photophobia, Requires Corrective Lenses, Sees Flashes, Spots in Vision, Tunnel Vision, Other Visual Disturbances, Loss of Vision, Other Ears: absent: As Per HPI, Decreased Hearing, Ear Discharge, Ear Pain, Tinnitus, Abnormal Hearing, Disequilibrium, Dizziness, Other Nose/Mouth/Throat: absent: As Per HPI, Epistaxis, Nasal Congestion, Nasal Discharge, Nasal Obstruction, Nasal Trauma, Nose Pain, Post Nasal Drip, Sinus Pain, Sinus Pressure, Bleeding Gums, Change in Voice, Dental Pain, Dry Mouth, Dysphagia, Halitosis, Hoarsness, Lip Swelling, Mouth Lesions, Mouth Pain, Odynophagia, Sore Throat, Throat Swelling, Tongue Swelling, Facial Pain, Neck Pain, Neck Mass, Other referred for ID eval of pneumonia/ exac COPD - Cardiovascular Cardiovascular: Dyspnea - Respiratory Respiratory: Dyspnea - Gastrointestinal Gastrointestinal: Abdominal Pain - Genitourinary Genitourinary: absent: As Per HPI, Change in Urinary Stream, Difficulty Urinating, Dysuria, Flank Pain, Hematuria, Pyuria, Nocturia, Urinary Incontinence, Urinary Frequency, Urinary Hesitance, Urinary Urgency, Voiding Freq/Small Amts, Freq UTI, Hx Renal/Bladder Calculi, Hx /Renal Surgery, Bladder Distension, Other - Musculoskeletal Musculoskeletal: absent: As Per HPI, Abnormal Gait, Arthralgias, Atrophy, Back Pain, Deformity, Joint Swelling, Limited Range of Motion, Loss of Height, Muscle Cramps, Muscle Weakness, Myalgias, Neck Pain, Numbness, Radiating Pain into Limb, Stiffness, Tingling, Other - Integumentary Integumentary: absent: As Per HPI, Acne, Alopecia, Bleeding Lesions, Change in Hair, Change in Nails, Change in Pigmentation, Changing Lesions, Dry Skin, Erythema, Furuncle, Hirsutism, Lesions, New Lesions, Non-Healing Lesions, Photosensitivity, Pruritus, Rash, Skin Pain, Skin Ulcer, Sores, Striae, Swelling , Unusual Bruising, Wounds, Jaundice, Other - Neurological Neurological: absent: As Per HPI, Abnormal Gait, Abnormal Hearing, Abnormal Movements, Abnormal Speech, Behavioral Changes, Burning Sensations, Confusion, Convulsions, Disequilibrium, Dizziness, Numbness, Focal Weakness, Frequent Falls , Headaches, Lack of Coordination, Loss of Vision, Memory Loss, Paresthesias, Radicular Pain, Restless Legs, Sensory Deficit, Syncope, Tingling, Tremor, Vertigo, Weakness, Other Visual Disturbances, Other - Psychiatric Psychiatric: absent: As Per HPI, Abnormal Sleep Pattern, Anhedonia, Anxiety, Auditory Hallucinations, Behavioral Changes, Change in Appetite, Change in Libido, Confusion, Depression, Difficulty Concentrating, Hallucinations, Homicidal Ideation, Hopelessness, Irritability, Memory Loss, Mood Swings, Panic Attacks, Paranoia, Suicidal Ideation, Visual Hallucinations, Tactile Hallucinations, Other - Endocrine Endocrine: absent: As Per HPI, Change in Body Appearance, Change in Libido, Cold Intolorance, Deepening of Voice, Excessive Sweating, Fatigue, Flushing, Heat Intolorance, Increase in Ring/Shoe/Hat Size, Palpitations, Polydipsia, Polyphagia, Polyuria, Other - Hematologic/Lymphatic Hematologic: absent: As Per HPI, Easy Bleeding, Easy Bruising, Lymphadenopathy, Other Past Patient History - Infectious Disease Hx of Infectious Diseases: None - Tetanus Immunizations Tetanus Immunization: Unknown - Past Medical History & Family History Past Medical History?: Yes - Past Social History Smoking Status: Former Smoker Chewing Tobacco Use: No Cigar Use: No Occupation: retired Alcohol: Occasional Drugs: Denies Home Situation {Lives}: Alone - CARDIAC Hx Cardiac Disorders: (CAD) - PULMONARY Hx Respiratory Disorders: Yes - NEUROLOGICAL Hx Neurological Disorder: No - HEENT Hx HEENT Problems: Yes - RENAL Hx Chronic Kidney Disease: Yes Date of Last Dialysis Treatment: 02/04/17 Hx Kidney Stones: No - ENDOCRINE/METABOLIC Hx Endocrine Disorders: Yes Hx Diabetes Mellitus Type 2: Yes - HEMATOLOGICAL/ONCOLOGICAL Hx Human Immunodeficiency Virus (HIV): No - INTEGUMENTARY Hx Dermatological Problems: Yes - MUSCULOSKELETAL/RHEUMATOLOGICAL Hx Musculoskeletal Disorders: No - GASTROINTESTINAL Hx Gastrointestinal Disorders: No - GENITOURINARY/GYNECOLOGICAL Hx Genitourinary Disorders: No - PSYCHIATRIC Hx Psychophysiologic Disorder: No Hx Substance Use: No - SURGICAL HISTORY Hx Arteriovenous Shunt: Yes Hx Cardiac Catheterization: Yes Hx Coronary Stent: Yes - ANESTHESIA Hx Anesthesia: Yes Hx Anesthesia Reactions: No Hx Malignant Hyperthermia: No Meds Allergies/Adverse Reactions: Allergies Allergy/AdvReac Type Severity Reaction Status Date / Time Sulfa (Sulfonamide Allergy PAIN Verified 12/25/16 01:58 Antibiotics) milk AdvReac NAUSEA Verified 12/25/16 01:58 - Medications Medications: Current Medications Aspirin (Ecotrin) 81 mg PO DAILY [facility] Last Admin: 02/08/17 09:19 Dose: 81 mg Calcium Acetate (Phoslo) 667 mg PO AC [facility] Last Admin: 02/08/17 17:32 Dose: 667 mg Cinacalcet (Sensipar) 30 mg PO DAILY [facility] Last Admin: 02/08/17 10:23 Dose: 30 mg Famotidine (Pepcid) 20 mg PO DAILY [facility] Last Admin: 02/08/17 09:19 Dose: 20 mg Heparin Sodium (Porcine) (Heparin) 5,000 units SC Q8 [facility] Last Admin: 02/07/17 06:19 Dose: 5,000 units Moxifloxacin HCl (Avelox Iv 400mg/250ml Ns) 400 mg in 250 mls @ 167 mls/hr IVPB Q24H [facility] Last Admin: 02/08/17 09:23 Dose: 167 mls/hr Insulin Glargine (Lantus) 10 unit SC HS [facility] Last Admin: 02/07/17 21:59 Dose: 10 units Insulin Human Regular (Novolin R) 0 unit SC ACHS [facility] PRN Reason: Protocol Last Admin: 02/06/17 12:37 Dose: Not Given Metoprolol Succinate (Toprol Xl) 25 mg PO DAILY [facility] Last Admin: 02/08/17 09:20 Dose: 25 mg Rosuvastatin Calcium (Crestor) 10 mg PO HS [facility] Last Admin: 02/07/17 21:58 Dose: 10 mg Ticagrelor (Brilinta) 90 mg PO Q12H [facility] Last Admin: 02/08/17 04:56 Dose: 90 mg Physical Exam - Constitutional Appears: Non-toxic, Chronically Ill - Head Exam Head Exam: NORMOCEPHALIC - Eye Exam Eye Exam: PERRL. absent: Scleral icterus - ENT Exam ENT Exam: Mucous Membranes Dry, Normal External Ear Exam - Neck Exam Neck exam: Negative for: Lymphadenopathy - Respiratory Exam Respiratory Exam: Decreased Breath Sounds, Rales, Rhonchi - Cardiovascular Exam Cardiovascular Exam: REGULAR RHYTHM, +S1, +S2 - GI/Abdominal Exam GI & Abdominal Exam: Diminished Bowel Sounds, Distended, Soft. absent: Tenderness - Rectal Exam Rectal Exam: Deferred - Exam Exam: NORMAL INSPECTION - Extremities Exam Extremities exam: Positive for: pedal pulses present. Negative for: calf tenderness, pedal edema, tenderness - Back Exam Back exam: absent: CVA tenderness (L), CVA tenderness (R), paraspinal tenderness - Neurological Exam Neurological exam: Alert, CN II-XII Intact, Oriented x3, Reflexes Normal - Psychiatric Exam Psychiatric exam: Normal Mood - Skin Skin Exam: Dry, Intact Results - Vital Signs Recent Vital Signs: Last Vital Signs Temp 100 F H 02/08/17 00:00 Pulse 84 02/08/17 01:29 Resp 12 02/08/17 01:00 BP 128/57 L 02/08/17 07:39 Pulse Ox 99 02/07/17 19:00 - Labs Result Diagrams: 02/08/17 11:26 02/08/17 11:26 Labs: Laboratory Results - last 24 hr 02/07/17 02/08/17 02/08/17 21:25 07:12 11:17 WBC RBC Hgb Hct MCV MCH MCHC RDW Plt Count MPV Neut % (Auto) Lymph % (Auto) Brantley % (Auto) Eos % (Auto) Baso % (Auto) Neut # Lymph # Brantley # Eos # Baso # Sodium Potassium Chloride Carbon Dioxide Anion Gap BUN Creatinine Est GFR ( Amer) Est GFR (Non-Af Amer) POC Glucose (mg/dL) 164 H 86 121 H Random Glucose Calcium Total Bilirubin AST ALT Alkaline Phosphatase Total Protein Albumin Globulin Albumin/Globulin Ratio 02/08/17 02/08/17 11:26 11:26 WBC 6.8 RBC 3.81 L Hgb 10.9 L Hct 33.7 L MCV 88.5 MCH 28.6 MCHC 32.4 L RDW 15.7 H Plt Count 135 MPV 8.7 Neut % (Auto) 79.0 H Lymph % (Auto) 10.1 L Brantley % (Auto) 8.5 Eos % (Auto) 1.7 Baso % (Auto) 0.7 Neut # 5.4 Lymph # 0.7 L Brantley # 0.6 Eos # 0.1 Baso # 0.0 Sodium 139 Potassium 4.8 Chloride 93 L Carbon Dioxide 29 Anion Gap 22 H BUN 48 H Creatinine 9.0 H* D Est GFR ( Amer) 7 Est GFR (Non-Af Amer) 6 POC Glucose (mg/dL) Random Glucose 115 H Calcium 8.9 Total Bilirubin 0.5 AST 23 ALT 21 Alkaline Phosphatase 66 Total Protein 6.6 Albumin 3.4 L Globulin 3.2 Albumin/Globulin Ratio 1.0 Assessment & Plan (1) Pneumonia Status: Acute (2) Pneumonia Status: Acute (3) Acute myocardial infarction involving left anterior descending (LAD) coronary artery Status: Acute (4) CAD (coronary artery disease) Status: Acute (5) S/P angioplasty with stent Status: Acute (6) Status post cardiac catheterization Status: Acute (7) Type 2 diabetes mellitus with diabetic nephropathy Status: Acute (8) ACS (acute coronary syndrome) Status: Acute (9) CHF (congestive heart failure) Status: Acute (10) CKD (chronic kidney disease) stage V requiring chronic dialysis Status: Acute - Assessment and Plan (Free Text) Assessment: await cultures cont iv antibitics
[2017-02-08] MEDS: (Lantus) Insulin Glargine, Recombinant SC SCH (21:52)
--- NOTE | 2017-02-08 22:58 | CP.PCM.PN ---
<Sulaiman Curiel - Last Filed: 02/08/17 23:01> Subjective - Date & Time of Evaluation Date of Evaluation: 02/08/17 Time of Evaluation: 22:53 - Subjective Subjective: PGY -[address] Saleem HPI: Patient seen and examined at bedside. Doing well with no complaints at this time. Has not had any episode of epistaxis since yesterday. No chest pain. No SOB. Has been ambulating regularly. Had dialysis yesterday. Denies N/V/D/C/F. Objective - Vital Signs/Intake and Output Vital Signs (last 24 hours): Temp Pulse Resp BP Pulse Ox 98.6 F 71 20 106/59 L 98 02/08/17 15:40 02/08/17 15:40 02/08/17 15:40 02/08/17 15:40 02/08/17 15:40 Intake and Output: 02/08/17 02/09/17 18:59 06:59 Intake Total 320 Balance 320 - Medications Medications: Current Medications Aspirin (Ecotrin) 81 mg PO DAILY [facility] Last Admin: 02/08/17 09:19 Dose: 81 mg Calcium Acetate (Phoslo) 667 mg PO AC [facility] Last Admin: 02/08/17 17:32 Dose: 667 mg Cinacalcet (Sensipar) 30 mg PO DAILY [facility] Last Admin: 02/08/17 10:23 Dose: 30 mg Famotidine (Pepcid) 20 mg PO DAILY [facility] Last Admin: 02/08/17 09:19 Dose: 20 mg Heparin Sodium (Porcine) (Heparin) 5,000 units SC Q8 [facility] Last Admin: 02/07/17 06:19 Dose: 5,000 units Moxifloxacin HCl (Avelox Iv 400mg/250ml Ns) 400 mg in 250 mls @ 167 mls/hr IVPB Q24H [facility] Last Admin: 02/08/17 09:23 Dose: 167 mls/hr Insulin Glargine (Lantus) 10 unit SC HS [facility] Last Admin: 02/08/17 21:52 Dose: 10 units Insulin Human Regular (Novolin R) 0 unit SC ACHS [facility] PRN Reason: Protocol Last Admin: 02/06/17 12:37 Dose: Not Given Metoprolol Succinate (Toprol Xl) 25 mg PO DAILY [facility] Last Admin: 02/08/17 09:20 Dose: 25 mg Rosuvastatin Calcium (Crestor) 10 mg PO HS [facility] Last Admin: 02/08/17 21:52 Dose: 10 mg Ticagrelor (Brilinta) 90 mg PO Q12H [facility] Last Admin: 02/08/17 18:53 Dose: 90 mg - Labs Labs: 02/08/17 11:26 02/08/17 11:26 PT 12.3 SECONDS (9.7-12.2) H 02/07/17 14:44 INR 1.1 02/07/17 14:44 APTT 29 SECONDS (21-34) 02/07/17 14:44 - Constitutional Appears: Well, Non-toxic, No Acute Distress - Head Exam Head Exam: ATRAUMATIC, NORMAL INSPECTION - Eye Exam Eye Exam: EOMI, Normal appearance. absent: Conjunctival injection, Periorbital swelling, Periorbital tenderness, Scleral icterus Pupil Exam: NORMAL ACCOMODATION. absent: Fixed, Irregular, Miosis, Mydriatic - ENT Exam ENT Exam: Mucous Membranes Moist, Normal Exam. absent: Mucous Membranes Dry - Respiratory Exam Respiratory Exam: Rhonchi, Wheezes, NORMAL BREATHING PATTERN. absent: Accessory Muscle Use, Chest Wall Tenderness, Decreased Breath Sounds, Clear to Ausculation Bilateral, Prolonged Expiratory Phase, Rales, Respiratory Distress, Stridor - Cardiovascular Exam Cardiovascular Exam: REGULAR RHYTHM. absent: Bradycardia, Tachycardia, Clicks, Diastolic murmur, Gallop, Irregular Rhythm Additional comments: distant heart sounds - GI/Abdominal Exam GI & Abdominal Exam: Soft, Normal Bowel Sounds. absent: Bruit, Distended, Firm , Guarding, Rigid, Tenderness, Diminished Bowel Sounds, Hernia, Hyperactive Bowel Sounds, Hypoactive Bowel Sounds, Mass, Organomegaly, Pulsatile Mass, Rebound - Back Exam Additional comments: a/v fistula - Neurological Exam Neurological Exam: Alert, Awake, Oriented x3 - Psychiatric Exam Psychiatric exam: Normal Affect, Normal Mood - Skin Skin Exam: Dry, Intact, Normal Color, Warm Assessment and Plan - Assessment and Plan (Free Text) Assessment: (1) ACS (acute coronary syndrome) New LBBB Coronary Artery Disease Assessment and Plan: Admit to ICU Patient was code heart; transferred from [facility] for shortness of breathe, LBBB , and positive troponin Cardiology: Dr. Montes De Oca, help appreciated Cardiology (code heart): Dr. Fuentes, help appreciated Transferred out from ICU on 02/06/17 Risk factors: DM, HTN, CAD, Prior [place], ESRD ASA 81mg PO daily Brillinta 90mg PO BID started 02/05/17 Toprol XL 25mg PO daily Crestor 10mg PO HS HgbA1c: 5.4 Lipid panel: TG 295, Cholesterol 148, LDL 78, HDL 23 Echo: f/u Prior Echo (12/26/16): left ventricle is mildly dilated. borderline concentric left ventricular hypertrophy. systolic function moderately to severely impaired. EF; 35-40%, apical hypokinesis, No left ventricle thrombus noted on this study PATRICIA inhibitor held secondary to ESRD 02/08 - [facility] - continue ASA/Brilinta, cont glucose control Status: Acute (2) Pneumonia Assessment and Plan: Infectious disease consult (Dr. Mast) for pneumonia in light of elevated procalcitonin CXR (02/05/17): prominent diffuse increased interstitial lung markings bilaterally; Superimposed confluent consolidate opacity throughout the left lung and within the right mid to lower lung zone. Cardiomegaly CXR (02/06/17): persistent prominent consolidate changes within the bilateral lung fielnds most prominent at the right upper and lower lung zones as well as left hilar region and left lung base CXR (02/07/17): bibasilar aispace disease may represent atelectasis or pneumonia. persistent moderate congestive heart failure Mycoplasma IgM: negative; unable to Strep/Legionella because patient is anuric Former smoker--> tobacco cessation provided; quit 15 years ago Echocardiogram completed-->awaiting report Prior hospitalization: systolic/diastolic CHF and pneumonia Start Avelox 400mg IV q daily (active since 02/06/17) 02/08 - [facility] - waiting on cultures, continue current Abx regimen Status: improving (3) ESRD (end stage renal disease) Assessment and Plan: Store Facility Technician: Dr. Nguyen, help appreciated Received dialysis this afternoon on 02/07/17 Calcium acetate Sensipar 30mg PO daily Status: Chronic (4) Diabetes mellitus Assessment and Plan: HgbA1c: 5.4 Lipid panel: TG 295, Cholesterol 148, LDL 78, HDL 23 Accuchecks QACHS Lantus 10 units SC daily ISS SC Status: Chronic (5) Abdominal pain Status: Resolved--> patient had bowel movement yesterday and feels better Abdominal US: hepatomegaly and hepatic steatosis, medical renal disease. multiple cysts in the kidneys as described above. 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 ENT (Kasia) saw the patient and said to reconsult if rebleed and they will pack it Status: Acute (7) Prophylactic measure Assessment and Plan: Pepcid 20mg PO daily d/c heparin 5000 units subq 8hours secondary to epistaxis/thrombocytopenia Monitor weight daily Monitor intake and output House Furnishings Supervisor referral Renal Diet Status: Acute <Viridiana Saleem V - Last Filed: 02/13/17 17:07> Objective - Vital Signs/Intake and Output Vital Signs (last 24 hours): Temp Pulse Resp BP Pulse Ox 97.9 F 74 18 122/65 99 02/13/17 07:30 02/13/17 11:54 02/13/17 07:30 02/13/17 07:30 02/13/17 11:54 Intake and Output: 02/13/17 02/13/17 06:59 18:59 Intake Total 150 Balance 150 - Medications Medications: Current Medications Albuterol/Ipratropium (Duoneb 3 Mg/0.5 Mg (3 Ml) Ud) 3 ml INH RQ6 [facility] Last Admin: 02/13/17 13:39 Dose: Not Given Aspirin (Ecotrin) 81 mg PO DAILY [facility] Last Admin: 02/13/17 10:05 Dose: 81 mg Calcium Acetate (Phoslo) 667 mg PO TIDCC [facility] Last Admin: 02/13/17 12:33 Dose: 667 mg Cinacalcet (Sensipar) 30 mg PO DAILY [facility] Last Admin: 02/13/17 10:05 Dose: 30 mg Famotidine (Pepcid) 20 mg PO DAILY [facility] Last Admin: 02/13/17 10:05 Dose: 20 mg Guaifenesin (Mucinex [place]) 600 mg PO BID [facility] Last Admin: 02/13/17 10:05 Dose: 600 mg Heparin Sodium (Porcine) (Heparin) 5,000 units SC Q8 [facility] Last Admin: 02/07/17 06:19 Dose: 5,000 units Insulin Glargine (Lantus) 10 unit SC HS [facility] Last Admin: 02/12/17 21:33 Dose: 10 units Insulin Human Regular (Novolin R) 0 unit SC ACHS [facility] PRN Reason: Protocol Last Admin: 02/06/17 12:37 Dose: Not Given Losartan Potassium (Cozaar) 25 mg PO DAILY [facility] Last Admin: 02/13/17 10:05 Dose: 25 mg Metoprolol Succinate (Toprol Xl) 25 mg PO DAILY [facility] Last Admin: 02/13/17 10:05 Dose: 25 mg Moxifloxacin HCl (Avelox) 400 mg PO DAILY [facility] Last Admin: 02/13/17 10:05 Dose: 400 mg Rosuvastatin Calcium (Crestor) 10 mg PO HS [facility] Last Admin: 02/12/17 21:33 Dose: 10 mg Fluticasone/Salmeterol (Advair Diskus 250/50) 1 puff INH RQ12 [facility] Last Admin: 02/13/17 07:53 Dose: Not Given Ticagrelor (Brilinta) 90 mg PO Q12H [facility] Last Admin: 02/13/17 04:07 Dose: 90 mg - Labs Labs: 02/13/17 07:16 02/13/17 07:16 PT 12.3 SECONDS (9.7-12.2) H 02/07/17 14:44 INR 1.1 02/07/17 14:44 APTT 29 SECONDS (21-34) 02/07/17 14:44 Attending/Attestation - Attestation I have personally seen and examined this patient.: Yes I have fully participated in the care of the patient.: Yes I have reviewed all pertinent clinical information, including history, physical exam and plan: Yes Notes (Text): This is late computer entry for 02/08/17. Patient seen, examined, and case discussed with day-time resident. Patient is on Avelox 400mg IV q daily to cover for pneumonia. Infectious disease on board. Awaiting blood cultures which were drawn from dialysis on . Patient's platelets have normalized. Discussed with the patient, he will need to be on IV abx for pneumonia. (1) ACS (acute coronary syndrome) New LBBB Coronary Artery Disease Assessment and Plan: Admit to ICU Patient was code heart; transferred from [place] for shortness of breathe, LBBB , and positive troponin Cardiology: Dr. Montes De Oca, help appreciated Cardiology (code heart): Dr. Fuentes, help appreciated Transferred out from ICU on 02/06/17 Risk factors: DM, HTN, CAD, Prior [place], ESRD ASA 81mg PO daily Brillinta 90mg PO BID started 02/05/17 Toprol XL 25mg PO daily Crestor 10mg PO HS HgbA1c: 5.4 Lipid panel: TG 295, Cholesterol 148, LDL 78, HDL 23 Echo: f/u Prior Echo (12/26/16): left ventricle is mildly dilated. borderline concentric left ventricular hypertrophy. systolic function moderately to severely impaired. EF; 35-40%, apical hypokinesis, No left ventricle thrombus noted on this study PATRICIA inhibitor held secondary to ESRD 02/08 - [facility] - continue ASA/Brilinta, cont glucose control Status: Acute (2) Pneumonia Assessment and Plan: Infectious disease consult (Dr. Mast) for pneumonia in light of elevated procalcitonin CXR (02/05/17): prominent diffuse increased interstitial lung markings bilaterally; Superimposed confluent consolidate opacity throughout the left lung and within the right mid to lower lung zone. Cardiomegaly CXR (02/06/17): persistent prominent consolidate changes within the bilateral lung fielnds most prominent at the right upper and lower lung zones as well as left hilar region and left lung base CXR (02/07/17): bibasilar aispace disease may represent atelectasis or pneumonia. persistent moderate congestive heart failure Mycoplasma IgM: negative; unable to Strep/Legionella because patient is anuric Prior hospitalization: systolic/diastolic CHF and pneumonia Start Avelox 400mg IV q daily (active since 02/06/17) Procalcitonin: 1.42 (elevated)-->ordered for repeat tomorrow 02/08 - [facility] - waiting on cultures, continue current Abx regimen Status: improving (3) ESRD (end stage renal disease) Assessment and Plan: Store Facility Technician: Dr. Nguyen, help appreciated Received dialysis this afternoon on 02/07/17 Calcium acetate Sensipar 30mg PO daily Status: Chronic (4) Diabetes mellitus Assessment and Plan: HgbA1c: 5.4 Lipid panel: TG 295, Cholesterol 148, LDL 78, HDL 23 Accuchecks QACHS Lantus 10 units SC daily ISS SC Status: Chronic (5) Abdominal pain Status: Resolved--> patient had bowel movement yesterday and feels better Abdominal US: hepatomegaly and hepatic steatosis, medical renal disease. multiple cysts in the kidneys as described above. 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 ENT (Kasia) saw the patient and said to reconsult if rebleed and they will pack it ENT (Dr. hcarles) consulted for epistaxis Status: Acute (7) Prophylactic measure Assessment and Plan: Pepcid 20mg PO daily d/c heparin 5000 units subq 8hours secondary to epistaxis/thrombocytopenia on 02/07/17 Monitor weight daily Monitor intake and output House Furnishings Supervisor referral Renal Diet Status: Acute
[2017-02-09 09:34] LABS: BASO % 0.8 % (0.0-2.0); EOS # 0.2 K/uL (0.0-0.7); HEMOGLOBIN 10.7 g/dL (12.0-18.0); LYMPH # 0.7 K/uL (1.0-4.3); LYMPH % 11.7 % (20.0-40.0); MEAN CELL VOLUME 88.6 fL (80.0-94.0); MEAN CORPUSCULAR HGB CONC 32.7 g/dL (33.0-37.0); MEAN PLATELET VOLUME 8.5 fL (7.2-11.7); MONO # 0.5 K/uL (0.0-0.8); MONO % 7.7 % (0.0-10.0); NEUT # 4.5 K/uL (1.8-7.0); NEUT % 76.8 % (50.0-75.0); RBC 3.7 Mil/uL (4.40-5.90); RED CELL DISTRIBUTION WIDTH 15.7 % (11.5-14.5); WHITE BLOOD COUNT 5.9 K/uL (4.8-10.8)
[2017-02-09 09:46] LABS: ALBUMIN 3.4 g/dL (3.5-5.0)
[2017-02-09 09:50] LABS: ALB/GLOB RATIO 1.1 (1.0-2.1); CALCIUM 8.6 mg/dl (8.6-10.4)
[2017-02-09 09:51] LABS: MAGNESIUM 1.8 mg/dL (1.6-2.3)
[2017-02-09] MEDS: Metoprolol Succinate 25 mg XL Tab PO SCH (13:35)
[2017-02-09] MEDS: Moxifloxacin IV 400mg/250ml NS 400 MG/250 ML BAG IVPB SCH (13:36)
[2017-02-09] MEDS ORDERED: Ipratropium 17 mcg/puff-200 puff/12.5 gm HFA Inh IH SCH (15:30)
--- NOTE | 2017-02-09 17:09 | CP.PCM.PN ---
Subjective - Date & Time of Evaluation Date of Evaluation: 02/09/17 Time of Evaluation: 17:00 - Subjective Subjective: patient has no complaints. no current chest pain or dyspnea. Objective - Vital Signs/Intake and Output Vital Signs (last 24 hours): Temp Pulse Resp BP Pulse Ox 98.1 F 66 20 105/58 L 95 02/09/17 15:50 02/09/17 15:50 02/09/17 15:50 02/09/17 15:50 02/09/17 15:50 Intake and Output: 02/09/17 02/09/17 06:59 18:59 Intake Total 560 Balance 560 - Medications Medications: Current Medications Aspirin (Ecotrin) 81 mg PO DAILY [facility] Last Admin: 02/09/17 13:35 Dose: 81 mg Calcium Acetate (Phoslo) 667 mg PO AC [facility] Last Admin: 02/09/17 16:57 Dose: 667 mg Cinacalcet (Sensipar) 30 mg PO DAILY [facility] Last Admin: 02/09/17 13:35 Dose: 30 mg Famotidine (Pepcid) 20 mg PO DAILY [facility] Last Admin: 02/09/17 13:35 Dose: 20 mg Heparin Sodium (Porcine) (Heparin) 5,000 units SC Q8 [facility] Last Admin: 02/07/17 06:19 Dose: 5,000 units Moxifloxacin HCl (Avelox Iv 400mg/250ml Ns) 400 mg in 250 mls @ 167 mls/hr IVPB Q24H [facility] Last Admin: 02/09/17 13:36 Dose: 167 mls/hr Insulin Glargine (Lantus) 10 unit SC HS [facility] Last Admin: 02/08/17 21:52 Dose: 10 units Insulin Human Regular (Novolin R) 0 unit SC ACHS [facility] PRN Reason: Protocol Last Admin: 02/06/17 12:37 Dose: Not Given Ipratropium [place] (Atrovent Hfa) 2 puff IH RQ4 [facility] Metoprolol Succinate (Toprol Xl) 25 mg PO DAILY [facility] Last Admin: 02/09/17 13:35 Dose: 25 mg Rosuvastatin Calcium (Crestor) 10 mg PO HS [facility] Last Admin: 02/08/17 21:52 Dose: 10 mg Fluticasone/Salmeterol (Advair Diskus 250/50) 1 puff INH RQ12 [facility] Ticagrelor (Brilinta) 90 mg PO Q12H [facility] Last Admin: 02/09/17 16:57 Dose: 90 mg - Labs Labs: 02/09/17 09:28 02/09/17 09:28 PT 12.3 SECONDS (9.7-12.2) H 02/07/17 14:44 INR 1.1 02/07/17 14:44 APTT 29 SECONDS (21-34) 02/07/17 14:44 - Constitutional Appears: Non-toxic - Head Exam Head Exam: NORMAL INSPECTION - Eye Exam Eye Exam: Normal appearance - ENT Exam ENT Exam: Normal Exam - Neck Exam Neck Exam: Full ROM - Respiratory Exam Respiratory Exam: NORMAL BREATHING PATTERN - Cardiovascular Exam Cardiovascular Exam: REGULAR RHYTHM - GI/Abdominal Exam GI & Abdominal Exam: Normal Bowel Sounds - Rectal Exam Rectal Exam: Deferred - Extremities Exam Extremities Exam: absent: Pedal Edema - Back Exam Back Exam: NORMAL INSPECTION - Neurological Exam Neurological Exam: Alert - Psychiatric Exam Psychiatric exam: Normal Affect - Skin Skin Exam: Normal Color Assessment and Plan (1) Acute myocardial infarction involving left anterior descending (LAD) coronary artery Assessment & Plan: cont ASA/Brilinta Status: Acute (2) Diabetes mellitus Assessment & Plan: blood sugar control Status: Chronic (3) ESRD (end stage renal disease) Assessment & Plan: on dialysis Status: Chronic (4) HTN (hypertension) Assessment & Plan: blood controlled Status: Chronic
--- NOTE | 2017-02-09 17:13 | CP.PCM.PN ---
Subjective - Date & Time of Evaluation Date of Evaluation: 02/09/17 Time of Evaluation: 17:10 - Subjective Subjective: no chest pain chronic dyspnea appetite good no headache no rash no fever no arthralgias no insomnia no constipation no visual abnormalities tolerated HD today, 2 kg uf Objective - Vital Signs/Intake and Output Vital Signs (last 24 hours): Temp Pulse Resp BP Pulse Ox 98.1 F 66 20 105/58 L 95 02/09/17 15:50 02/09/17 15:50 02/09/17 15:50 02/09/17 15:50 02/09/17 15:50 Intake and Output: 02/09/17 02/09/17 06:59 18:59 Intake Total 560 Balance 560 - Medications Medications: Current Medications Aspirin (Ecotrin) 81 mg PO DAILY [facility] Last Admin: 02/09/17 13:35 Dose: 81 mg Calcium Acetate (Phoslo) 667 mg PO AC [facility] Last Admin: 02/09/17 16:57 Dose: 667 mg Cinacalcet (Sensipar) 30 mg PO DAILY [facility] Last Admin: 02/09/17 13:35 Dose: 30 mg Famotidine (Pepcid) 20 mg PO DAILY [facility] Last Admin: 02/09/17 13:35 Dose: 20 mg Heparin Sodium (Porcine) (Heparin) 5,000 units SC Q8 [facility] Last Admin: 02/07/17 06:19 Dose: 5,000 units Moxifloxacin HCl (Avelox Iv 400mg/250ml Ns) 400 mg in 250 mls @ 167 mls/hr IVPB Q24H [facility] Last Admin: 02/09/17 13:36 Dose: 167 mls/hr Insulin Glargine (Lantus) 10 unit SC HS [facility] Last Admin: 02/08/17 21:52 Dose: 10 units Insulin Human Regular (Novolin R) 0 unit SC ACHS [facility] PRN Reason: Protocol Last Admin: 02/06/17 12:37 Dose: Not Given Ipratropium [place] (Atrovent Hfa) 2 puff IH RQ4 [facility] Metoprolol Succinate (Toprol Xl) 25 mg PO DAILY [facility] Last Admin: 02/09/17 13:35 Dose: 25 mg Rosuvastatin Calcium (Crestor) 10 mg PO HS [facility] Last Admin: 02/08/17 21:52 Dose: 10 mg Fluticasone/Salmeterol (Advair Diskus 250/50) 1 puff INH RQ12 [facility] Ticagrelor (Brilinta) 90 mg PO Q12H [facility] Last Admin: 02/09/17 16:57 Dose: 90 mg - Labs Labs: 02/09/17 09:28 02/09/17 09:28 PT 12.3 SECONDS (9.7-12.2) H 02/07/17 14:44 INR 1.1 02/07/17 14:44 APTT 29 SECONDS (21-34) 02/07/17 14:44 - Constitutional Appears: Well, Non-toxic - Head Exam Head Exam: ATRAUMATIC - Eye Exam Eye Exam: EOMI, Normal appearance - ENT Exam ENT Exam: Mucous Membranes Moist - Neck Exam Neck Exam: Full ROM - Respiratory Exam Respiratory Exam: Clear to Ausculation Bilateral. absent: Accessory Muscle Use - Cardiovascular Exam Cardiovascular Exam: REGULAR RHYTHM. absent: Rubs - GI/Abdominal Exam GI & Abdominal Exam: Soft. absent: Tenderness - Extremities Exam Extremities Exam: Full ROM. absent: Pedal Edema - Neurological Exam Neurological Exam: Alert, Awake - Psychiatric Exam Psychiatric exam: Normal Affect Assessment and Plan - Assessment and Plan (Free Text) Assessment: esrd s/p stent for ami pneumonia continue same, on ab, cultures pending maint HD
--- NOTE | 2017-02-09 18:32 | CP.PCM.PN ---
Subjective - Date & Time of Evaluation Date of Evaluation: 02/09/17 Time of Evaluation: 09:00 - Subjective Subjective: Doing well with no complaints at this time. Has not had any episode of epistaxis since yesterday. No chest pain. No SOB. Has been ambulating regularly. Had dialysis yesterday. Denies N/V/D/C/F. Objective - Vital Signs/Intake and Output Vital Signs (last 24 hours): Temp Pulse Resp BP Pulse Ox 98.1 F 66 20 105/58 L 95 02/09/17 15:50 02/09/17 15:50 02/09/17 15:50 02/09/17 15:50 02/09/17 15:50 Intake and Output: 02/09/17 02/09/17 06:59 18:59 Intake Total 560 Balance 560 - Medications Medications: Current Medications Aspirin (Ecotrin) 81 mg PO DAILY [facility] Last Admin: 02/09/17 13:35 Dose: 81 mg Calcium Acetate (Phoslo) 667 mg PO AC [facility] Last Admin: 02/09/17 16:57 Dose: 667 mg Cinacalcet (Sensipar) 30 mg PO DAILY [facility] Last Admin: 02/09/17 13:35 Dose: 30 mg Famotidine (Pepcid) 20 mg PO DAILY [facility] Last Admin: 02/09/17 13:35 Dose: 20 mg Heparin Sodium (Porcine) (Heparin) 5,000 units SC Q8 [facility] Last Admin: 02/07/17 06:19 Dose: 5,000 units Moxifloxacin HCl (Avelox Iv 400mg/250ml Ns) 400 mg in 250 mls @ 167 mls/hr IVPB Q24H [facility] Last Admin: 02/09/17 13:36 Dose: 167 mls/hr Insulin Glargine (Lantus) 10 unit SC HS [facility] Last Admin: 02/08/17 21:52 Dose: 10 units Insulin Human Regular (Novolin R) 0 unit SC ACHS [facility] PRN Reason: Protocol Last Admin: 02/06/17 12:37 Dose: Not Given Ipratropium [place] (Atrovent Hfa) 2 puff IH RQ4 [facility] Metoprolol Succinate (Toprol Xl) 25 mg PO DAILY [facility] Last Admin: 02/09/17 13:35 Dose: 25 mg Rosuvastatin Calcium (Crestor) 10 mg PO HS [facility] Last Admin: 02/08/17 21:52 Dose: 10 mg Fluticasone/Salmeterol (Advair Diskus 250/50) 1 puff INH RQ12 [facility] Ticagrelor (Brilinta) 90 mg PO Q12H [facility] Last Admin: 02/09/17 16:57 Dose: 90 mg - Labs Labs: 02/09/17 09:28 02/09/17 09:28 PT 12.3 SECONDS (9.7-12.2) H 02/07/17 14:44 INR 1.1 02/07/17 14:44 APTT 29 SECONDS (21-34) 02/07/17 14:44 - Constitutional Appears: Non-toxic, Chronically Ill - Head Exam Head Exam: NORMOCEPHALIC - Eye Exam Eye Exam: PERRL. absent: Scleral icterus - ENT Exam ENT Exam: Mucous Membranes Dry - Neck Exam Neck Exam: absent: Lymphadenopathy - Respiratory Exam Respiratory Exam: Decreased Breath Sounds, Rhonchi Assessment and Plan (1) Pneumonia Status: Acute (2) Pneumonia Status: Acute (3) Acute myocardial infarction involving left anterior descending (LAD) coronary artery Status: Acute (4) CAD (coronary artery disease) Status: Acute (5) S/P angioplasty with stent Status: Acute (6) Status post cardiac catheterization Status: Acute (7) Type 2 diabetes mellitus with diabetic nephropathy Status: Acute (8) ACS (acute coronary syndrome) Status: Acute (9) CHF (congestive heart failure) Status: Acute (10) CKD (chronic kidney disease) stage V requiring chronic dialysis Status: Acute
--- NOTE | 2017-02-09 21:36 | CP.PCM.PN ---
Subjective - Date & Time of Evaluation Date of Evaluation: 02/09/17 Time of Evaluation: 07:45 - Subjective Subjective: Progress note for Dr. Rhodes Patient seen and examined at bedside during dialysis this morning. Patient reports that he feels generally well. Patient states that he is ambulating comfortably. Patient denies fevers, chills, cough, SOB, chest pain, abdominal pain. Objective - Vital Signs/Intake and Output Vital Signs (last 24 hours): Temp Pulse Resp BP Pulse Ox 98.1 F 66 20 105/58 L 95 02/09/17 15:50 02/09/17 15:50 02/09/17 15:50 02/09/17 15:50 02/09/17 15:50 - Medications Medications: Current Medications Aspirin (Ecotrin) 81 mg PO DAILY [facility] Last Admin: 02/09/17 13:35 Dose: 81 mg Calcium Acetate (Phoslo) 667 mg PO AC [facility] Last Admin: 02/09/17 16:57 Dose: 667 mg Cinacalcet (Sensipar) 30 mg PO DAILY [facility] Last Admin: 02/09/17 13:35 Dose: 30 mg Famotidine (Pepcid) 20 mg PO DAILY [facility] Last Admin: 02/09/17 13:35 Dose: 20 mg Heparin Sodium (Porcine) (Heparin) 5,000 units SC Q8 [facility] Last Admin: 02/07/17 06:19 Dose: 5,000 units Moxifloxacin HCl (Avelox Iv 400mg/250ml Ns) 400 mg in 250 mls @ 167 mls/hr IVPB Q24H [facility] Last Admin: 02/09/17 13:36 Dose: 167 mls/hr Insulin Glargine (Lantus) 10 unit SC HS [facility] Last Admin: 02/08/17 21:52 Dose: 10 units Insulin Human Regular (Novolin R) 0 unit SC ACHS [facility] PRN Reason: Protocol Last Admin: 02/06/17 12:37 Dose: Not Given Ipratropium [place] (Atrovent Hfa) 2 puff IH RQ4 [facility] Metoprolol Succinate (Toprol Xl) 25 mg PO DAILY [facility] Last Admin: 02/09/17 13:35 Dose: 25 mg Rosuvastatin Calcium (Crestor) 10 mg PO HS [facility] Last Admin: 02/08/17 21:52 Dose: 10 mg Fluticasone/Salmeterol (Advair Diskus 250/50) 1 puff INH RQ12 [facility] Ticagrelor (Brilinta) 90 mg PO Q12H [facility] Last Admin: 02/09/17 16:57 Dose: 90 mg - Labs Labs: 02/09/17 09:28 02/09/17 09:28 PT 12.3 SECONDS (9.7-12.2) H 02/07/17 14:44 INR 1.1 02/07/17 14:44 APTT 29 SECONDS (21-34) 02/07/17 14:44 - Constitutional Appears: No Acute Distress - Head Exam Head Exam: ATRAUMATIC, NORMAL INSPECTION, NORMOCEPHALIC - Eye Exam Eye Exam: EOMI, PERRL - ENT Exam ENT Exam: Mucous Membranes Moist - Respiratory Exam Respiratory Exam: Rhonchi (b/l), Wheezes (b/l) - Cardiovascular Exam Cardiovascular Exam: REGULAR RHYTHM, +S1, +S2 - GI/Abdominal Exam GI & Abdominal Exam: Soft, Normal Bowel Sounds. absent: Tenderness - Extremities Exam Extremities Exam: absent: Tenderness - Neurological Exam Neurological Exam: Alert, Awake, Oriented x3 - Skin Skin Exam: Dry, Intact, Normal Color, Warm Assessment and Plan - Assessment and Plan (Free Text) Plan: (1) ACS (acute coronary syndrome) New LBBB Coronary Artery Disease Assessment and Plan: Admit to ICU Patient was code heart; transferred from [place] for shortness of breathe, LBBB , and positive troponin Cardiology: Dr. Montes De Oca, help appreciated Cardiology (code heart): Dr. Fuentes, help appreciated Transferred out from ICU on 02/06/17 Risk factors: DM, HTN, CAD, Prior [place], ESRD ASA 81mg PO daily Brillinta 90mg PO BID started 02/05/17 Toprol XL 25mg PO daily Crestor 10mg PO HS HgbA1c: 5.4 Lipid panel: TG 295, Cholesterol 148, LDL 78, HDL 23 Echo: f/u Prior Echo (12/26/16): left ventricle is mildly dilated. borderline concentric left ventricular hypertrophy. systolic function moderately to severely impaired. EF; 35-40%, apical hypokinesis, No left ventricle thrombus noted on this study PATRICIA inhibitor held secondary to ESRD 02/08 - santosh recfredi - continue ASA/Brilinta, cont glucose control Status: Acute (2) Pneumonia Assessment and Plan: Infectious disease consult (Dr. Mast) for pneumonia in light of elevated procalcitonin CXR (02/05/17): prominent diffuse increased interstitial lung markings bilaterally; Superimposed confluent consolidate opacity throughout the left lung and within the right mid to lower lung zone. Cardiomegaly CXR (02/06/17): persistent prominent consolidate changes within the bilateral lung fielnds most prominent at the right upper and lower lung zones as well as left hilar region and left lung base CXR (02/07/17): bibasilar aispace disease may represent atelectasis or pneumonia. persistent moderate congestive heart failure Mycoplasma IgM: negative; unable to Strep/Legionella because patient is anuric Former smoker--> tobacco cessation provided; quit 15 years ago Echocardiogram completed-->awaiting report Prior hospitalization: systolic/diastolic CHF and pneumonia Start Avelox 400mg IV q daily (active since 02/06/17) 02/08 - Per Dr. Mast - waiting on cultures, continue current Abx regimen 02/09 started Atrovent Q4H [facility] and Advair diskus Q12H [facility] Status: improving (3) ESRD (end stage renal disease) Assessment and Plan: Extrusion Press Supervisor: Dr. Nguyen, help appreciated Received dialysis on 02/07/17 and 02/09/17 Calcium acetate Sensipar 30mg PO daily Status: Chronic (4) Diabetes mellitus Assessment and Plan: HgbA1c: 5.4 Lipid panel: TG 295, Cholesterol 148, LDL 78, HDL 23 Accuchecks QACHS Lantus 10 units SC daily ISS SC Status: Chronic (5) Abdominal pain Status: Resolved--> patient had bowel movement yesterday and feels better Abdominal US: hepatomegaly and hepatic steatosis, medical renal disease. multiple cysts in the kidneys as described above. 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 ENT (Behin) saw the patient and said to reconsult if rebleed and they will pack it Status: Acute (7) Prophylactic measure Assessment and Plan: Pepcid 20mg PO daily d/c heparin 5000 units subq 8hours secondary to epistaxis/thrombocytopenia Monitor weight daily Monitor intake and output Child Protective Investigator referral Renal Diet Status: Acute Possible discharge in AM pending respiratory status overnight. Antibiotic treatment course for community acquired pneumonia 10 days total. Case discussed with Dr. Meagan Hernandez PGY1
[2017-02-09] MEDS: (Lantus) Insulin Glargine, Recombinant SC SCH (21:41)
[2017-02-10 06:42] LABS: BASO # 0.1 K/uL (0.0-0.2); BASO % 0.7 % (0.0-2.0); EOS # 0.2 K/uL (0.0-0.7); EOS % 2.7 % (0.0-4.0); HEMOGLOBIN 11.4 g/dL (12.0-18.0); LYMPH # 0.8 K/uL (1.0-4.3); LYMPH % 11.4 % (20.0-40.0); MEAN CELL VOLUME 88.6 fL (80.0-94.0); MEAN CORPUSCULAR HEMOGLOBIN 29.2 pg (27.0-31.0); MEAN PLATELET VOLUME 8.2 fL (7.2-11.7); MONO # 0.6 K/uL (0.0-0.8); MONO % 8.2 % (0.0-10.0); NEUT # 5.3 K/uL (1.8-7.0); RBC 3.89 Mil/uL (4.40-5.90); RED CELL DISTRIBUTION WIDTH 15.5 % (11.5-14.5); WHITE BLOOD COUNT 6.9 K/uL (4.8-10.8)
[2017-02-10 06:51] LABS: ALBUMIN 3.5 g/dL (3.5-5.0)
[2017-02-10 06:54] LABS: ALB/GLOB RATIO 1.1 (1.0-2.1)
[2017-02-10 06:55] LABS: CALCIUM 8.9 mg/dl (8.6-10.4)
[2017-02-10] MEDS: Fluticasone-Salmeterol 250-50mcg Diskus INH SCH ×2 (07:55→20:00)
[2017-02-10] MEDS: Moxifloxacin IV 400mg/250ml NS 400 MG/250 ML BAG IVPB SCH (10:33)
[2017-02-10] MEDS: Metoprolol Succinate 25 mg XL Tab PO SCH (10:33)
[2017-02-10] MEDS: Ipratropium 17 mcg/puff-200 puff/12.5 gm HFA Inh IH SCH ×4 (11:14→20:00)
[2017-02-10] MEDS: guaiFENesin 600 mg ER Tab PO SCH ×2 (12:00→16:59)
--- NOTE | 2017-02-10 12:06 | CP.PCM.PN ---
Subjective - Date & Time of Evaluation Date of Evaluation: 02/10/17 Time of Evaluation: 12:03 - Subjective Subjective: Notes reviewed Comfortable sitting up in bed No new complaints No sob or cp Tolerating dialysis well Appetite good eating breakfast currently No overnight events reported ROS: 10 point ros negative other then stated above Objective - Vital Signs/Intake and Output Vital Signs (last 24 hours): Temp Pulse Resp BP Pulse Ox 98.3 F 89 18 126/67 96 02/10/17 08:50 02/10/17 10:32 02/10/17 10:32 02/10/17 10:32 02/10/17 10:32 Intake and Output: 02/10/17 02/10/17 06:59 18:59 Intake Total 320 Balance 320 - Medications Medications: Current Medications Aspirin (Ecotrin) 81 mg PO DAILY [facility] Last Admin: 02/10/17 10:33 Dose: 81 mg Calcium Acetate (Phoslo) 667 mg PO AC [facility] Last Admin: 02/10/17 12:00 Dose: 667 mg Cinacalcet (Sensipar) 30 mg PO DAILY [facility] Last Admin: 02/10/17 10:34 Dose: 30 mg Famotidine (Pepcid) 20 mg PO DAILY [facility] Last Admin: 02/10/17 10:33 Dose: 20 mg Guaifenesin (Mucinex La) 600 mg PO BID [facility] Last Admin: 02/10/17 12:00 Dose: 600 mg Heparin Sodium (Porcine) (Heparin) 5,000 units SC Q8 [facility] Last Admin: 02/07/17 06:19 Dose: 5,000 units Moxifloxacin HCl (Avelox Iv 400mg/250ml Ns) 400 mg in 250 mls @ 167 mls/hr IVPB Q24H [facility] Last Admin: 02/10/17 10:33 Dose: 167 mls/hr Insulin Glargine (Lantus) 10 unit SC HS [facility] Last Admin: 02/09/17 21:41 Dose: 10 units Insulin Human Regular (Novolin R) 0 unit SC ACHS [facility] PRN Reason: Protocol Last Admin: 02/06/17 12:37 Dose: Not Given Ipratropium [place] (Atrovent Hfa) 2 puff IH RQ4 [facility] Last Admin: 02/10/17 11:14 Dose: 2 puff Metoprolol Succinate (Toprol Xl) 25 mg PO DAILY [facility] Last Admin: 02/10/17 10:33 Dose: 25 mg Rosuvastatin Calcium (Crestor) 10 mg PO HS [facility] Last Admin: 02/09/17 21:41 Dose: 10 mg Fluticasone/Salmeterol (Advair Diskus 250/50) 1 puff INH RQ12 [facility] Last Admin: 02/10/17 07:55 Dose: 1 puff Ticagrelor (Brilinta) 90 mg PO Q12H [facility] Last Admin: 02/10/17 04:57 Dose: 90 mg - Labs Labs: 02/10/17 06:30 02/10/17 06:30 PT 12.3 SECONDS (9.7-12.2) H 02/07/17 14:44 INR 1.1 02/07/17 14:44 APTT 29 SECONDS (21-34) 02/07/17 14:44 - Constitutional Appears: Well, Non-toxic - Head Exam Head Exam: ATRAUMATIC, NORMAL INSPECTION - Eye Exam Eye Exam: EOMI, Normal appearance - ENT Exam ENT Exam: Mucous Membranes Moist, Normal Oropharynx - Neck Exam Neck Exam: absent: Lymphadenopathy, Thyromegaly - Respiratory Exam Respiratory Exam: absent: Rales, Rhonchi - Cardiovascular Exam Cardiovascular Exam: +S1, +S2. absent: Rubs - GI/Abdominal Exam GI & Abdominal Exam: Soft, Normal Bowel Sounds - Extremities Exam Extremities Exam: absent: Joint Swelling, Pedal Edema - Neurological Exam Neurological Exam: Alert, Awake, Oriented x3 - Skin Skin Exam: Dry, Intact Assessment and Plan - Assessment and Plan (Free Text) Assessment: esrd s/p stent for ami HTN pneumonia Maintain dialysis schedule, next treatment 02/12 Bp stable Electrolytes acceptable Follow up with cardiology Complete abx Stable renal ochoa
--- NOTE | 2017-02-10 20:18 | CP.PCM.PN ---
Subjective - Date & Time of Evaluation Date of Evaluation: 02/10/17 Time of Evaluation: 18:00 - Subjective Subjective: PGY-[address] Rhodes Patient seen and examined at bedside. Patient reports feeling fine. Patient states that he still has post nasal drip and feels congested. Patient denies fevers, chills, chest pain, abdominal pain, nausea, vomiting. Objective - Vital Signs/Intake and Output Vital Signs (last 24 hours): Temp Pulse Resp BP Pulse Ox 98.0 F 69 20 113/56 L 99 02/10/17 15:21 02/10/17 16:00 02/10/17 15:21 02/10/17 15:21 02/10/17 15:21 Intake and Output: 02/10/17 02/11/17 18:59 06:59 Intake Total 400 Balance 400 - Medications Medications: Current Medications Aspirin (Ecotrin) 81 mg PO DAILY [facility] Last Admin: 02/10/17 10:33 Dose: 81 mg Calcium Acetate (Phoslo) 667 mg PO AC [facility] Last Admin: 02/10/17 16:57 Dose: 667 mg Cinacalcet (Sensipar) 30 mg PO DAILY [facility] Last Admin: 02/10/17 10:34 Dose: 30 mg Famotidine (Pepcid) 20 mg PO DAILY [facility] Last Admin: 02/10/17 10:33 Dose: 20 mg Guaifenesin (Mucinex [place]) 600 mg PO BID [facility] Last Admin: 02/10/17 16:59 Dose: 600 mg Heparin Sodium (Porcine) (Heparin) 5,000 units SC Q8 [facility] Last Admin: 02/07/17 06:19 Dose: 5,000 units Moxifloxacin HCl (Avelox Iv 400mg/250ml Ns) 400 mg in 250 mls @ 167 mls/hr IVPB Q24H [facility] Last Admin: 02/10/17 10:33 Dose: 167 mls/hr Insulin Glargine (Lantus) 10 unit SC HS [facility] Last Admin: 02/09/17 21:41 Dose: 10 units Insulin Human Regular (Novolin R) 0 unit SC ACHS [facility] PRN Reason: Protocol Last Admin: 02/06/17 12:37 Dose: Not Given Ipratropium [place] (Atrovent Hfa) 2 puff IH RQ4 [facility] Last Admin: 02/10/17 15:30 Dose: 2 puff Metoprolol Succinate (Toprol Xl) 25 mg PO DAILY [facility] Last Admin: 02/10/17 10:33 Dose: 25 mg Rosuvastatin Calcium (Crestor) 10 mg PO HS [facility] Last Admin: 02/09/17 21:41 Dose: 10 mg Fluticasone/Salmeterol (Advair Diskus 250/50) 1 puff INH RQ12 [facility] Last Admin: 02/10/17 07:55 Dose: 1 puff Ticagrelor (Brilinta) 90 mg PO Q12H [facility] Last Admin: 02/10/17 17:00 Dose: 90 mg - Labs Labs: 02/10/17 06:30 02/10/17 06:30 PT 12.3 SECONDS (9.7-12.2) H 02/07/17 14:44 INR 1.1 02/07/17 14:44 APTT 29 SECONDS (21-34) 02/07/17 14:44 - Constitutional Appears: No Acute Distress - Head Exam Head Exam: ATRAUMATIC, NORMAL INSPECTION, NORMOCEPHALIC - Eye Exam Eye Exam: EOMI, PERRL - ENT Exam ENT Exam: Mucous Membranes Moist - Respiratory Exam Respiratory Exam: Rales, Wheezes - Cardiovascular Exam Cardiovascular Exam: REGULAR RHYTHM, +S1, +S2 - GI/Abdominal Exam GI & Abdominal Exam: Soft, Normal Bowel Sounds - Neurological Exam Neurological Exam: Alert, Awake, Oriented x3 - Skin Skin Exam: Dry, Intact, Normal Color, Warm Assessment and Plan - Assessment and Plan (Free Text) Plan: (1) ACS (acute coronary syndrome) New LBBB Coronary Artery Disease Assessment and Plan: Admit to ICU Patient was code heart; transferred from [place] for shortness of breathe, LBBB , and positive troponin Cardiology: Dr. Montes De Oca, help appreciated Cardiology (code heart): Dr. Fuentes, help appreciated Transferred out from ICU on 02/06/17 Risk factors: DM, HTN, CAD, Prior [place], ESRD ASA 81mg PO daily Brillinta 90mg PO BID started 02/05/17 Toprol XL 25mg PO daily Crestor 10mg PO HS HgbA1c: 5.4 Lipid panel: TG 295, Cholesterol 148, LDL 78, HDL 23 Echo: f/u Prior Echo (12/26/16): left ventricle is mildly dilated. borderline concentric left ventricular hypertrophy. systolic function moderately to severely impaired. EF; 35-40%, apical hypokinesis, No left ventricle thrombus noted on this study PATRICIA inhibitor held secondary to ESRD 02/08 - santosh moreau - continue ASA/Brilinta, cont glucose control Status: Acute (2) Pneumonia Assessment and Plan: Infectious disease consult (Dr. Mast) for pneumonia in light of elevated procalcitonin CXR (02/05/17): prominent diffuse increased interstitial lung markings bilaterally; Superimposed confluent consolidate opacity throughout the left lung and within the right mid to lower lung zone. Cardiomegaly CXR (02/06/17): persistent prominent consolidate changes within the bilateral lung fielnds most prominent at the right upper and lower lung zones as well as left hilar region and left lung base CXR (02/07/17): bibasilar aispace disease may represent atelectasis or pneumonia. persistent moderate congestive heart failure Mycoplasma IgM: negative; unable to Strep/Legionella because patient is anuric Former smoker--> tobacco cessation provided; quit 15 years ago Echocardiogram completed-->awaiting report Prior hospitalization: systolic/diastolic CHF and pneumonia Start Avelox 400mg IV q daily (active since 02/06/17) 02/08 - Per Dr. Mast - waiting on cultures, continue current Abx regimen 02/09 started Atrovent Q4H [facility] and Advair diskus Q12H [facility] Status: improving (3) ESRD (end stage renal disease) Assessment and Plan: Heel Pricker: Dr. Nguyen, help appreciated Received dialysis on 02/07/17 and 02/09/17 Calcium acetate Sensipar 30mg PO daily Status: Chronic (4) Diabetes mellitus Assessment and Plan: HgbA1c: 5.4 Lipid panel: TG 295, Cholesterol 148, LDL 78, HDL 23 Accuchecks QACHS Lantus 10 units SC daily ISS SC Status: Chronic (5) Abdominal pain Status: Resolved--> patient had bowel movement yesterday and feels better Abdominal US: hepatomegaly and hepatic steatosis, medical renal disease. multiple cysts in the kidneys as described above. 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 ENT (Behin) saw the patient and said to reconsult if rebleed and they will pack it Status: Acute (7) Prophylactic measure Assessment and Plan: Pepcid 20mg PO daily d/c heparin 5000 units subq 8hours secondary to epistaxis/thrombocytopenia Monitor weight daily Monitor intake and output Malt Specifications Control Assistant referral Renal Diet Status: Acute Even though the wheezing improved after initiating Advair and Atrovent, the crackles on physical exam were more prominent today so we will re-evaluate tomorrow for possible discharge in AM pending respiratory status overnight. Antibiotic treatment course for community acquired pneumonia 10 days total. Case discussed with Dr. Meagan Hernandez PGY1
[2017-02-10] MEDS: (Lantus) Insulin Glargine, Recombinant SC SCH (21:52)
[2017-02-11] MEDS: Ipratropium 17 mcg/puff-200 puff/12.5 gm HFA Inh IH SCH ×5 (00:22→16:47)
[2017-02-11] MEDS: Fluticasone-Salmeterol 250-50mcg Diskus INH SCH ×2 (07:57→19:30)
[2017-02-11 08:12] LABS: BASO # 0.1 K/uL (0.0-0.2); BASO % 0.8 % (0.0-2.0); EOS # 0.2 K/uL (0.0-0.7); EOS % 3.1 % (0.0-4.0); HEMOGLOBIN 11.3 g/dL (12.0-18.0); LYMPH # 0.9 K/uL (1.0-4.3); LYMPH % 14.6 % (20.0-40.0); MEAN CELL VOLUME 88.7 fL (80.0-94.0); MEAN CORPUSCULAR HEMOGLOBIN 29.3 pg (27.0-31.0); MEAN PLATELET VOLUME 8.6 fL (7.2-11.7); MONO # 0.5 K/uL (0.0-0.8); MONO % 7.9 % (0.0-10.0); NEUT # 4.5 K/uL (1.8-7.0); NEUT % 73.6 % (50.0-75.0); RBC 3.87 Mil/uL (4.40-5.90); RED CELL DISTRIBUTION WIDTH 15.5 % (11.5-14.5); WHITE BLOOD COUNT 6.2 K/uL (4.8-10.8)
[2017-02-11 08:19] LABS: ALBUMIN 3.5 g/dL (3.5-5.0)
[2017-02-11 08:22] LABS: ALB/GLOB RATIO 1.1 (1.0-2.1)
[2017-02-11] MEDS: Metoprolol Succinate 25 mg XL Tab PO SCH (09:30)
[2017-02-11] MEDS: guaiFENesin 600 mg ER Tab PO SCH ×2 (09:30→17:07)
[2017-02-11] MEDS: Moxifloxacin IV 400mg/250ml NS 400 MG/250 ML BAG IVPB SCH (09:30)
--- NOTE | 2017-02-11 11:46 | CP.PCM.PN ---
Subjective - Date & Time of Evaluation Date of Evaluation: 02/11/17 Time of Evaluation: 10:30 - Subjective Subjective: patient has no chest pain. Objective - Vital Signs/Intake and Output Vital Signs (last 24 hours): Temp Pulse Resp BP Pulse Ox 98.2 F 79 18 147/73 97 02/11/17 08:30 02/11/17 08:30 02/11/17 08:30 02/11/17 08:30 02/11/17 08:30 Intake and Output: 02/11/17 02/11/17 06:59 18:59 Intake Total 100 Balance 100 - Medications Medications: Current Medications Aspirin (Ecotrin) 81 mg PO DAILY [facility] Last Admin: 02/11/17 09:30 Dose: 81 mg Calcium Acetate (Phoslo) 667 mg PO AC [facility] Last Admin: 02/11/17 08:19 Dose: 667 mg Cinacalcet (Sensipar) 30 mg PO DAILY [facility] Last Admin: 02/11/17 09:30 Dose: 30 mg Famotidine (Pepcid) 20 mg PO DAILY [facility] Last Admin: 02/11/17 09:30 Dose: 20 mg Guaifenesin (Mucinex [place]) 600 mg PO BID [facility] Last Admin: 02/11/17 09:30 Dose: 600 mg Heparin Sodium (Porcine) (Heparin) 5,000 units SC Q8 [facility] Last Admin: 02/07/17 06:19 Dose: 5,000 units Moxifloxacin HCl (Avelox Iv 400mg/250ml Ns) 400 mg in 250 mls @ 167 mls/hr IVPB Q24H [facility] Last Admin: 02/11/17 09:30 Dose: 167 mls/hr Insulin Glargine (Lantus) 10 unit SC HS [facility] Last Admin: 02/10/17 21:52 Dose: 10 units Insulin Human Regular (Novolin R) 0 unit SC ACHS [facility] PRN Reason: Protocol Last Admin: 02/06/17 12:37 Dose: Not Given Ipratropium [place] (Atrovent Hfa) 2 puff IH RQ4 [facility] Last Admin: 02/11/17 11:31 Dose: 2 puff Metoprolol Succinate (Toprol Xl) 25 mg PO DAILY [facility] Last Admin: 02/11/17 09:30 Dose: 25 mg Rosuvastatin Calcium (Crestor) 10 mg PO HS [facility] Last Admin: 02/10/17 21:53 Dose: 10 mg Fluticasone/Salmeterol (Advair Diskus 250/50) 1 puff INH RQ12 [facility] Last Admin: 02/11/17 07:57 Dose: 1 puff Ticagrelor (Brilinta) 90 mg PO Q12H [facility] Last Admin: 02/11/17 04:04 Dose: 90 mg - Labs Labs: 02/11/17 08:00 02/11/17 08:00 PT 12.3 SECONDS (9.7-12.2) H 02/07/17 14:44 INR 1.1 02/07/17 14:44 APTT 29 SECONDS (21-34) 02/07/17 14:44 - Constitutional Appears: Non-toxic - Head Exam Head Exam: NORMAL INSPECTION - Eye Exam Eye Exam: Normal appearance - ENT Exam ENT Exam: Mucous Membranes Moist - Neck Exam Neck Exam: Full ROM - Respiratory Exam Respiratory Exam: NORMAL BREATHING PATTERN - Cardiovascular Exam Cardiovascular Exam: REGULAR RHYTHM - GI/Abdominal Exam GI & Abdominal Exam: Normal Bowel Sounds - Rectal Exam Rectal Exam: Deferred - Extremities Exam Extremities Exam: Pedal Edema - Back Exam Back Exam: NORMAL INSPECTION - Neurological Exam Neurological Exam: Alert - Psychiatric Exam Psychiatric exam: Normal Affect - Skin Skin Exam: Normal Color Assessment and Plan (1) Acute myocardial infarction involving left anterior descending (LAD) coronary artery Assessment & Plan: s/p PCI LAD. continue ASA Brilinta. Status: Acute (2) Diabetes mellitus Assessment & Plan: glucose control Status: Chronic (3) ESRD (end stage renal disease) Status: Chronic (4) HTN (hypertension) Assessment & Plan: add losartan Status: Chronic
--- NOTE | 2017-02-11 13:37 | CP.PCM.PN ---
Subjective - Date & Time of Evaluation Date of Evaluation: 02/11/17 Time of Evaluation: 12:00 - Subjective Subjective: PGY-[address] Rhodes Patient seen and examined at bedside. Patient reporting feeling generally well but still complains of post nasal drip. Patient denies fevers, chills, chest pain, SOB, abdominal pain, dysuria. Objective - Vital Signs/Intake and Output Vital Signs (last 24 hours): Temp Pulse Resp BP Pulse Ox 98.2 F 79 18 147/73 97 02/11/17 08:30 02/11/17 08:30 02/11/17 08:30 02/11/17 08:30 02/11/17 08:30 Intake and Output: 02/11/17 02/11/17 06:59 18:59 Intake Total 100 Balance 100 - Medications Medications: Current Medications Aspirin (Ecotrin) 81 mg PO DAILY [facility] Last Admin: 02/11/17 09:30 Dose: 81 mg Calcium Acetate (Phoslo) 667 mg PO AC [facility] Last Admin: 02/11/17 08:19 Dose: 667 mg Cinacalcet (Sensipar) 30 mg PO DAILY [facility] Last Admin: 02/11/17 09:30 Dose: 30 mg Famotidine (Pepcid) 20 mg PO DAILY [facility] Last Admin: 02/11/17 09:30 Dose: 20 mg Guaifenesin (Mucinex La) 600 mg PO BID [facility] Last Admin: 02/11/17 09:30 Dose: 600 mg Heparin Sodium (Porcine) (Heparin) 5,000 units SC Q8 [facility] Last Admin: 02/07/17 06:19 Dose: 5,000 units Moxifloxacin HCl (Avelox Iv 400mg/250ml Ns) 400 mg in 250 mls @ 167 mls/hr IVPB Q24H [facility] Last Admin: 02/11/17 09:30 Dose: 167 mls/hr Insulin Glargine (Lantus) 10 unit SC HS [facility] Last Admin: 02/10/17 21:52 Dose: 10 units Insulin Human Regular (Novolin R) 0 unit SC ACHS [facility] PRN Reason: Protocol Last Admin: 02/06/17 12:37 Dose: Not Given Ipratropium [place] (Atrovent Hfa) 2 puff IH RQ4 [facility] Last Admin: 02/11/17 11:31 Dose: 2 puff Losartan Potassium (Cozaar) 25 mg PO DAILY [facility] Metoprolol Succinate (Toprol Xl) 25 mg PO DAILY [facility] Last Admin: 02/11/17 09:30 Dose: 25 mg Rosuvastatin Calcium (Crestor) 10 mg PO HS [facility] Last Admin: 02/10/17 21:53 Dose: 10 mg Fluticasone/Salmeterol (Advair Diskus 250/50) 1 puff INH RQ12 [facility] Last Admin: 02/11/17 07:57 Dose: 1 puff Ticagrelor (Brilinta) 90 mg PO Q12H [facility] Last Admin: 02/11/17 04:04 Dose: 90 mg - Labs Labs: 02/11/17 08:00 02/11/17 08:00 PT 12.3 SECONDS (9.7-12.2) H 02/07/17 14:44 INR 1.1 02/07/17 14:44 APTT 29 SECONDS (21-34) 02/07/17 14:44 - Constitutional Appears: No Acute Distress - Head Exam Head Exam: ATRAUMATIC, NORMAL INSPECTION, NORMOCEPHALIC - Eye Exam Eye Exam: EOMI, PERRL - ENT Exam ENT Exam: Mucous Membranes Moist - Respiratory Exam Respiratory Exam: Rhonchi, Wheezes - Cardiovascular Exam Cardiovascular Exam: REGULAR RHYTHM, +S1, +S2 - GI/Abdominal Exam GI & Abdominal Exam: Soft, Normal Bowel Sounds. absent: Tenderness - Extremities Exam Extremities Exam: absent: Tenderness - Neurological Exam Neurological Exam: Alert, Awake, Oriented x3 - Skin Skin Exam: Dry, Intact, Normal Color, Warm Assessment and Plan - Assessment and Plan (Free Text) Plan: (1) ACS (acute coronary syndrome) New LBBB Coronary Artery Disease Assessment and Plan: Previously Admitted to ICU Patient was code heart; transferred from [place] for shortness of breathe, LBBB , and positive troponin Cardiology: Dr. Montes De Oca, help appreciated Cardiology (code heart): Dr. Fuentes, help appreciated Transferred out from ICU on 02/06/17 Risk factors: DM, HTN, CAD, Prior PR, ESRD ASA 81mg PO daily Brillinta 90mg PO BID started 02/05/17 Toprol XL 25mg PO daily Crestor 10mg PO HS HgbA1c: 5.4 Lipid panel: TG 295, Cholesterol 148, LDL 78, HDL 23 Echo: f/u Prior Echo (12/26/16): left ventricle is mildly dilated. borderline concentric left ventricular hypertrophy. systolic function moderately to severely impaired. EF; 35-40%, apical hypokinesis, No left ventricle thrombus noted on this study PATRICIA inhibitor held secondary to ESRD 02/08 - [email or web address] - continue ASA/Brilinta, cont glucose control Status: Acute (2) Pneumonia Assessment and Plan: Infectious disease consult (Dr. Mast) for pneumonia in light of elevated procalcitonin CXR (02/05/17): prominent diffuse increased interstitial lung markings bilaterally; Superimposed confluent consolidate opacity throughout the left lung and within the right mid to lower lung zone. Cardiomegaly CXR (02/06/17): persistent prominent consolidate changes within the bilateral lung fielnds most prominent at the right upper and lower lung zones as well as left hilar region and left lung base CXR (02/07/17): bibasilar aispace disease may represent atelectasis or pneumonia. persistent moderate congestive heart failure Mycoplasma IgM: negative; unable to Strep/Legionella because patient is anuric Former smoker--> tobacco cessation provided; quit 15 years ago Echocardiogram completed-->awaiting report Prior hospitalization: systolic/diastolic CHF and pneumonia Start Avelox 400mg IV q daily (active since 02/06/17). 02/08 - Per Dr. Mast - waiting on cultures, continue current Abx regimen 02/09 started Atrovent Q4H [facility] and Advair diskus Q12H [facility] 02/11/17 Replaced Avelox 400 mg IV with Avelox 400mg PO daily. 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 multiple cysts in the kidneys as described above. 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 ENT (Kasia) saw the patient and said to reconsult if rebleed and they will pack it Status: Acute (7) Prophylactic measure Assessment and Plan: Pepcid 20mg PO daily d/c heparin 5000 units subq 8hours secondary to epistaxis/thrombocytopenia Monitor weight daily Monitor intake and output [employer] Dean referral Renal Diet Status: Acute 02/10:Even though the wheezing improved after initiating Advair and Atrovent, the crackles on physical exam were more prominent today so we will re-evaluate respiratory status overnight. 02/11: Patient still has wheezing and rhonchi. He will undergo hemodialysis tomorrow and be discharged afterwards. Avelox was switched from IV to PO today in anticipation of discharge. Antibiotic treatment course for community acquired pneumonia 10 days total. Case discussed with Dr. Meagan Hernandez PGY1
--- NOTE | 2017-02-11 14:51 | CP.PCM.PN ---
Subjective - Date & Time of Evaluation Date of Evaluation: 02/11/17 Time of Evaluation: 06:00 - Subjective Subjective: less cough less sob alert / responsive NAD Objective - Vital Signs/Intake and Output Vital Signs (last 24 hours): Temp Pulse Resp BP Pulse Ox 98.2 F 79 18 147/73 97 02/11/17 08:30 02/11/17 08:30 02/11/17 08:30 02/11/17 08:30 02/11/17 08:30 Intake and Output: 02/11/17 02/11/17 06:59 18:59 Intake Total 100 Balance 100 - Medications Medications: Current Medications Aspirin (Ecotrin) 81 mg PO DAILY [facility] Last Admin: 02/11/17 09:30 Dose: 81 mg Calcium Acetate (Phoslo) 667 mg PO AC [facility] Last Admin: 02/11/17 13:50 Dose: 667 mg Cinacalcet (Sensipar) 30 mg PO DAILY [facility] Last Admin: 02/11/17 09:30 Dose: 30 mg Famotidine (Pepcid) 20 mg PO DAILY [facility] Last Admin: 02/11/17 09:30 Dose: 20 mg Guaifenesin (Mucinex La) 600 mg PO BID [facility] Last Admin: 02/11/17 09:30 Dose: 600 mg Heparin Sodium (Porcine) (Heparin) 5,000 units SC Q8 [facility] Last Admin: 02/07/17 06:19 Dose: 5,000 units Moxifloxacin HCl (Avelox Iv 400mg/250ml Ns) 400 mg in 250 mls @ 167 mls/hr IVPB Q24H [facility] Last Admin: 02/11/17 09:30 Dose: 167 mls/hr Insulin Glargine (Lantus) 10 unit SC HS [facility] Last Admin: 02/10/17 21:52 Dose: 10 units Insulin Human Regular (Novolin R) 0 unit SC ACHS [facility] PRN Reason: Protocol Last Admin: 02/06/17 12:37 Dose: Not Given Ipratropium [place] (Atrovent Hfa) 2 puff IH RQ4 [facility] Last Admin: 02/11/17 11:31 Dose: 2 puff Losartan Potassium (Cozaar) 25 mg PO DAILY [facility] Last Admin: 02/11/17 13:50 Dose: 25 mg Metoprolol Succinate (Toprol Xl) 25 mg PO DAILY [facility] Last Admin: 02/11/17 09:30 Dose: 25 mg Rosuvastatin Calcium (Crestor) 10 mg PO HS [facility] Last Admin: 02/10/17 21:53 Dose: 10 mg Fluticasone/Salmeterol (Advair Diskus 250/50) 1 puff INH RQ12 [facility] Last Admin: 02/11/17 07:57 Dose: 1 puff Ticagrelor (Brilinta) 90 mg PO Q12H [facility] Last Admin: 02/11/17 04:04 Dose: 90 mg - Labs Labs: 02/11/17 08:00 02/11/17 08:00 PT 12.3 SECONDS (9.7-12.2) H 02/07/17 14:44 INR 1.1 02/07/17 14:44 APTT 29 SECONDS (21-34) 02/07/17 14:44 - Constitutional Appears: Non-toxic, Chronically Ill - Head Exam Head Exam: NORMOCEPHALIC - Eye Exam Eye Exam: PERRL - ENT Exam ENT Exam: Mucous Membranes Dry, Normal External Ear Exam - Respiratory Exam Respiratory Exam: Decreased Breath Sounds, Clear to Ausculation Bilateral - Cardiovascular Exam Cardiovascular Exam: REGULAR RHYTHM, +S1, +S2 - GI/Abdominal Exam GI & Abdominal Exam: Distended, Soft - Rectal Exam Rectal Exam: Deferred - Exam Exam: NORMAL INSPECTION - Extremities Exam Extremities Exam: absent: Pedal Edema - Back Exam Back Exam: absent: CVA tenderness (L), CVA tenderness (R) - Neurological Exam Neurological Exam: Alert, Awake, Oriented x3 Assessment and Plan (1) Pneumonia Status: Acute (2) Pneumonia Status: Acute (3) Acute myocardial infarction involving left anterior descending (LAD) coronary artery Status: Acute (4) CAD (coronary artery disease) Status: Acute (5) S/P angioplasty with stent Status: Acute (6) Status post cardiac catheterization Status: Acute (7) Type 2 diabetes mellitus with diabetic nephropathy Status: Acute (8) ACS (acute coronary syndrome) Status: Acute (9) CHF (congestive heart failure) Status: Acute (10) CKD (chronic kidney disease) stage V requiring chronic dialysis Status: Acute - Assessment and Plan (Free Text) Assessment: improving on empiric rx for pneumonia\ cont rx
[2017-02-11] MEDS: Albuterol-Ipratrop 3 mg / 0.5 (3 ml) UD INH SCH (19:29)
[2017-02-11] MEDS: (Lantus) Insulin Glargine, Recombinant SC SCH (22:27)
--- NOTE | 2017-02-11 23:32 | CARD ---
APPROVED REPORT EXAM: Two-dimensional and M-mode echocardiogram with Doppler and color Doppler. Other Information Quality : GoodRhythm : NSR INDICATION Abnormal EKG/Arrhythmia CAD Congestive Heart Failure SOB RISK FACTORS Hypertension M-Mode DIMENSIONS RVDd1.95 (2.1-3.2cm)Left Atrium (MM)3.75 (2.5-4.0cm) IVSd1.52 (0.7-1.1cm)Aortic Root2.19 (2.2-3.7cm) LVDd5.82 (4.0-5.6cm)Aortic Cusp Exc.1.25 (1.5-2.0cm) PWd2.15 (0.7-1.1cm)FS (%) 24 % LVDs4.41 (2.0-3.8cm)LVEF (%)47 (>50%) Aortic Valve AoV Peak Lxewdgbs73.1cm/sAoV VTI25.6cmAO Peak GR.2mmHg LVOT Peak Wrnmvtax039.0cm/Hai Mean GR.4mmHg Mitral Valve MV E Tsvqsnuh46.8cm/sMV A Prmqwrtw220.5cm/sE/A ratio0.6 TDI E/Lateral E'0.0E/Medial E'0.0 Pulmonary Valve PV Peak Tfyuhqic511.9cm/sPV Peak Grad.4mmHg Tricuspid Valve TR Peak Dcjwjmov804ps/sTR Peak Gr.9mmHg <Conclusion> Technically very limited study Left ventricle: thickness: asymmetric thickening; size: dilated; overall ejection fraction: 35%: diastolic filling pressures: elevated Mitral valve: annulus: normal: leaflets: normal: excursion: normal; no significant trans-mitral gradient: no significant incompetence: left atrium: normal Aortic valve: leaflets:thick and calcified: excursion: normal; no significant trans-aortic gradient: No significant incompetence: aortic root: normal Right sided Structures: Pulmonary valve: normal; no significant incompetence; Tricuspid valve: normal; no significant incompetence: Intra-cardiac hemodynamics: pulmonary systolic pressures: normal; central venous pressures: normal No pericardial effusion
[2017-02-12] MEDS: Albuterol-Ipratrop 3 mg / 0.5 (3 ml) UD INH SCH ×4 (01:58→19:24)
[2017-02-12] MEDS: Fluticasone-Salmeterol 250-50mcg Diskus INH SCH ×2 (07:30→19:24)
[2017-02-12 10:03] LABS: ALBUMIN 3.4 g/dL (3.5-5.0)
[2017-02-12 10:07] LABS: ALB/GLOB RATIO 1.2 (1.0-2.1); CALCIUM 8.6 mg/dl (8.6-10.4)
[2017-02-12 10:13] LABS: BASO % 0.6 % (0.0-2.0); CK-MB 2.86 ng/mL (0.0-3.38); EOS # 0.2 K/uL (0.0-0.7); EOS % 2.5 % (0.0-4.0); HEMOGLOBIN 10.3 g/dL (12.0-18.0); LYMPH # 0.8 K/uL (1.0-4.3); LYMPH % 12.8 % (20.0-40.0); MEAN CELL VOLUME 88.6 fL (80.0-94.0); MEAN CORPUSCULAR HEMOGLOBIN 28.6 pg (27.0-31.0); MEAN CORPUSCULAR HGB CONC 32.3 g/dL (33.0-37.0); MEAN PLATELET VOLUME 8.6 fL (7.2-11.7); MONO # 0.5 K/uL (0.0-0.8); MONO % 7.5 % (0.0-10.0); NEUT # 4.8 K/uL (1.8-7.0); NEUT % 76.6 % (50.0-75.0); RBC 3.6 Mil/uL (4.40-5.90); RED CELL DISTRIBUTION WIDTH 15.2 % (11.5-14.5); WHITE BLOOD COUNT 6.3 K/uL (4.8-10.8)
--- NOTE | 2017-02-12 10:33 | CP.PCM.PN ---
<Sulaiman Curiel - Last Filed: 02/12/17 19:19> Subjective - Date & Time of Evaluation Date of Evaluation: 02/12/17 Time of Evaluation: 10:31 - Subjective Subjective: PGY-[address] Portillo HPI: Patient was seen and examined at bedside. Currently in NAD. Denies any current chest pain, palpitations or SOB this morning. Patient does, however, admit to having an episode of SOB overnight. As per RN, patient had a run of VTach overnight at 3:12 on telemetry. Episode lasted approx. 10sec in duration with spontaneous resolve. No other events were noted on telemetry for the rest of the night. At the moment, patient is without complaints. Denies any fever, chills, n/v/d, constipation, abdominal pain or leg pain. Objective - Vital Signs/Intake and Output Vital Signs (last 24 hours): Temp Pulse Resp BP Pulse Ox 97.6 F 76 16 117/57 L 100 02/12/17 09:30 02/12/17 09:45 02/12/17 09:45 02/12/17 09:45 02/12/17 09:45 Intake and Output: 02/12/17 02/12/17 06:59 18:59 Intake Total 150 Balance 150 - Medications Medications: Current Medications Albuterol/Ipratropium (Duoneb 3 Mg/0.5 Mg (3 Ml) Ud) 3 ml INH RQ6 [facility] Last Admin: 02/12/17 01:58 Dose: 3 ml Aspirin (Ecotrin) 81 mg PO DAILY [facility] Last Admin: 02/11/17 09:30 Dose: 81 mg Calcium Acetate (Phoslo) 667 mg PO AC [facility] Last Admin: 02/12/17 08:56 Dose: 667 mg Cinacalcet (Sensipar) 30 mg PO DAILY [facility] Last Admin: 02/11/17 09:30 Dose: 30 mg Famotidine (Pepcid) 20 mg PO DAILY [facility] Last Admin: 02/11/17 09:30 Dose: 20 mg Guaifenesin (Mucinex La) 600 mg PO BID [facility] Last Admin: 02/11/17 17:07 Dose: 600 mg Heparin Sodium (Porcine) (Heparin) 5,000 units SC Q8 [facility] Last Admin: 02/07/17 06:19 Dose: 5,000 units Insulin Glargine (Lantus) 10 unit SC [facility] Last Admin: 02/11/17 22:27 Dose: 10 units Insulin Human Regular (Novolin R) 0 unit SC [facility] PRN Reason: Protocol Last Admin: 02/06/17 12:37 Dose: Not Given Losartan Potassium (Cozaar) 25 mg PO DAILY [facility] Last Admin: 02/11/17 13:50 Dose: 25 mg Metoprolol Succinate (Toprol Xl) 25 mg PO DAILY [facility] Last Admin: 02/11/17 09:30 Dose: 25 mg Moxifloxacin HCl (Avelox) 400 mg PO DAILY [facility] Last Admin: 02/11/17 17:07 Dose: 400 mg Rosuvastatin Calcium (Crestor) 10 mg PO HS [facility] Last Admin: 02/11/17 22:27 Dose: 10 mg Fluticasone/Salmeterol (Advair Diskus 250/50) 1 puff INH RQ12 [facility] Last Admin: 02/11/17 19:30 Dose: 1 puff Ticagrelor (Brilinta) 90 mg PO Q12H [facility] Last Admin: 02/12/17 04:47 Dose: 90 mg - Labs Labs: 02/12/17 09:46 02/12/17 09:46 PT 12.3 SECONDS (9.7-12.2) H 02/07/17 14:44 INR 1.1 02/07/17 14:44 APTT 29 SECONDS (21-34) 02/07/17 14:44 - Constitutional Appears: Well, No Acute Distress - Head Exam Head Exam: ATRAUMATIC, NORMAL INSPECTION, NORMOCEPHALIC - Eye Exam Eye Exam: EOMI - ENT Exam ENT Exam: Mucous Membranes Moist - Respiratory Exam Respiratory Exam: Clear to Ausculation Bilateral, NORMAL BREATHING PATTERN - Cardiovascular Exam Cardiovascular Exam: REGULAR RHYTHM, RRR. absent: Clicks, Gallop, JVD, Murmur - GI/Abdominal Exam GI & Abdominal Exam: Soft, Normal Bowel Sounds. absent: Distended, Tenderness - Extremities Exam Extremities Exam: absent: Joint Swelling - Neurological Exam Neurological Exam: Alert, Awake, Oriented x3 - Psychiatric Exam Psychiatric exam: Normal Affect, Normal Mood - Skin Skin Exam: Dry, Intact, Normal Color, Warm Assessment and Plan - Assessment and Plan (Free Text) Assessment: (1) ACS (acute coronary syndrome) New LBBB Coronary Artery Disease Assessment and Plan: Previously Admitted to ICU Patient was code heart; transferred from [place] for shortness of breathe, LBBB , and positive troponin Cardiology: Dr. Montes De Oca, help appreciated Cardiology (code heart): Dr. Fuentes, help appreciated Transferred out from ICU on 02/06/17 Risk factors: DM, HTN, CAD, Prior [place], ESRD ASA 81mg PO daily Brillinta 90mg PO BID started 02/05/17 Toprol XL 25mg PO daily Crestor 10mg PO HS HgbA1c: 5.4 Lipid panel: TG 295, Cholesterol 148, LDL 78, HDL 23 Echo: f/u Prior Echo (12/26/16): left ventricle is mildly dilated. borderline concentric left ventricular hypertrophy. systolic function moderately to severely impaired. EF; 35-40%, apical hypokinesis, No left ventricle thrombus noted on this study PATRICIA inhibitor held secondary to ESRD 02/08 - [facility] - continue ASA/Brilinta, cont glucose control Status: Acute (2) Pneumonia Assessment and Plan: Infectious disease consult (Dr. Mast) for pneumonia in light of elevated procalcitonin CXR (02/05/17): prominent diffuse increased interstitial lung markings bilaterally; Superimposed confluent consolidate opacity throughout the left lung and within the right mid to lower lung zone. Cardiomegaly CXR (02/06/17): persistent prominent consolidate changes within the bilateral lung fielnds most prominent at the right upper and lower lung zones as well as left hilar region and left lung base CXR (02/07/17): bibasilar aispace disease may represent atelectasis or pneumonia. persistent moderate congestive heart failure Mycoplasma IgM: negative; unable to Strep/Legionella because patient is anuric Former smoker--> tobacco cessation provided; quit 15 years ago Echo: EF 35%, No valvular abnormalities Prior hospitalization: systolic/diastolic CHF and pneumonia Start Avelox 400mg IV q daily (active since 02/06/17). 02/08 - Per Dr. Mast - waiting on cultures, continue current Abx regimen 02/09 started Atrovent Q4H [facility] and Advair diskus Q12H [facility] 02/11/17 Replaced Avelox 400 mg IV with Avelox 400mg PO daily. 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 multiple cysts in the kidneys as described above. 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 ENT (Kasia) saw the patient and said to reconsult if rebleed and they will pack it Status: Acute (7) Vtach - Resolved Run of Vtach on 02/12 Consulted Cards - Dobesh - artifact, not Vtach Dobesh reccs - if CHF doesn't resolve in 90 days consider ICD (8) Prophylactic measure Assessment and Plan: Pepcid 20mg PO daily d/c heparin 5000 units subq 8hours secondary to epistaxis/thrombocytopenia Monitor weight daily Monitor intake and output Interior Designer referral Renal Diet Status: Acute F/U case management to see if still approved for Dialysis at [facility] <Horacio Portillo - Last Filed: 02/13/17 21:01> Objective - Vital Signs/Intake and Output Vital Signs (last 24 hours): Temp Pulse Resp BP Pulse Ox 97.9 F 74 18 122/65 99 02/13/17 07:30 02/13/17 11:54 02/13/17 07:30 02/13/17 07:30 02/13/17 11:54 - Labs Labs: 02/13/17 07:16 02/13/17 07:16 PT 12.3 SECONDS (9.7-12.2) H 02/07/17 14:44 INR 1.1 02/07/17 14:44 APTT 29 SECONDS (21-34) 02/07/17 14:44 Attending/Attestation - Attestation I have personally seen and examined this patient.: Yes I have fully participated in the care of the patient.: Yes I have reviewed all pertinent clinical information, including history, physical exam and plan: Yes Notes (Text): 02/13/17 21:00 Patient was seen and examined on 02/12/17 Exam, assessment and plan were thoroughly gone over with the resident. Horacio Portillo D.O.
--- NOTE | 2017-02-12 11:49 | CP.PCM.PN ---
Subjective - Date & Time of Evaluation Date of Evaluation: 02/12/17 Time of Evaluation: 11:46 - Subjective Subjective: Seen at dialysis Had palpitations- reportedly had ventricular arrythmias Now BP controlled Will try to UF 2000ml No n, v, CPs now, SOB, diarrhea HR- 80-90s now, regular Objective - Vital Signs/Intake and Output Vital Signs (last 24 hours): Temp Pulse Resp BP Pulse Ox 97.6 F 27 L 16 117/57 L 100 02/12/17 09:30 02/12/17 10:17 02/12/17 09:45 02/12/17 09:45 02/12/17 09:45 Intake and Output: 02/12/17 02/12/17 06:59 18:59 Intake Total 150 Balance 150 - Medications Medications: Current Medications Albuterol/Ipratropium (Duoneb 3 Mg/0.5 Mg (3 Ml) Ud) 3 ml INH RQ6 [facility] Last Admin: 02/12/17 01:58 Dose: 3 ml Aspirin (Ecotrin) 81 mg PO DAILY [facility] Last Admin: 02/11/17 09:30 Dose: 81 mg Calcium Acetate (Phoslo) 667 mg PO TID [facility] Cinacalcet (Sensipar) 30 mg PO DAILY [facility] Last Admin: 02/11/17 09:30 Dose: 30 mg Famotidine (Pepcid) 20 mg PO DAILY [facility] Last Admin: 02/11/17 09:30 Dose: 20 mg Guaifenesin (Mucinex [place]) 600 mg PO BID [facility] Last Admin: 02/11/17 17:07 Dose: 600 mg Heparin Sodium (Porcine) (Heparin) 5,000 units SC Q8 [facility] Last Admin: 02/07/17 06:19 Dose: 5,000 units Insulin Glargine (Lantus) 10 unit SC HS [facility] Last Admin: 02/11/17 22:27 Dose: 10 units Insulin Human Regular (Novolin R) 0 unit SC ACHS [facility] PRN Reason: Protocol Last Admin: 02/06/17 12:37 Dose: Not Given Losartan Potassium (Cozaar) 25 mg PO DAILY [facility] Last Admin: 02/11/17 13:50 Dose: 25 mg Metoprolol Succinate (Toprol Xl) 25 mg PO DAILY [facility] Last Admin: 02/11/17 09:30 Dose: 25 mg Moxifloxacin HCl (Avelox) 400 mg PO DAILY [facility] Last Admin: 02/11/17 17:07 Dose: 400 mg Rosuvastatin Calcium (Crestor) 10 mg PO HS [facility] Last Admin: 02/11/17 22:27 Dose: 10 mg Fluticasone/Salmeterol (Advair Diskus 250/50) 1 puff INH RQ12 [facility] Last Admin: 02/11/17 19:30 Dose: 1 puff Ticagrelor (Brilinta) 90 mg PO Q12H [facility] Last Admin: 02/12/17 04:47 Dose: 90 mg - Labs Labs: 02/12/17 09:46 02/12/17 09:46 PT 12.3 SECONDS (9.7-12.2) H 02/07/17 14:44 INR 1.1 02/07/17 14:44 APTT 29 SECONDS (21-34) 02/07/17 14:44 - Constitutional Appears: Non-toxic, Chronically Ill - Head Exam Head Exam: ATRAUMATIC, NORMAL INSPECTION - Eye Exam Eye Exam: EOMI, Normal appearance - Neck Exam Neck Exam: Normal Inspection. absent: Tenderness - Respiratory Exam Respiratory Exam: Clear to Ausculation Bilateral, NORMAL BREATHING PATTERN - Cardiovascular Exam Cardiovascular Exam: REGULAR RHYTHM, +S1 - GI/Abdominal Exam GI & Abdominal Exam: Soft. absent: Tenderness - Extremities Exam Extremities Exam: Normal Inspection. absent: Tenderness - Neurological Exam Neurological Exam: Alert, CN II-XII Intact - Skin Skin Exam: Dry, Warm Assessment and Plan (1) CAD (coronary artery disease) Status: Acute (2) Type 2 diabetes mellitus with diabetic nephropathy Status: Acute (3) CHF (congestive heart failure) Status: Acute (4) Diabetes mellitus Status: Chronic (5) ESRD (end stage renal disease) Status: Chronic (6) HTN (hypertension) Status: Chronic - Assessment and Plan (Free Text) Plan: Dialysis now- UF 2000ml follow up chemistries cardiology follow up for arrythmias
[2017-02-12] MEDS: guaiFENesin 600 mg ER Tab PO SCH ×2 (11:58→17:20)
[2017-02-12] MEDS: Metoprolol Succinate 25 mg XL Tab PO SCH (11:58)
--- NOTE | 2017-02-12 17:33 | CP.PCM.PN ---
Subjective - Date & Time of Evaluation Date of Evaluation: 02/12/17 Time of Evaluation: 17:00 - Subjective Subjective: Patient had an episode of dyspnea at about 3am. Telemetry revealed wide complexed tachycardia. Patient denied chest pain. Objective - Vital Signs/Intake and Output Vital Signs (last 24 hours): Temp Pulse Resp BP Pulse Ox 98.2 F 78 20 97/49 L 98 02/12/17 16:02 02/12/17 16:02 02/12/17 16:02 02/12/17 16:02 02/12/17 16:02 Intake and Output: 02/12/17 02/12/17 06:59 18:59 Intake Total 150 Balance 150 - Medications Medications: Current Medications Albuterol/Ipratropium (Duoneb 3 Mg/0.5 Mg (3 Ml) Ud) 3 ml INH RQ6 [facility] Last Admin: 02/12/17 13:22 Dose: Not Given Aspirin (Ecotrin) 81 mg PO DAILY [facility] Last Admin: 02/12/17 11:58 Dose: Not Given Calcium Acetate (Phoslo) 667 mg PO TIDCC [facility] Last Admin: 02/12/17 17:20 Dose: 667 mg Cinacalcet (Sensipar) 30 mg PO DAILY [facility] Last Admin: 02/12/17 11:58 Dose: Not Given Famotidine (Pepcid) 20 mg PO DAILY [facility] Last Admin: 02/12/17 11:58 Dose: Not Given Guaifenesin (Mucinex La) 600 mg PO BID [facility] Last Admin: 02/12/17 17:20 Dose: 600 mg Heparin Sodium (Porcine) (Heparin) 5,000 units SC Q8 [facility] Last Admin: 02/07/17 06:19 Dose: 5,000 units Insulin Glargine (Lantus) 10 unit SC HS [facility] Last Admin: 02/11/17 22:27 Dose: 10 units Insulin Human Regular (Novolin R) 0 unit SC ACHS [facility] PRN Reason: Protocol Last Admin: 02/06/17 12:37 Dose: Not Given Losartan Potassium (Cozaar) 25 mg PO DAILY [facility] Last Admin: 02/12/17 11:58 Dose: Not Given Metoprolol Succinate (Toprol Xl) 25 mg PO DAILY [facility] Last Admin: 02/12/17 11:58 Dose: Not Given Moxifloxacin HCl (Avelox) 400 mg PO DAILY [facility] Last Admin: 02/12/17 14:24 Dose: 400 mg Rosuvastatin Calcium (Crestor) 10 mg PO HS [facility] Last Admin: 02/11/17 22:27 Dose: 10 mg Fluticasone/Salmeterol (Advair Diskus 250/50) 1 puff INH RQ12 [facility] Last Admin: 02/12/17 07:30 Dose: Not Given Ticagrelor (Brilinta) 90 mg PO Q12H [facility] Last Admin: 02/12/17 17:20 Dose: 90 mg - Labs Labs: 02/12/17 09:46 02/12/17 09:46 PT 12.3 SECONDS (9.7-12.2) H 02/07/17 14:44 INR 1.1 02/07/17 14:44 APTT 29 SECONDS (21-34) 02/07/17 14:44 - Constitutional Appears: Non-toxic - Head Exam Head Exam: NORMAL INSPECTION - Eye Exam Eye Exam: Normal appearance - ENT Exam ENT Exam: Mucous Membranes Moist - Neck Exam Neck Exam: Full ROM - Respiratory Exam Respiratory Exam: Decreased Breath Sounds - Cardiovascular Exam Cardiovascular Exam: REGULAR RHYTHM - GI/Abdominal Exam GI & Abdominal Exam: Normal Bowel Sounds - Rectal Exam Rectal Exam: Deferred - Extremities Exam Extremities Exam: absent: Pedal Edema - Back Exam Back Exam: NORMAL INSPECTION - Neurological Exam Neurological Exam: Alert - Psychiatric Exam Psychiatric exam: Normal Affect - Skin Skin Exam: Normal Color Assessment and Plan (1) Acute myocardial infarction involving left anterior descending (LAD) coronary artery Assessment & Plan: will continue antiplatelet therapy. telemetry noted. unclear if there is a component of artifact. EP evaluation by Dr. Carlson Status: Acute (2) Diabetes mellitus Assessment & Plan: glucose control Status: Chronic (3) ESRD (end stage renal disease) Assessment & Plan: dialysis Status: Chronic (4) HTN (hypertension) Assessment & Plan: controlled Status: Chronic
--- NOTE | 2017-02-12 18:44 | CP.PCM.CON ---
History of Present Illness - History of Present Illness History of Present Illness: Dr. Martha Montes De Oca has asked me to see this patient with wide complex tachycradia. This is a 77 yo with a CV histoyr of CAD, previous PCI, ESRD on HD HTN, hypercholesterolemia who presnted with SOB and abdominal discomfort. He previously was known to have a normal EF and narrow QRS. He underwent PCI in December 2016. Now admitted and found to have acute NC with new LBBB. PCI performed with intervention and MADELEINE to the proximal LAD. EF is now reduced at 35%. Telemetry revealed WCT. He is requiring HD. Now hemodynamically stable. I discussed things with his daughter via telephoone. He gets shortness of breath located in chest lasting seconds at a time with minimal exertion. No associated dizziness. No modifying factors. Medical Hx: CAD, s/p PCI, HTN,hypercholesterolemia, NC, ESRD on HD, anemia, LBBB , s/p CCY, s/p hernia repair. Social Hx: (+) tobacco (recently quit), no alcohol Family Hx: negative for premature CAD or sudden . tele 02/12/17 312 WCT is reported. on closer inspection is clearly artifact with sinus rhythm and a PVC marching through. EK02/05/17: ST at 107. -36 176/144/493 DIO[place]. LBBB. 07/19/16: SR withmild IVCD Cath 02/04/17: Echo 02/05/17 EF 35% LA 3.7 LV 5.8/4.4 07/19/16 Normal EF No valvular disease Review of Systems - Constitutional Constitutional: absent: Anorexia, Chills - EENT Eyes: absent: Blind Spots, Blurred Vision Nose/Mouth/Throat: absent: Epistaxis, Nasal Congestion - Cardiovascular Cardiovascular: Dyspnea on Exertion. absent: Edema, Irregular Heart Rhythm - Respiratory Respiratory: Dyspnea - Gastrointestinal Gastrointestinal: absent: Abdominal Pain, Constipation, Diarrhea - Genitourinary Genitourinary: Other (HD) - Musculoskeletal Musculoskeletal: absent: Abnormal Gait, Arthralgias, Atrophy - Integumentary Integumentary: absent: Acne, Alopecia - Neurological Neurological: absent: Abnormal Gait, Abnormal Hearing, Disequilibrium, Dizziness - Psychiatric Psychiatric: absent: Abnormal Sleep Pattern, Anxiety, Auditory Hallucinations - Endocrine Endocrine: absent: Cold Intolorance, Deepening of Voice, Heat Intolorance - Hematologic/Lymphatic Hematologic: absent: Easy Bleeding, Easy Bruising Past Patient History - Infectious Disease Hx of Infectious Diseases: None - Tetanus Immunizations Tetanus Immunization: Unknown - Past Medical History & Family History Past Medical History?: Yes - Past Social History Smoking Status: Former Smoker Chewing Tobacco Use: No Cigar Use: No Occupation: retired Alcohol: Occasional Drugs: Denies Home Situation {Lives}: Alone - CARDIAC Hx Cardiac Disorders: (CAD) - PULMONARY Hx Respiratory Disorders: Yes - NEUROLOGICAL Hx Neurological Disorder: No - HEENT Hx HEENT Problems: Yes - RENAL Hx Chronic Kidney Disease: Yes Date of Last Dialysis Treatment: 02/04/17 Hx Kidney Stones: No - ENDOCRINE/METABOLIC Hx Endocrine Disorders: Yes Hx Diabetes Mellitus Type 2: Yes - HEMATOLOGICAL/ONCOLOGICAL Hx Human Immunodeficiency Virus (HIV): No - INTEGUMENTARY Hx Dermatological Problems: Yes - MUSCULOSKELETAL/RHEUMATOLOGICAL Hx Musculoskeletal Disorders: No - GASTROINTESTINAL Hx Gastrointestinal Disorders: No - GENITOURINARY/GYNECOLOGICAL Hx Genitourinary Disorders: No - PSYCHIATRIC Hx Psychophysiologic Disorder: No Hx Substance Use: No - SURGICAL HISTORY Hx Arteriovenous Shunt: Yes Hx Cardiac Catheterization: Yes Hx Coronary Stent: Yes - ANESTHESIA Hx Anesthesia: Yes Hx Anesthesia Reactions: No Hx Malignant Hyperthermia: No Meds Allergies/Adverse Reactions: Allergies Allergy/AdvReac Type Severity Reaction Status Date / Time Sulfa (Sulfonamide Allergy PAIN Verified 12/25/16 01:58 Antibiotics) milk AdvReac NAUSEA Verified 12/25/16 01:58 - Medications Medications: Current Medications Albuterol/Ipratropium (Duoneb 3 Mg/0.5 Mg (3 Ml) Ud) 3 ml INH RQ6 [facility] Last Admin: 02/12/17 13:22 Dose: Not Given Aspirin (Ecotrin) 81 mg PO DAILY [facility] Last Admin: 02/12/17 11:58 Dose: Not Given Calcium Acetate (Phoslo) 667 mg PO TIDCC [facility] Last Admin: 02/12/17 17:20 Dose: 667 mg Cinacalcet (Sensipar) 30 mg PO DAILY [facility] Last Admin: 02/12/17 11:58 Dose: Not Given Famotidine (Pepcid) 20 mg PO DAILY [facility] Last Admin: 02/12/17 11:58 Dose: Not Given Guaifenesin (Mucinex La) 600 mg PO BID [facility] Last Admin: 02/12/17 17:20 Dose: 600 mg Heparin Sodium (Porcine) (Heparin) 5,000 units SC Q8 [facility] Last Admin: 02/07/17 06:19 Dose: 5,000 units Insulin Glargine (Lantus) 10 unit SC HS [facility] Last Admin: 02/11/17 22:27 Dose: 10 units Insulin Human Regular (Novolin R) 0 unit SC ACHS [facility] PRN Reason: Protocol Last Admin: 02/06/17 12:37 Dose: Not Given Losartan Potassium (Cozaar) 25 mg PO DAILY [facility] Last Admin: 02/12/17 11:58 Dose: Not Given Metoprolol Succinate (Toprol Xl) 25 mg PO DAILY [facility] Last Admin: 02/12/17 11:58 Dose: Not Given Moxifloxacin HCl (Avelox) 400 mg PO DAILY [facility] Last Admin: 02/12/17 14:24 Dose: 400 mg Rosuvastatin Calcium (Crestor) 10 mg PO HS [facility] Last Admin: 02/11/17 22:27 Dose: 10 mg Fluticasone/Salmeterol (Advair Diskus 250/50) 1 puff INH RQ12 [facility] Last Admin: 02/12/17 07:30 Dose: Not Given Ticagrelor (Brilinta) 90 mg PO Q12H [facility] Last Admin: 02/12/17 17:20 Dose: 90 mg Physical Exam - Constitutional Appears: Well, Non-toxic - Head Exam Head Exam: ATRAUMATIC, NORMAL INSPECTION - Eye Exam Eye Exam: EOMI, Normal appearance, PERRL Pupil Exam: NORMAL ACCOMODATION, PERRL - ENT Exam ENT Exam: Mucous Membranes Moist, Normal Exam - Neck Exam Neck exam: Positive for: Full Rom - Respiratory Exam Respiratory Exam: Clear to Auscultation Bilateral Additional comments: moderate topoor air exchange and prolonged exp - Cardiovascular Exam Cardiovascular Exam: REGULAR RHYTHM Additional comments: carotid volume is reduced - GI/Abdominal Exam GI & Abdominal Exam: Normal Bowel Sounds - Rectal Exam Rectal Exam: NORMAL INSPECTION - Back Exam Back exam: NORMAL INSPECTION - Neurological Exam Neurological exam: Alert, Normal Gait - Psychiatric Exam Psychiatric exam: Normal Affect, Normal Mood - Skin Skin Exam: Dry, Normal Color, Warm Results - Vital Signs Recent Vital Signs: Last Vital Signs Temp 98.2 F 02/12/17 16:02 Pulse 27 L 02/12/17 16:10 Resp 20 02/12/17 16:02 BP 97/49 L 02/12/17 16:02 Pulse Ox 98 02/12/17 16:02 - Labs Result Diagrams: 02/12/17 09:46 02/12/17 09:46 Labs: Laboratory Results - last 24 hr 02/07/17 02/11/17 02/12/17 16:12 20:52 06:52 WBC RBC Hgb Hct MCV MCH MCHC RDW Plt Count MPV Neut % (Auto) Lymph % (Auto) [place] % (Auto) Eos % (Auto) Baso % (Auto) Neut # Lymph # [place] # Eos # Baso # Sodium Potassium Chloride Carbon Dioxide Anion Gap BUN Creatinine Est GFR ( Amer) Est GFR (Non-Af Amer) POC Glucose (mg/dL) 191 H 86 Random Glucose Calcium Total Bilirubin AST ALT Alkaline Phosphatase Total Creatine Kinase CK-MB (Mass) Troponin I, Quant Total Protein Albumin Globulin Albumin/Globulin Ratio NO UFH Low Dose 0.1 0 NO UFH Low Dose 0.5 0 NO UFH High Dose 100 0 02/12/17 02/12/17 02/12/17 09:46 09:46 11:29 WBC 6.3 RBC 3.60 L Hgb 10.3 L Hct 31.9 L MCV 88.6 MCH 28.6 MCHC 32.3 L RDW 15.2 H Plt Count 132 MPV 8.6 Neut % (Auto) 76.6 H Lymph % (Auto) 12.8 L [place] % (Auto) 7.5 Eos % (Auto) 2.5 Baso % (Auto) 0.6 Neut # 4.8 Lymph # 0.8 L [place] # 0.5 Eos # 0.2 Baso # 0.0 Sodium 136 Potassium 4.7 Chloride 93 L Carbon Dioxide 22 Anion Gap 26 H BUN 82 H Creatinine 12.0 H* Est GFR ( Amer) 5 Est GFR (Non-Af Amer) 4 POC Glucose (mg/dL) 94 Random Glucose 145 H Calcium 8.6 Total Bilirubin 0.8 AST 17 ALT 20 L Alkaline Phosphatase 58 Total Creatine Kinase 45 L CK-MB (Mass) 2.86 Troponin I, Quant 1.0800 H* Total Protein 6.3 Albumin 3.4 L Globulin 2.9 Albumin/Globulin Ratio 1.2 NO UFH Low Dose 0.1 NO UFH Low Dose 0.5 NO UFH High Dose 100 02/12/17 16:34 WBC RBC Hgb Hct MCV MCH MCHC RDW Plt Count MPV Neut % (Auto) Lymph % (Auto) [place] % (Auto) Eos % (Auto) Baso % (Auto) Neut # Lymph # [place] # Eos # Baso # Sodium Potassium Chloride Carbon Dioxide Anion Gap BUN Creatinine Est GFR ( Amer) Est GFR (Non-Af Amer) POC Glucose (mg/dL) 189 H Random Glucose Calcium Total Bilirubin AST ALT Alkaline Phosphatase Total Creatine Kinase CK-MB (Mass) Troponin I, Quant Total Protein Albumin Globulin Albumin/Globulin Ratio NO UFH Low Dose 0.1 NO UFH Low Dose 0.5 NO UFH High Dose 100 Assessment & Plan - Assessment and Plan (Free Text) Assessment: 77 yo with CHF, LBBB, HTN, hypercholesterolemia, ESRD CAD. Admitted with acute NC and new LBBB and CHF. WCT: is artifact. CHF: if it persists after 90 days consider resynchoronization ICD LBBB: stable CAD: stable.
[2017-02-12] MEDS: (Lantus) Insulin Glargine, Recombinant SC SCH (21:33)
[2017-02-13] MEDS ORDERED: Albuterol-Ipratrop 3 mg / 0.5 (3 ml) UD INH STA (00:18)
[2017-02-13] MEDS: Albuterol-Ipratrop 3 mg / 0.5 (3 ml) UD INH SCH ×3 (02:30→13:39)
--- NOTE | 2017-02-13 06:15 | CP.PCM.DIS ---
<Sulaiman Curiel - Last Filed: 02/13/17 15:30> Provider - Provider Date of Admission: 02/04/17 23:04 Attending physician: Gaurang Portillo Consults: Cards: Rm Montes De Oca Nephro: Patrick Time Spent in preparation of Discharge (in minutes): 60 Diagnosis - Discharge Diagnosis (1) Dialysis patient Status: Chronic Priority: Medium Hospital Course - Lab Results Lab Results: Micro Results 02/07/17 18:00 Blood Blood Culture - Final NO GROWTH AFTER 5 DAYS 02/07/17 18:00 Blood Gram Stain - Final TEST NOT PERFORMED 02/07/17 18:30 Blood Blood Culture - Final NO GROWTH AFTER 5 DAYS 02/07/17 18:30 Blood Gram Stain - Final TEST NOT PERFORMED 02/08/17 09:10 Nose MRSA Culture - Final MRSA NOT DETECTED 02/05/17 00:18 Nose MRSA Culture (Admit) - Final MRSA NOT DETECTED Most Recent Lab Values WBC 6.3 K/uL (4.8-10.8) 02/12/17 09:46 RBC 3.60 Mil/uL (4.40-5.90) L 02/12/17 09:46 Hgb 10.3 g/dL (12.0-18.0) L 02/12/17 09:46 Hct 31.9 % (35.0-51.0) L 02/12/17 09:46 MCV 88.6 fL (80.0-94.0) 02/12/17 09:46 MCH 28.6 pg (27.0-31.0) 02/12/17 09:46 MCHC 32.3 g/dL (33.0-37.0) L 02/12/17 09:46 RDW 15.2 % (11.5-14.5) H 02/12/17 09:46 Plt Count 132 K/uL (130-400) 02/12/17 09:46 MPV 8.6 fL (7.2-11.7) 02/12/17 09:46 Neut % (Auto) 76.6 % (50.0-75.0) H 02/12/17 09:46 Lymph % (Auto) 12.8 % (20.0-40.0) L 02/12/17 09:46 [place] % (Auto) 7.5 % (0.0-10.0) 02/12/17 09:46 Eos % (Auto) 2.5 % (0.0-4.0) 02/12/17 09:46 Baso % (Auto) 0.6 % (0.0-2.0) 02/12/17 09:46 Neut # 4.8 K/uL (1.8-7.0) 02/12/17 09:46 Lymph # 0.8 K/uL (1.0-4.3) L 02/12/17 09:46 [place] # 0.5 K/uL (0.0-0.8) 02/12/17 09:46 Eos # 0.2 K/uL (0.0-0.7) 02/12/17 09:46 Baso # 0.0 K/uL (0.0-0.2) 02/12/17 09:46 Neutrophils % (Manual) 87 % (50-75) H 02/05/17 05:25 Band Neutrophils % 2 % (0-2) 02/05/17 05:25 Lymphocytes % (Manual) 6 % (20-40) L 02/05/17 05:25 Monocytes % (Manual) 5 % (0-10) 02/05/17 05:25 Differential Comment 02/07/17 14:44 Platelet Estimate Normal (NORMAL) 02/05/17 05:25 PT 12.3 SECONDS (9.7-12.2) H 02/07/17 14:44 INR 1.1 02/07/17 14:44 APTT 29 SECONDS (21-34) 02/07/17 14:44 Hep-Veronica Thrombocytopen Negative (Negative) 02/07/17 16:12 Puncture Site Lr 02/05/17 02:45 pCO2 47 mm/Hg (35-45) H 02/05/17 02:45 pO2 140 mm/Hg (80-100) H 02/05/17 02:45 HCO3 24.8 mmol/L (21-28) 02/05/17 02:45 ABG pH 7.35 (7.35-7.45) 02/05/17 02:45 ABG Total CO2 27.3 mmol/L (22-28) 02/05/17 02:45 ABG O2 Saturation 98.1 % (95-98) H 02/05/17 02:45 ABG Base Excess -0.2 mmol/L (-2.0-3.0) 02/05/17 02:45 Dudley Test Pos 02/05/17 02:45 ABG Potassium 5.5 mmol/L (3.6-5.2) H 02/05/17 02:45 A-a O2 Difference 514.0 mm/Hg 02/05/17 02:45 Respiratory Index 3.7 02/05/17 02:45 Sodium 137.0 mmol/l (132-148) 02/05/17 02:45 Chloride 101.0 mmol/L (98-107) 02/05/17 02:45 Glucose 157 mg/dl (75-110) H 02/05/17 02:45 Lactate 1.1 mmol/L (0.7-2.1) 02/05/17 02:45 Vent Mode Bipap 02/05/17 02:45 FiO2 100.0 % 02/05/17 02:45 Inspiratory BiPAP 15 02/05/17 02:45 Expiratory BiPAP 5 02/05/17 02:45 Sodium 136 mmol/L (132-148) 02/12/17 09:46 Potassium 4.7 mmol/L (3.6-5.2) 02/12/17 09:46 Chloride 93 mmol/L (98-107) L 02/12/17 09:46 Carbon Dioxide 22 mmol/L (22-30) 02/12/17 09:46 Anion Gap 26 (10-20) H 02/12/17 09:46 BUN 82 mg/dL (9-20) H 02/12/17 09:46 Creatinine 12.0 MG/DL (0.8-1.5) H* 02/12/17 09:46 Est GFR ( Amer) 5 02/12/17 09:46 Est GFR (Non-Af Amer) 4 02/12/17 09:46 POC Glucose (mg/dL) 116 mg/dL (65-110) H 02/12/17 20:59 Random Glucose 145 mg/dL (75-110) H 02/12/17 09:46 Hemoglobin A1c 5.4 % (4.2-6.5) 02/05/17 05:25 Calcium 8.6 mg/dl (8.6-10.4) 02/12/17 09:46 Phosphorus 5.4 mg/dL (2.5-4.5) H 02/09/17 09:28 Magnesium 1.8 mg/dL (1.6-2.3) 02/09/17 09:28 Total Bilirubin 0.8 mg/dL (0.2-1.3) 02/12/17 09:46 AST 17 U/L (17-59) 02/12/17 09:46 ALT 20 U/L (21-72) L 02/12/17 09:46 Alkaline Phosphatase 58 U/L (38-126) 02/12/17 09:46 Total Creatine Kinase 45 U/L (55-170) L 02/12/17 09:46 CK-MB (Mass) 2.86 ng/mL (0.0-3.38) 02/12/17 09:46 Troponin I 54.9000 ng/mL (0.00-0.120) H* 02/05/17 05:25 Troponin I, Quant 1.0800 ng/mL (0.00-0.120) H* 02/12/17 09:46 NT-Pro-B Natriuret Pep 28410 pg/mL (0-900) H 02/05/17 05:25 Total Protein 6.3 g/dL (6.3-8.3) 02/12/17 09:46 Albumin 3.4 g/dL (3.5-5.0) L 02/12/17 09:46 Globulin 2.9 gm/dL (2.2-3.9) 02/12/17 09:46 Albumin/Globulin Ratio 1.2 (1.0-2.1) 02/12/17 09:46 Triglycerides 295 mg/dL (0-149) H 02/05/17 05:25 Cholesterol 148 mg/dL (0-199) 02/05/17 05:25 LDL Cholesterol Direct 78 mg/dL (0-129) 02/05/17 05:25 HDL Cholesterol 23 mg/dL (30-70) L 02/05/17 05:25 Amylase 68 U/L (30-110) 02/05/17 07:48 Lipase 116 U/L (23-300) 02/05/17 07:48 Procalcitonin 1.16 NG/ML (0.19-0.49) H 02/09/17 09:28 Arterial Blood Potassium 5.5 mmol/L (3.6-5.2) H 02/05/17 02:45 Heparin-induced Plt Ab Negative (Negative) 02/07/17 16:12 NO UFH Low Dose 0.1 0 % Release 02/07/17 16:12 NO UFH Low Dose 0.5 0 % Release 02/07/17 16:12 NO UFH High Dose 100 0 % Release 02/07/17 16:12 Mycoplasma pneumon IgM Negative (NEGATIVE) 02/05/17 15:01 Blood Type A POSITIVE 02/07/17 16:04 Antibody Screen Negative 02/07/17 16:04 - Hospital Course Hospital Course: 77 year old male with past medical history of [place] (2017), ESRD, DM, HTN, and hypercholesteremia, presents to the hospital after having cold sweats, shortness of breath, and right abdominal pain that started last night at 7pm. He reports feeling nausea and felt as if he was going to vomit, but couldn't. The patient went to [facility] last night who then transferred him here for cardiac catheterization. At [facility], he was diagnosed with a left bundle branch block and LAD 90% stenosed. Patient has had two stents placed earlier this year. He currently reports feeling fatigued. Patient denies chest pain, palpitations, shortness of breath, nausea, vomiting, abdominal pain, dizzy, vision changes, dysuria, and headaches. Patient was taken to the pharmaceutical laboratory technician and had the proximal LAD stented by Dr. Fuentes. Patient was complaining of RUQ pain that was evaluated with and Abdominal US that was unremarkable. Pain has resolved. had one episode of epistaxis that was resolved with compression. Dr. Pedroza was consulted and said to reconsult if the bleeding recured. Has been attending dialsis every M, W, F Lower extremity doppler was negative for DVT He was complaining of a cough, we cultured his sputum, started IV Avelox 400mg PO QD for 10d per ID (Mangia) for Community acquired PNA. - Date & Time of H&P Date of H&P: 02/05/17 Time of H&P: 11:37 Discharge Exam - Head Exam Head Exam: ATRAUMATIC, NORMAL INSPECTION, NORMOCEPHALIC - Eye Exam Eye Exam: EOMI - ENT Exam ENT Exam: Mucous Membranes Moist - Respiratory Exam Respiratory Exam: NORMAL BREATHING PATTERN, UNREMARKABLE. absent: Rales, Wheezes, Respiratory Distress, Stridor - Cardiovascular Exam Cardiovascular Exam: REGULAR RHYTHM, RRR. absent: Bradycardia, Tachycardia, Clicks, JVD, Systolic Murmur - GI/Abdominal Exam GI & Abdominal Exam: Normal Bowel Sounds, Soft. absent: Bruit, Diminished Bowel Sounds, Distended, Firm, Guarding, Tenderness - Extremities Exam Additional comments: thrill palpated and auscultated on R. arm - Neurological Exam Neurological exam: Alert, Oriented x3 - Psychiatric Exam Psychiatric exam: Normal Affect, Normal Mood - Skin Skin Exam: Dry, Intact, Normal Color, Warm Discharge Plan - Discharge Medications Prescriptions: Losartan [Cozaar] 25 mg PO DAILY #30 tab Moxifloxacin [Avelox] 400 mg PO DAILY 2 Days - Follow Up Plan Condition: GOOD Disposition: HOME/ ROUTINE Patient education suggested?: Yes Instructions: Myocardial Infarction (DC), Heart Failure (DC), Hemodialysis (DC) , Dialysis Diet (DC), Heart Healthy Diet (DC), End Stage Kidney Disease (DC) Additional Instructions: Pt is stable and cleared for D/c from Cardio standpoint, Will need to F/u with Dr. Montes De Oca in 3 weeks for evaluation of Mid LAD lesion with a nuclear stress test. Please call and make an appointment with his office Pt is stable and cleared for D/c from Nephro standpoint. Needs to continue Dialysis MWF at [facility] with Dr. Nguyen. Patient is stable and cleared for D/c from ID standpoint. Patient is Medically stable for D/c home. Please return to ER if symptoms return. Please make an appointment with a primary care physician in 7-10 days. Medication Instructions: Continue home medications that patient stated he had at home. Moxifloxacin 400mg 1 tablet by mouth daily for 2 days Losartan 25 mg 1 Tablet by mouth once per day Patient agrees with plan. Referrals: Nick Nguyen MD [Staff Provider] - Martha Montes De Oca MD [Staff Provider] - Clinical Quality Measures - CQM - Stroke Antithrombotic Prescribed: Yes Statin prescribed: Yes - CQM - VTE Did patient receive overlap therapy during hosptialization?: No - CQM - Heart Failure Ejection Fraction: 40 % or Greater PATRICIA Inhibitor Prescribed: No Contraindication/Reason for not providing: On ARB Beta-Marimar Prescribed: Metoprolol Succinate Angiotensin II Receptor Marimar Prescribed: Yes Will be discharged to: Home Follow Up Date (must be within 7 days from discharge): 02/19/17 Follow Up Time: 09:00 - Date & Time of Discharge Summary Date of Discharge Summary: 02/13/17 Time of Discharge Summary: 06:18 <Horacio Portillo - Last Filed: 02/13/17 21:00> Provider - Provider Date of Admission: 02/04/17 23:04 Attending physician: Viridiana Saleem DO Hospital Course - Lab Results Lab Results: Micro Results 02/07/17 18:00 Blood Blood Culture - Final NO GROWTH AFTER 5 DAYS 02/07/17 18:00 Blood Gram Stain - Final TEST NOT PERFORMED 02/07/17 18:30 Blood Blood Culture - Final NO GROWTH AFTER 5 DAYS 02/07/17 18:30 Blood Gram Stain - Final TEST NOT PERFORMED 02/08/17 09:10 Nose MRSA Culture - Final MRSA NOT DETECTED 02/05/17 00:18 Nose MRSA Culture (Admit) - Final MRSA NOT DETECTED Most Recent Lab Values WBC 6.1 K/uL (4.8-10.8) 02/13/17 07:16 RBC 3.59 Mil/uL (4.40-5.90) L 02/13/17 07:16 Hgb 10.5 g/dL (12.0-18.0) L 02/13/17 07:16 Hct 31.3 % (35.0-51.0) L 02/13/17 07:16 MCV 87.2 fL (80.0-94.0) 02/13/17 07:16 MCH 29.2 pg (27.0-31.0) 02/13/17 07:16 MCHC 33.5 g/dL (33.0-37.0) 02/13/17 07:16 RDW 15.2 % (11.5-14.5) H 02/13/17 07:16 Plt Count 135 K/uL (130-400) 02/13/17 07:16 MPV 8.2 fL (7.2-11.7) 02/13/17 07:16 Neut % (Auto) 72.7 % (50.0-75.0) 02/13/17 07:16 Lymph % (Auto) 15.3 % (20.0-40.0) L 02/13/17 07:16 [place] % (Auto) 8.3 % (0.0-10.0) 02/13/17 07:16 Eos % (Auto) 2.7 % (0.0-4.0) 02/13/17 07:16 Baso % (Auto) 1.0 % (0.0-2.0) 02/13/17 07:16 Neut # 4.5 K/uL (1.8-7.0) 02/13/17 07:16 Lymph # 0.9 K/uL (1.0-4.3) L 02/13/17 07:16 [place] # 0.5 K/uL (0.0-0.8) 02/13/17 07:16 Eos # 0.2 K/uL (0.0-0.7) 02/13/17 07:16 Baso # 0.1 K/uL (0.0-0.2) 02/13/17 07:16 Neutrophils % (Manual) 87 % (50-75) H 02/05/17 05:25 Band Neutrophils % 2 % (0-2) 02/05/17 05:25 Lymphocytes % (Manual) 6 % (20-40) L 02/05/17 05:25 Monocytes % (Manual) 5 % (0-10) 02/05/17 05:25 Differential Comment 02/07/17 14:44 Platelet Estimate Normal (NORMAL) 02/05/17 05:25 PT 12.3 SECONDS (9.7-12.2) H 02/07/17 14:44 INR 1.1 02/07/17 14:44 APTT 29 SECONDS (21-34) 02/07/17 14:44 Hep-Veronica Thrombocytopen Negative (Negative) 02/07/17 16:12 Puncture Site Lr 02/05/17 02:45 pCO2 47 mm/Hg (35-45) H 02/05/17 02:45 pO2 140 mm/Hg (80-100) H 02/05/17 02:45 HCO3 24.8 mmol/L (21-28) 02/05/17 02:45 ABG pH 7.35 (7.35-7.45) 02/05/17 02:45 ABG Total CO2 27.3 mmol/L (22-28) 02/05/17 02:45 ABG O2 Saturation 98.1 % (95-98) H 02/05/17 02:45 ABG Base Excess -0.2 mmol/L (-2.0-3.0) 02/05/17 02:45 [place] Test Pos 02/05/17 02:45 ABG Potassium 5.5 mmol/L (3.6-5.2) H 02/05/17 02:45 A-a O2 Difference 514.0 mm/Hg 02/05/17 02:45 Respiratory Index 3.7 02/05/17 02:45 Sodium 137.0 mmol/l (132-148) 02/05/17 02:45 Chloride 101.0 mmol/L (98-107) 02/05/17 02:45 Glucose 157 mg/dl (75-110) H 02/05/17 02:45 Lactate 1.1 mmol/L (0.7-2.1) 02/05/17 02:45 Vent Mode Bipap 02/05/17 02:45 FiO2 100.0 % 02/05/17 02:45 Inspiratory BiPAP 15 02/05/17 02:45 Expiratory BiPAP 5 02/05/17 02:45 Sodium 136 mmol/L (132-148) 02/13/17 07:16 Potassium 4.6 mmol/L (3.6-5.2) 02/13/17 07:16 Chloride 90 mmol/L (98-107) L 02/13/17 07:16 Carbon Dioxide 27 mmol/L (22-30) 02/13/17 07:16 Anion Gap 23 (10-20) H 02/13/17 07:16 BUN 59 mg/dL (9-20) H 02/13/17 07:16 Creatinine 9.9 MG/DL (0.8-1.5) H* 02/13/17 07:16 Est GFR ( Amer) 6 02/13/17 07:16 Est GFR (Non-Af Amer) 5 02/13/17 07:16 POC Glucose (mg/dL) 109 mg/dL (65-110) 02/13/17 16:22 Random Glucose 84 mg/dL (75-110) 02/13/17 07:16 Hemoglobin A1c 5.4 % (4.2-6.5) 02/05/17 05:25 Calcium 8.5 mg/dl (8.6-10.4) L 02/13/17 07:16 Phosphorus 5.2 mg/dL (2.5-4.5) H 02/13/17 07:16 Magnesium 1.8 mg/dL (1.6-2.3) 02/09/17 09:28 Total Bilirubin 0.7 mg/dL (0.2-1.3) 02/13/17 07:16 AST 15 U/L (17-59) L 02/13/17 07:16 ALT 26 U/L (21-72) 02/13/17 07:16 Alkaline Phosphatase 59 U/L (38-126) 02/13/17 07:16 Total Creatine Kinase 45 U/L (55-170) L 02/12/17 09:46 CK-MB (Mass) 2.86 ng/mL (0.0-3.38) 02/12/17 09:46 Troponin I 54.9000 ng/mL (0.00-0.120) H* 02/05/17 05:25 Troponin I, Quant 1.0800 ng/mL (0.00-0.120) H* 02/12/17 09:46 NT-Pro-B Natriuret Pep 44067 pg/mL (0-900) H 02/05/17 05:25 Total Protein 6.5 g/dL (6.3-8.3) 02/13/17 07:16 Albumin 3.4 g/dL (3.5-5.0) L 02/13/17 07:16 Globulin 3.1 gm/dL (2.2-3.9) 02/13/17 07:16 Albumin/Globulin Ratio 1.1 (1.0-2.1) 02/13/17 07:16 Triglycerides 295 mg/dL (0-149) H 02/05/17 05:25 Cholesterol 148 mg/dL (0-199) 02/05/17 05:25 LDL Cholesterol Direct 78 mg/dL (0-129) 02/05/17 05:25 HDL Cholesterol 23 mg/dL (30-70) L 02/05/17 05:25 Amylase 68 U/L (30-110) 02/05/17 07:48 Lipase 116 U/L (23-300) 02/05/17 07:48 Procalcitonin 1.16 NG/ML (0.19-0.49) H 02/09/17 09:28 Arterial Blood Potassium 5.5 mmol/L (3.6-5.2) H 02/05/17 02:45 Heparin-induced Plt Ab Negative (Negative) 02/07/17 16:12 NO UFH Low Dose 0.1 0 % Release 02/07/17 16:12 NO UFH Low Dose 0.5 0 % Release 02/07/17 16:12 NO UFH High Dose 100 0 % Release 02/07/17 16:12 Mycoplasma pneumon IgM Negative (NEGATIVE) 02/05/17 15:01 Blood Type A POSITIVE 02/07/17 16:04 Antibody Screen Negative 02/07/17 16:04 Attending/Attestation - Attestation I have personally seen and examined this patient.: Yes I have fully participated in the care of the patient.: Yes I have reviewed all pertinent clinical information, including history, physical exam and plan: Yes Notes (Text): 02/13/17 21:00 Discharge plan was thoroughly gone over with the Resident. Horacio Portillo D.O.
[2017-02-13 07:30] LABS: BASO # 0.1 K/uL (0.0-0.2); EOS # 0.2 K/uL (0.0-0.7); EOS % 2.7 % (0.0-4.0); HEMOGLOBIN 10.5 g/dL (12.0-18.0); LYMPH # 0.9 K/uL (1.0-4.3); LYMPH % 15.3 % (20.0-40.0); MEAN CELL VOLUME 87.2 fL (80.0-94.0); MEAN CORPUSCULAR HEMOGLOBIN 29.2 pg (27.0-31.0); MEAN CORPUSCULAR HGB CONC 33.5 g/dL (33.0-37.0); MEAN PLATELET VOLUME 8.2 fL (7.2-11.7); MONO # 0.5 K/uL (0.0-0.8); MONO % 8.3 % (0.0-10.0); NEUT # 4.5 K/uL (1.8-7.0); NEUT % 72.7 % (50.0-75.0); NRBC % 0.2 % (0.0-2.0); RBC 3.59 Mil/uL (4.40-5.90); RED CELL DISTRIBUTION WIDTH 15.2 % (11.5-14.5); WHITE BLOOD COUNT 6.1 K/uL (4.8-10.8)
[2017-02-13] MEDS: Fluticasone-Salmeterol 250-50mcg Diskus INH SCH (07:53)
[2017-02-13 08:25] LABS: ALBUMIN 3.4 g/dL (3.5-5.0)
[2017-02-13 08:28] LABS: ALB/GLOB RATIO 1.1 (1.0-2.1); CALCIUM 8.5 mg/dl (8.6-10.4)
[2017-02-13 08:51] VITALS: BP 122/65; RESP 18; TEMP 97.9
[2017-02-13] MEDS: guaiFENesin 600 mg ER Tab PO SCH ×2 (10:05→17:09)
[2017-02-13] MEDS: Metoprolol Succinate 25 mg XL Tab PO SCH (10:05)
[2017-02-13 12:01] VITALS: PULSE 74; O2SAT 99
--- NOTE | 2017-02-13 14:24 | CP.PCM.PN ---
Subjective - Date & Time of Evaluation Date of Evaluation: 02/13/17 Time of Evaluation: 14:23 - Subjective Subjective: no complaints possible dc today hd yesterday unremarkable Objective - Vital Signs/Intake and Output Vital Signs (last 24 hours): Temp Pulse Resp BP Pulse Ox 97.9 F 74 18 122/65 99 02/13/17 07:30 02/13/17 11:54 02/13/17 07:30 02/13/17 07:30 02/13/17 11:54 Intake and Output: 02/13/17 02/13/17 06:59 18:59 Intake Total 150 Balance 150 - Medications Medications: Current Medications Albuterol/Ipratropium (Duoneb 3 Mg/0.5 Mg (3 Ml) Ud) 3 ml INH RQ6 [facility] Last Admin: 02/13/17 13:39 Dose: Not Given Aspirin (Ecotrin) 81 mg PO DAILY [facility] Last Admin: 02/13/17 10:05 Dose: 81 mg Calcium Acetate (Phoslo) 667 mg PO TIDCC [facility] Last Admin: 02/13/17 12:33 Dose: 667 mg Cinacalcet (Sensipar) 30 mg PO DAILY [facility] Last Admin: 02/13/17 10:05 Dose: 30 mg Famotidine (Pepcid) 20 mg PO DAILY [facility] Last Admin: 02/13/17 10:05 Dose: 20 mg Guaifenesin (Mucinex La) 600 mg PO BID [facility] Last Admin: 02/13/17 10:05 Dose: 600 mg Heparin Sodium (Porcine) (Heparin) 5,000 units SC Q8 [facility] Last Admin: 02/07/17 06:19 Dose: 5,000 units Insulin Glargine (Lantus) 10 unit SC HS [facility] Last Admin: 02/12/17 21:33 Dose: 10 units Insulin Human Regular (Novolin R) 0 unit SC ACHS [facility] PRN Reason: Protocol Last Admin: 02/06/17 12:37 Dose: Not Given Losartan Potassium (Cozaar) 25 mg PO DAILY [facility] Last Admin: 02/13/17 10:05 Dose: 25 mg Metoprolol Succinate (Toprol Xl) 25 mg PO DAILY [facility] Last Admin: 02/13/17 10:05 Dose: 25 mg Moxifloxacin HCl (Avelox) 400 mg PO DAILY [facility] Last Admin: 02/13/17 10:05 Dose: 400 mg Rosuvastatin Calcium (Crestor) 10 mg PO HS [facility] Last Admin: 02/12/17 21:33 Dose: 10 mg Fluticasone/Salmeterol (Advair Diskus 250/50) 1 puff INH RQ12 [facility] Last Admin: 02/13/17 07:53 Dose: Not Given Ticagrelor (Brilinta) 90 mg PO Q12H [facility] Last Admin: 02/13/17 04:07 Dose: 90 mg - Labs Labs: 02/13/17 07:16 02/13/17 07:16 PT 12.3 SECONDS (9.7-12.2) H 02/07/17 14:44 INR 1.1 02/07/17 14:44 APTT 29 SECONDS (21-34) 02/07/17 14:44 - Constitutional Appears: Non-toxic, No Acute Distress - Head Exam Head Exam: NORMAL INSPECTION - Eye Exam Eye Exam: EOMI - ENT Exam ENT Exam: Mucous Membranes Moist, Normal Exam - Neck Exam Neck Exam: Normal Inspection - Respiratory Exam Respiratory Exam: Clear to Ausculation Bilateral, NORMAL BREATHING PATTERN - Cardiovascular Exam Cardiovascular Exam: Irregular Rhythm - GI/Abdominal Exam GI & Abdominal Exam: Distended, Soft, Normal Bowel Sounds - Extremities Exam Extremities Exam: Normal Inspection, Pedal Edema Assessment and Plan (1) Acute myocardial infarction involving left anterior descending (LAD) coronary artery Status: Acute (2) CAD (coronary artery disease) Status: Acute (3) Status post cardiac catheterization Status: Acute (4) Type 2 diabetes mellitus with diabetic nephropathy Status: Acute (5) NSTEMI (non-ST elevated myocardial infarction) Status: Acute (6) ESRD (end stage renal disease) Status: Chronic - Assessment and Plan (Free Text) Assessment: hd mwf stable from renal standpoint
== END 2017-02-13 18:01 | disposition home health service (06) | DRG 246 ==
LOC: C.CATHLAB 22:49 → C.9I 23:04 → EEVIPCON 23:04 → C.6T 02-08 08:33
PROVIDERS: ADMIT Hospitalist; ATTEND Hospitalist
PROC: 027034Z Dilation of Coronary Artery, One Artery with Drug-eluting Intraluminal Device, Percutaneous Approach (ICD-10-PCS; principal; 2017-02-04)
PROC: 4A023N7 Measurement of Cardiac Sampling and Pressure, Left Heart, Percutaneous Approach (ICD-10-PCS; 2017-02-04)
PROC: B2151ZZ Fluoroscopy of Left Heart using Low Osmolar Contrast (ICD-10-PCS; 2017-02-04)
PROC: 3E073PZ Introduction of Platelet Inhibitor into Coronary Artery, Percutaneous Approach (ICD-10-PCS; 2017-02-04)
PROC: 5A1D60Z (ICD-10-PCS; 2017-02-05)
PROC: 30233N1 Transfusion of Nonautologous Red Blood Cells into Peripheral Vein, Percutaneous Approach (ICD-10-PCS; 2017-02-07)
DX: I21.02 ST elevation (STEMI) myocardial infarction involving left anterior descending coronary artery (principal); I25.110 Atherosclerotic heart disease of native coronary artery with unstable angina pectoris; N18.6 End stage renal disease; I13.2 Hypertensive heart and chronic kidney disease with heart failure and with stage 5 chronic kidney disease, or end stage renal disease; I47.2 Ventricular tachycardia; J18.9 Pneumonia, unspecified organism; J44.0 Chronic obstructive pulmonary disease with (acute) lower respiratory infection; E11.21 Type 2 diabetes mellitus with diabetic nephropathy; D69.6 Thrombocytopenia, unspecified; I50.42 Chronic combined systolic (congestive) and diastolic (congestive) heart failure; J44.1 Chronic obstructive pulmonary disease with (acute) exacerbation; I44.7 Left bundle-branch block, unspecified; E87.5 Hyperkalemia; E11.22 Type 2 diabetes mellitus with diabetic chronic kidney disease; J34.2 Deviated nasal septum; R04.0 Epistaxis; D64.9 Anemia, unspecified; E78.00 Pure hypercholesterolemia, unspecified; E78.5 Hyperlipidemia, unspecified; R09.02 Hypoxemia; Z99.2 Dependence on renal dialysis; Z95.5 Presence of coronary angioplasty implant and graft; Z87.891 Personal history of nicotine dependence; Z79.4 Long term (current) use of insulin; I25.2 Old myocardial infarction